=== PATIENT | female | born 1980 | race Caucasian/White ===

== ENCOUNTER 2016-04-22 17:44 | Observation (INO) | payer MEDICAID, SELFPAY ==
[2016-04-22] VITALS (7 sets, daily range): BP systolic 87–124; BP diastolic 57–95; PULSE 93–127; RESP 15–23; TEMP 37.2–38.2; O2SAT 91–100; BMI 26.2; BMI 27.1
--- NOTE | 2016-04-22 18:03 | EKG12_ITS ---
Test Reason : DYSRHYTHMIA Blood Pressure : / mmHG Vent. Rate : 115 BPM Atrial Rate : 115 BPM P-R Int : 130 ms QRS Dur : 084 ms QT Int : 342 ms P-R-T Axes : 080 089 055 degrees QTc Int : 473 ms Sinus tachycardia Otherwise normal ECG Confirmed by LISA ZACARIAS, GUNNAR ([id number]), scientific editor TONY NORRIS ([id number] on 04/25/2016 1:38:12 PM Referred By: TARA Confirmed By:GUNNAR GONZALEZ MD
--- NOTE | 2016-04-22 18:03 | RAD_ITS ---
STUDY: X-RAY CHEST REASON FOR EXAM: Female, 35 years old. Chest pain TECHNIQUE: Single AP portable view of the chest. COMPARISON: 03/05/2016, 03/26/2016.. FINDINGS: Since prior exam, patient has developed focal infiltrate in the left lung base, probably a left lower lobe pneumonia. No other changes or acute abnormalities. Normal size heart. Normal mediastinum and clarence. Normal visualized pulmonary arteries. Normal visualized aortic arch and descending thoracic aorta. Normal visualized thoracic spine. Normal visualized ribs, clavicles, and shoulders. There is no demonstrated abnormality of the visualized soft tissue structures of the upper abdomen. RAD/Chest 1 View (Portable) IMPRESSION: Since prior exam, patient has developed focal infiltrate in the left lung base, probably a left lower lobe pneumonia. Electronically Signed: Brennan Harrington MD at 18:38 EST , Service support [phone],
[2016-04-22] MEDS: Acetaminophen 500 MG Tablet PO (18:55)
[2016-04-22] MEDS: 0.9% Normal Saline 1,000 ML IV.SOLN. 2000 ML IV (18:55)
[2016-04-22 19:06] LABS: Absolute Lymphocyte Count 1.96 X10^3/ul (0.83-4.51); Absolute Neutrophil Count 9.6 X10^3/uL (2.0-7.7); Basophil# 0.04 X10^3/uL; Basophil% 0.3 % (0-1); Eosinophil# 0.15 X10^3/uL; Eosinophils% 1.1 % (0-5); Hematocrit 41.3 % (37-47); Hemoglobin 13.8 g/dl (12.0-15.0); Lymphocyte # 1.96 X10^3/ul (4.0); Lymphocyte % 14.5 % (19-41); Mean Corp Hgb Conc 33.4 g/gl (32-36); Mean Corpuscular Hgb 31.4 pg (27.0-32.0); Mean Corpuscular Volume 93.9 fL (81-99); Mean Platelet Vol. 9.5 fl (6.2-12.0); Monocyte# 1.69 X10^3/uL; Monocyte% 12.5 % (0-10); Neutrophil # 9.61 X10^3/uL (2.7-7.7); Neutrophil % 71.3 % (47-70); Platelet Count 382 K/mm3 (150-450); RBC Distribution Width CV 13.8 % (11.6-14.6); RBC Distribution Width SD 45.4 fl (35.1-43.9); White Blood Count 13.5 K/mm3 (4.4-11.0)
[2016-04-22 19:07] LABS: Differential Indicated SCAN CRITERIA MET; POSITIVE COUNT NO; POSITIVE DIFFERENTIAL YES; POSITIVE MORPHOLOGY NO
[2016-04-22 19:35] LABS: ALB/GLOB Ratio 0.6 RATIO (0.9-2.4); AST(SGOT) 29 U/L (15-37); Alanine Aminotransfer ALT/SGPT 25 U/L (12-78); Albumin, Serum 3.3 g/dL (3.4-5.0); Alkaline Phosphatase 74 U/L (45-117); Anion Gap 9 (5-15); BUN 13 mg/dL (7-18); BUN/Creat Ratio 18.6 RATIO (10-20); Chloride 100 mmol/L (98-107); EST Glomerular Filtration Rate 100 mL/min (>60); Est Glom Filt Rate - Afr Amer 121 mL/min (>60); Estimated Creatinine Clearance 91.02 ml/min; Globulin 5.5 g/dL (2.3-3.5); Glucose 91 mg/dL (70-110); Potassium 3.6 mmol/L (3.5-5.1); Protein, Total 8.8 g/dL (6.4-8.2); Sodium Level 135 mmol/L (136-145)
[2016-04-22 19:38] LABS: Bacteria 0 SEEN /hpf (None Seen)
[2016-04-22 19:40] LABS: Color, Urine Yellow (Yellow); Glucose, Dipstick Normal (Normal); Ketone-Dipstick Negative (Negative); Leukocyte Esterase-Dipstick 25 /ul (Negative); Nitrite-Dipstick Negative (Negative); Occult Blood-Urine 25 /ul (Negative); Protein-Dipstick 100 mg/dl (Negative); Specific Gravity, Urine 1.025 (1.002-1.030); Urine Bilirubin Dipstick Negative (Negative); Urine Clarity Sl. Cloudy (Clear); Urine Urobilinogen 1 mg/dl (Normal)
[2016-04-22 19:40] LABS: Differential Comment SCANNED; Platelet Estimate ADEQUATE (ADEQ)
[2016-04-22 19:48] LABS: International Normalized Ratio 1.3; Prothrombin Time (Protime)PT. 15.8 SECONDS (11.7-14.9)
[2016-04-22 19:49] LABS: Partial Thromboplast Time 36.1 Seconds (24.1-36.2)
[2016-04-22 19:50] LABS: Amorphous Sediment 1+ URATE; Mucous, Urine 1+ /hpf (<or=2+); Red Blood Cells-Urine 0-5 SEEN /hpf (0-5); Squamous Epithelial Cells - UA 5-10 SEEN /hpf (5-10); White Blood Cells 0-5 SEEN /hpf (0-5)
[2016-04-22 19:58] LABS: Lactic Acid 1.1 mmol/L (0.4-2.0)
--- NOTE | 2016-04-22 21:21 | HP.PCM_ITS ---
History of Present Illness Date of Admission: 04/22/16 Chief Complaint: Pain all over, shortness of breath The patient is a 35 year old female came into the ED complaining of pain all over, shortness of breath, nausea, something on skin. Patient was seen and examined in the ED. Anxious, somewhat agitated. Very poor historian. States that his symptoms started on Saturday-2 days ago, she was getting very sick, and was getting progressively worse in the last 2 days. She complains of worsening pain all over, shortness of breath, cough productive of yellow/brownish sputum, fever and chills, she did not check her temperature at home. She does have pain with deep inspiration and shows the diaphragm on both sides. She also complains of something on her skin, there is painful, and feeling like bugs are crawling underneath of her skin. Patient states that she was cleaning some of the house who had bedbugs, and she is afraid she gets to bed bugs too. Patient denies urinary complaints, says it does have nausea and vomiting for the last 2 days, states that have had black color vomitus. States that have had diarrhea but had black color in it, also noted some blood in the stool, nevertheless her hemoglobin is normal in the ED. Past medical history. Polysubstance abuse. Depression. Chronic pain, used to follow his pain management, but was fired from pain management clinic for noncompliance. Social history. 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 Patient has history of polysubstance abuse, admits on using methamphetamine and Saturday-2 days ago, marijuana brownie recently. Says that last week was taking Percocets from her dentist. She also was taking muscle relaxants, she states it is a left over from her previous prescriptions. Patient states that she clean is clean from heroin for 1 year. Patient says that she was sober for 6 years. Smokes 1 pack per day, smoking since age of 8. Family history. No relevant history per patient. Past Medical History Allergies ibuprofen Allergy (Verified 04/22/16 17:48) Hives naproxen Allergy (Verified 04/22/16 17:48) Anaphylaxis prednisone Allergy (Verified 04/22/16 17:48) Anaphylaxis Home Medications: Ambulatory Orders Medication Instructions Recorded Hydroxyzine Pamoate [Vistaril] 50 mg PO TID PRN 04/21/16 Paroxetine [Paxil] 10 mg PO DAILY 04/21/16 Quetiapine Fumarate [Seroquel] 50 mg PO TID 04/21/16 Quetiapine Fumarate [Seroquel] 200 mg PO QHS 04/21/16 Trazodone HCl [Desyrel] 100 mg PO QHS 04/22/16 Surgical History: - - Tubal ligation Psychiatric History: No pertinent psych hx DIRECTOR MEETINGS History: No pertinent DIRECTOR MEETINGS history Smoking Status: Current every day smoker - *Family History Maternal History Items: Cancer Paternal History Items: - - CHF Review of Systems Constitutional: Reports: Anorexia, Chills, Fever. Denies: Malaise, Weakness, Fatigue Eyes: Denies: Vision Change HEENT: Denies: Visual Changes Cardiovascular: Reports: Edema, - - Patient reports pain all over, reports chest pain but it seems to be more like pleuritic at the level of the diaphragm.. Denies: Light Headedness Respiratory: Reports: Cough, Pleuritic Pain, Shortness of Breath, Sputum production. Denies: Hemoptysis Gastrointestinal: Reports: Abdominal Pain, Constipation, Diarrhea, Dyspepsia, Hematemesis, Nausea, Melena, Vomiting. Denies: Hematochezia Genitourinary: Denies: Dysuria, Frequency, Hematuria, Hesitancy, Incontinence, Retention, Urgency Gynecological: Denies: Vaginal discharge, Vaginal itching Musculoskeletal: Reports: - - Patient reports pain all over Skin: Reports: Lesions, Pruritis, Rash, Skin Changes Neurological: Denies: Balance problems, Blurred vision, Double vision, Change in Speech, Slurred speech, Confusion, Difficulty swallowing, Focal weakness, Headaches, Incoordination, Numbness, Tremor, Seizures Psychiatric: Reports: Anxiety, Depression. Denies: Suicidal Ideations Endocrine: Denies: Change in Body Habitus Hematologic/ Lymphatic: Denies: Adenopathy, Anemia, Petechiae, Hx of blood clot Comment: On the questions of review of systems patient chest to answer yes to almost any question, and is extremely hard to get adequate and reliable answers from her VTE Information - Inpt Only VTE Present on Admission: No Objective: General: Patient is sitting in bed, anxious and agitated, thrashing in bed, cannot sit still for less than few seconds. Awake, alert, oriented ?3. HEENT: Atraumatic, Normocephalic. Clear conjunctiva. Oral mucosa is slightly dry. Neck: No no asymmetry. PERRLA. Skin: Clean, dry, multiple tattoos all over, multiple scabs all over, and the areas were patient shows to have crawling sensation on her neck no visible rashes noted. Patient has excoriations all over. His skin discoloration mostly on her head and upper extremities. Lungs: Good air entry bilaterally with mild rhonchi CVS: S1-S2 present, no murmurs appreciated, regular rate, good radial pulses. Capillary refill is less than 3 Seconds. Abdomen: Soft, extremely tender with palpation over, although when patient is get distracted she does not appear to be in pain with palpation, no guarding, no rebound tenderness, nondistended, bowel sounds present. Bilateral CVA tenderness. Extremities: No clubbing, No cyanosis. No visible deformities. No lower extremity edema. Psych/Mental Status: Patient does look to be anxious and somewhat agitated, although answers appropriately and follow commands. Neuro: No focal neurological findings. - Physical Exam Vital Signs Temp Pulse Resp BP Pulse Ox 37.7 C 102 22 114/95 99 04/22/16 18:53 04/22/16 20:01 04/22/16 20:01 04/22/16 20:01 04/22/16 20:01 Oxygen Delivery Method Room Air Weight: 67.3 kg Body Mass Index (BMI) 26.2 Finger Stick Blood Glucose 115 Laboratory Tests Past 24 Hrs 04/22/16 04/22/16 04/22/16 18:50 18:50 19:20 WBC 13.5 H RBC 4.40 Hgb 13.8 Hct 41.3 MCV 93.9 MCH 31.4 MCHC 33.4 RDW 13.8 RDW Differential 45.4 H Plt Count 382 MPV 9.5 Immature Gran % (Auto) 0.300 Neut % (Auto) 71.3 H Lymph % (Auto) 14.5 L [place] % (Auto) 12.5 H Eos % (Auto) 1.1 Baso % (Auto) 0.3 Absolute Neuts (auto) 9.6 H Absolute Lymphs (auto) 1.96 Total Counted Not Reportable Differential Comment SCANNED Platelet Estimate ADEQUATE PT 15.8 H INR 1.3 APTT 36.1 Sodium 135 L Potassium 3.6 Chloride 100 Carbon Dioxide 26.0 Anion Gap 9 BUN 13 Creatinine 0.70 Estim Creat Clear Calc 91.02 Est GFR (MDRD) Af Amer 121 Est GFR (MDRD) Non-Af 100 BUN/Creatinine Ratio 18.6 Glucose 91 Lactic Acid Calcium 9.0 Total Bilirubin 0.60 AST 29 ALT 25 Alkaline Phosphatase 74 Total Protein 8.8 H Albumin 3.3 L Globulin 5.5 H Albumin/Globulin Ratio 0.6 L Urine Color Urine Clarity Urine pH Ur Specific [place] Urine Protein Urine Glucose (UA) Urine Ketones Urine Occult Blood Urine Nitrite Urine Bilirubin Urine Urobilinogen Ur Leukocyte Esterase Urine RBC Urine WBC Ur Squamous Epith Cells Amorphous Sediment Urine Bacteria Urine Mucus 04/22/16 04/22/16 19:20 19:30 WBC RBC Hgb Hct MCV MCH MCHC RDW RDW Differential Plt Count MPV Immature Gran % (Auto) Neut % (Auto) Lymph % (Auto) [place] % (Auto) Eos % (Auto) Baso % (Auto) Absolute Neuts (auto) Absolute Lymphs (auto) Total Counted Differential Comment Platelet Estimate PT INR APTT Sodium Potassium Chloride Carbon Dioxide Anion Gap BUN Creatinine Estim Creat Clear Calc Est GFR (MDRD) Af Amer Est GFR (MDRD) Non-Af BUN/Creatinine Ratio Glucose Lactic Acid 1.1 Calcium Total Bilirubin AST ALT Alkaline Phosphatase Total Protein Albumin Globulin Albumin/Globulin Ratio Urine Color Yellow Urine Clarity Sl. Cloudy Urine pH 6.0 Ur Specific [place] 1.025 Urine Protein 100 H Urine Glucose (UA) Normal Urine Ketones Negative Urine Occult Blood 25 H Urine Nitrite Negative Urine Bilirubin Negative Urine Urobilinogen 1 H Ur Leukocyte Esterase 25 H Urine RBC 0-5 SEEN Urine WBC 0-5 SEEN Ur Squamous Epith Cells 5-10 SEEN Amorphous Sediment 1+ URATE Urine Bacteria 0 SEEN Urine Mucus 1+ Assessment/Plan * Left lower lobe community acquired pneumonia. Treatment per pneumonia protocol with antibiotics, breathing treatments, expectorants. Will follow with Legionella, strep antigens. It is possible that patient has pleuritic pain - will give Tylenol and lidocaine, will monitor for response. We are very cautious giving opioids as patient has history of polysubstance abuse. * Sepsis, SIRS Criteria 3/4, source of infection is community acquired pneumonia. Stable blood pressure, normal lactic acid. Cultures obtained, continue antibiotics, IV fluids. * History of polysubstance abuse. Patient reports pain all over, recent use of opiates, methamphetamine, marijuana. Suspect withdrawal - considering pain all over, diarrhea, crawling sensation on the skin, etc. Will follow his urine toxicology screen. Patient reports allergy to NSAIDs. Review of systems patient tries to answer yes and a lot of pain questions. 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 Suspect drug-seeking behavior. Will be very cautious with pain meds, will start her on Tylenol for now, will observe, considering history of opiate dependency/abuse will avoid opiates as much as possible. * Patient reports history of depression, taking paroxetine. Suspect also underlying psychiatric problem as she was on Seroquel as well. We will continue home medications, will monitor. * Tobacco use disorder. Smoking cessation counseling. Nicotine replacement therapy with nicotine patch. * DVT prophylaxis with Lovenox SQ. Dragon Dictation.
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
[2016-04-22] MEDS: 0.9% Normal Saline 1,000 ML 100 ML IV (23:42)
[2016-04-22] MEDS: Ipratropium/Albuterol Sulfate 3 ML AMPUL.NEB INHALATION (23:56)
--- NOTE | 2016-04-22 23:59 | NURSING ---
Patient c/o 11/27 pain, states it is the worst pain she's ever felt in her life. This nurse offered patient tylenol as per Dr Solitario orders. Patient refuses tylenol stating if they're going to treat this as a joke then I'll just leave. Charge nurse notified of patient's complaint. Dr Solitario paged to notify and that patient would like to speak to him.
[2016-04-23] VITALS (13 sets, daily range): BP systolic 90–112; BP diastolic 36–60; PULSE 88–121; RESP 18–20; TEMP 36.7–39; O2SAT 92–99
--- NOTE | 2016-04-23 00:21 | NURSING ---
Dr Solitario ordered patient lidocaine patches to be applied to left side and states that this is the only order he is willing to give at this time. Patient notified of this new order and states that lidocaine does not work for her. Patient notified that this is the only order Dr Solitario is willing to give at this time. Patient responded that she is willing to try the patches because the dr ordered it and I will follow the dr's orders but if they don't work she will leave and take care of this pain herself. Dr Solitario was notified of patient's desire to leave AMA if she does not get pain relief and he states he is ok with that.
[2016-04-23] MEDS: Lidocaine 5% Patch 2 PATCH TOPICAL (00:59)
[2016-04-23] MEDS: Pantoprazole Sodium 40 MG Tablet PO ×2 (01:05→10:22)
[2016-04-23 02:44] LABS: Amphetamine Urine VISTA POSITIVE (<1000 ng/mL); Barbiturate Urine VISTA NEGATIVE (< 200 ng/mL); Benzodiazepine Urine VISTA NEGATIVE (< 200 ng/mL); Cocaine Urine VISTA NEGATIVE (< 300 ng/mL); Ecstacy Urine VISTA NEGATIVE (< 500 ng/mL); Methadone Urine VISTA NEGATIVE (< 300 ng/mL); PCP Urine VISTA NEGATIVE (< 25 ng/mL); THC Urine VISTA NEGATIVE (< 50 ng/mL); Vista UDS pH Range 5
--- NOTE | 2016-04-23 05:32 | NURSING ---
After sleeping for several hours, pt awoke screaming in pain, denies that she's been able to sleep in 48 hrs, demanding something for pain relief. Dr Solitario paged. Patient unable to calm down, yelling cuss words.
--- NOTE | 2016-04-23 05:55 | US_ITS ---
STUDY: RENAL ULTRASOUND - COMPLETE REASON FOR EXAM: Female, 35 years old. flank pain TECHNIQUE: Ultrasound evaluation of the kidneys was performed with real-time and static inman-scale imaging. COMPARISON: None. FINDINGS: RIGHT KIDNEY: Normal location of the right kidney, which is normal in size. The right kidney measures 12.3x 6x5.9 cm. There is a normal cortex of the right kidney. The renal cortex measures 1.2 cm. There is no right renal mass or cyst. There are no right renal calculi. There is no right hydronephrosis. DISTAL RIGHT URETER: There is non-visualization of the distal right ureter. There is no demonstrated right ureterovesical junction calculus. There is no demonstrated right ureteral jet. LEFT KIDNEY: Normal location of the left kidney, which is normal in size. The left kidney measures 15x3.9x7.0 cm. There is a normal cortex of the left kidney. The renal cortex measures 1.7 cm. There is no left renal mass or cyst. There are no left renal calculi. There is no left hydronephrosis. DISTAL LEFT URETER: There is non-visualization of the distal left ureter. There is no demonstrated left ureterovesical junction calculus. There is no demonstrated left ureteral jet. AORTA: There is no demonstrated aneurysm.. I.V.C.: The IVC is patent. US/Kidney and Bladder IMPRESSION: Normal ultrasound of the kidneys and urinary bladder. Electronically Signed: Delvis Woody MD at 10:18 EST Tel , Service support [phone],
[2016-04-23] MEDS: Ipratropium/Albuterol Sulfate 3 ML AMPUL.NEB INHALATION (07:07)
--- NOTE | 2016-04-23 07:14 | CPS ---
Pt refused PEP at this time
--- NOTE | 2016-04-23 09:36 | PCM.PROGNOTE ---
Subjective: Chief complaint: Follow-up after admission for community-acquired pneumonia. Patient seen and examined. No acute events overnight. She is sleepy but arousable. She complains of pain all over. She is complaining of cough with sputum production. Denies fever chills. She has been having spikes of low-grade fever, tachycardia, blood pressure is stable. - Physical Exam General: Alert, Cooperative, No apparent distress, Lethargic HEENT: Atraumatic, PERRLA, EOMI Oral: Moist Mucosa, No Gingival or Mucosal Lesions/ Ulcerations Neck: Supple, No JVD, Negative Carotid Bruits, Thyroid Normal Size and Texture Lungs: Clear to auscultation, No rhonchi, No wheeze, No rales, Diminished, - - Decreased breath sounds bilateral, more on the left base. Cardiovascular: Regular rate, Regular Rhythm, Normal S1, Normal S2, PMI Normal, Tachycardic Abdomen: Bowel Sounds Present, Soft, Non Tender, Non-Distended, No Hepato-splenomegaly Extremities: No clubbing, No cyanosis, No edema Skin: No rashes, No breakdown Lymphatic: No Cervical, Supraclavicular, or Inguinal Adenopathy Neurological: Cranial nerves II-XII grossly intact, - - Moving all limbs. Psych/Mental Status: Flat Affect Vital Signs Temp Pulse Resp BP Pulse Ox 100.2 F 115 20 90/36 94 04/23/16 07:45 04/23/16 07:45 04/23/16 07:45 04/23/16 07:45 04/23/16 07:45 Oxygen Delivery Method Room Air Weight: 153 lb 3.54 oz Body Mass Index (BMI) 27.1 Intake and Output for Last 24 Hours 04/21/16 04/22/16 04/23/16 23:59 23:59 23:59 Intake Total 1773 Output Total 500 Balance 1273 Microbiology Past 72 Hours 04/22/16 23:55 Stool Occult Blood (JANET) - Final Stool Occult Blood Positive Clinical Impression(s) from Imaging Studies Chest X-Ray 04/22/16 18:03 IMPRESSION: Since prior exam, patient has developed focal infiltrate in the left lung base, probably a left lower lobe pneumonia. Electronically Signed: Brennan Harrington MD at 18:38 EST , Service support [phone], Assessment/Plan This is a 35 years old female patient admitted because of shortness of breath and cough as well as pain all over and she was found to have left lower lobe infiltrate consistent with community acquired pneumonia. #1 left lower lobe community-acquired pneumonia/sepsis: She is on IV Rocephin and Zithromax as well as IV fluids. She still having spikes of low-grade fever, tachycardia, blood pressure borderline. Chest x-ray reviewed. Pneumococcal and Legionella antigen were negative. Blood and urine cultures are pending. Lactic acid was normal. Plan: Continue same treatment. #2 polysubstance abuse: Urine drug screen was positive for amphetamines. Patient complains of pain all over with recent use of opioids, methamphetamine and marijuana. At this time, she is slightly tachycardic, blood pressure is borderline. He is on IV fluids, Tylenol as needed, Lidoderm patch, trying to avoid narcotics. #3 depression: Continue continue Paxil and Seroquel. #4 tobacco abuse: Continue nicotine patch. #5 DVT prophylaxis: Subcu Lovenox. This note was generated with vivit dictation software. It may contain incorrect words, spelling, and punctuation that were not noted in checking the note before signing.
--- NOTE | 2016-04-23 09:47 | PN_ITS ---
Subjective: Chief complaint: Follow-up after admission for community-acquired pneumonia. Patient seen and examined. No acute events overnight. She is sleepy but arousable. She complains of pain all over. She is complaining of cough with sputum production. Denies fever chills. She has been having spikes of low- grade fever, tachycardia, blood pressure is stable. - Physical Exam General: Alert, Cooperative, No apparent distress, Lethargic HEENT: Atraumatic, PERRLA, EOMI Oral: Moist Mucosa, No Gingival or Mucosal Lesions/ Ulcerations Neck: Supple, No JVD, Negative Carotid Bruits, Thyroid Normal Size and Texture Lungs: Clear to auscultation, No rhonchi, No wheeze, No rales, Diminished, - - Decreased breath sounds bilateral, more on the left base. Cardiovascular: Regular rate, Regular Rhythm, Normal S1, Normal S2, PMI Normal, Tachycardic Abdomen: Bowel Sounds Present, Soft, Non Tender, Non-Distended, No Hepato- splenomegaly Extremities: No clubbing, No cyanosis, No edema Skin: No rashes, No breakdown Lymphatic: No Cervical, Supraclavicular, or Inguinal Adenopathy Neurological: Cranial nerves II-XII grossly intact, - - Moving all limbs. Psych/Mental Status: Flat Affect Vital Signs Temp Pulse Resp BP Pulse Ox 100.2 F 115 20 90/36 94 04/23/16 07:45 04/23/16 07:45 04/23/16 07:45 04/23/16 07:45 04/23/16 07:45 Oxygen Delivery Method Room Air Weight: 153 lb 3.54 oz Body Mass Index (BMI) 27.1 Intake and Output for Last 24 Hours 04/21/16 04/22/16 04/23/16 23:59 23:59 23:59 Intake Total 1773 Output Total 500 Balance 1273 Microbiology Past 72 Hours 04/22/16 23:55 Stool Occult Blood (JANET) - Final Stool Occult Blood Positive Clinical Impression(s) from Imaging Studies Chest X-Ray 04/22/16 18:03 IMPRESSION: Since prior exam, patient has developed focal infiltrate in the left lung base, probably a left lower lobe pneumonia. Electronically Signed: Brennan Harrington MD at 18:38 EST , Service support [phone], Assessment/Plan This is a 35 years old female patient admitted because of shortness of breath and cough as well as pain all over and she was found to have left lower lobe infiltrate consistent with community acquired pneumonia. #1 left lower lobe community-acquired pneumonia/sepsis: She is on IV Rocephin and Zithromax as well as IV fluids. She still having spikes of low-grade fever , tachycardia, blood pressure borderline. Chest x-ray reviewed. Pneumococcal and Legionella antigen were negative. Blood and urine cultures are pending. Lactic acid was normal. Plan: Continue same treatment. #2 polysubstance abuse: Urine drug screen was positive for amphetamines. Patient complains of pain all over with recent use of opioids, methamphetamine and marijuana. At this time, she is slightly tachycardic, blood pressure is borderline. He is on IV fluids, Tylenol as needed, Lidoderm patch, trying to avoid narcotics. #3 depression: Continue continue Paxil and Seroquel. #4 tobacco abuse: Continue nicotine patch. #5 DVT prophylaxis: Subcu Lovenox. This note was generated with [employer] dictation software. It may contain incorrect words, spelling, and punctuation that were not noted in checking the note before signing.
[2016-04-23] MEDS: Enoxaparin 40 MG/0.4 ML Syringe SC (10:21)
[2016-04-23] MEDS: Azithromycin 250 MG Tablet 500 MG PO (10:24)
[2016-04-23] MEDS: Acetaminophen 325 MG Tablet 650 MG PO ×2 (10:25→21:16)
[2016-04-23] MEDS: 0.9% Normal Saline 1,000 ML 100 ML IV ×2 (10:26→21:19)
[2016-04-23 11:37] LABS: Anion Gap 8 (5-15); BUN 9 mg/dL (7-18); BUN/Creat Ratio 13.6 RATIO (10-20); Chloride 108 mmol/L (98-107); Creatinine, Serum 0.66 mg/dL (0.55-1.02); EST Glomerular Filtration Rate 107 mL/min (>60); Est Glom Filt Rate - Afr Amer 129 mL/min (>60); Estimated Creatinine Clearance 96.54 ml/min; Glucose 93 mg/dL (70-110); Potassium 3.5 mmol/L (3.5-5.1); Sodium Level 141 mmol/L (136-145)
[2016-04-23] MEDS: Cefdinir 300 MG Capsule PO ×2 (12:43→21:19)
[2016-04-24] VITALS (9 sets, daily range): BP systolic 87–112; BP diastolic 53–76; PULSE 69–105; RESP 14–20; TEMP 37.1–37.2; O2SAT 94–98
[2016-04-24] MEDS: 0.9% Normal Saline 1,000 ML 100 ML IV ×2 (07:17→18:39)
[2016-04-24] MEDS: Enoxaparin 40 MG/0.4 ML Syringe SC (09:29)
[2016-04-24] MEDS: Cefdinir 300 MG Capsule PO ×2 (09:29→21:44)
[2016-04-24] MEDS: Pantoprazole Sodium 40 MG Tablet PO (09:29)
[2016-04-24] MEDS: Azithromycin 250 MG Tablet 500 MG PO (09:29)
--- NOTE | 2016-04-24 10:04 | PN_ITS ---
Subjective: Chief complaint: Follow-up after admission for community-acquired pneumonia. Patient seen and examined. No acute events overnight. Today, she complains of left lower lateral chest pain which is likely pleuritic pain secondary to pneumonia. She has spiked fever last night, still complained of cough with sputum production. Denied anterior chest pain, dizziness or lightheadedness. This morning, blood pressure was borderline but stable, she has no symptoms. - Physical Exam General: Alert, Oriented x3, Cooperative HEENT: Atraumatic, PERRLA, EOMI Oral: Moist Mucosa, No Gingival or Mucosal Lesions/ Ulcerations Neck: Supple, No JVD, Negative Carotid Bruits, Trachea Midline, Thyroid Normal Size and Texture Lungs: Clear to auscultation, No rhonchi, No wheeze, No rales, Diminished, - - These breath sounds bilateral, more on the left base. Cardiovascular: Regular rate, Regular Rhythm, Normal S1, Normal S2 Abdomen: Bowel Sounds Present, Soft, Non Tender, Non-Distended, No Hepato- splenomegaly Extremities: No clubbing, No cyanosis, No edema Skin: No rashes, No breakdown Neurological: Neuro grossly intact Psych/Mental Status: Flat Affect, Depressed Vital Signs Temp Pulse Resp BP Pulse Ox 98.8 F 83 16 95/53 95 04/24/16 09:39 04/24/16 09:39 04/24/16 09:39 04/24/16 09:39 04/24/16 09:39 Oxygen Delivery Method Room Air Weight: 153 lb 3.54 oz Body Mass Index (BMI) 27.1 Intake and Output for Last 24 Hours 04/22/16 04/23/16 04/24/16 23:59 23:59 23:59 Intake Total 4503 2354 Output Total 500 Balance 4003 2354 Microbiology Past 72 Hours 04/23/16 10:35 Gram Stain - Final Sputum, Expectorated/Coughed 04/22/16 23:55 Stool Occult Blood (JANET) - Final Stool Occult Blood Positive Laboratory Tests Past 24 Hrs 04/23/16 10:20 Sodium 141 Potassium 3.5 Chloride 108 H Carbon Dioxide 25.0 Anion Gap 8 BUN 9 Creatinine 0.66 Estim Creat Clear Calc 96.54 Est GFR (MDRD) Af Amer 129 Est GFR (MDRD) Non-Af 107 BUN/Creatinine Ratio 13.6 Glucose 93 Calcium 8.0 L Assessment/Plan This is a 35 years old female patient admitted because of shortness of breath and cough as well as pain all over and she was found to have left lower lobe infiltrate consistent with community acquired pneumonia. #1 left lower lobe community-acquired pneumonia/sepsis: She is on oral Zithromax and Omnicef. She still having spikes of low-grade fever, no more tachycardia, blood pressure is borderline but stable. Chest x-ray reviewed. Pneumococcal and Legionella antigen were negative. Urine culture showed mixed growth. Blood and sputum cultures are pending. Lactic acid was normal. Plan: Continue same treatment, possible DC home tomorrow. #2 polysubstance abuse: Urine drug screen was positive for amphetamines. Patient complains of pain all over with recent use of opioids, methamphetamine and marijuana. Vital signs stabilized, no more tachycardic, blood pressure is borderline but stable.. He is on IV fluids, Tylenol as needed, Lidoderm patch, trying to avoid narcotics. #3 depression: Continue continue Paxil and Seroquel. #4 tobacco abuse: Continue nicotine patch. #5 DVT prophylaxis: Subcu Lovenox. This note was generated with [employer] dictation software. It may contain incorrect words, spelling, and punctuation that were not noted in checking the note before signing.
[2016-04-24] MEDS: 0.9% NaCl Peripheral Flush Adult/Peds 5 ML IV ×2 (10:40→18:37)
[2016-04-24] MEDS: Ketorolac 30 MG/ML Syringe IV ×2 (10:40→18:37)
--- NOTE | 2016-04-24 10:44 | CASEMGMT ---
Addendum entered by Yen Greenwood 04/24/16 11:03: Return call from [facility] at [facility]. Pt has been a client at [facility] since 2007. Appointment set for Saturday04/27/16 at 9:45. Written appointment date and time provided to patient. BRAD Guerrero Original Note: Met with pt in room and introduced self and role of SW. Pt states that she lives alone and does have support from her sister if needed. She states she does have two children who are 16 and 18 and she and the children's father have shared custody. Discussed [facility] drug program with patient and pt stating that she is familiar with the program but has never used it. Initially pt resistant to program but as conversation continued she states she would like to see someone there. She is agreeable to SW setting up appointment for her and when asked she confirms that she has transportation or can walk to the appointment. Pt then states that she has a court appointment tomorrow with Judge Milton and is concerned that she will not be at the hearing. Per physician, discharge is not anticipated for today. ROLAN placed phone call to [facility]. Spoke with secretary administrative assistant at [employer]'s office who confirms that pt has an arraignment with Judge Cardona tomorrow and lackey had been previously posted for pt and she is to appear tomorrow. SW informed that pt is currently in the hospital and is expected to be here overnight. Hand Binder[employer] Assembly Worker expressed understanding of this and states that this SW and hospital does not need to do anything further although she does not know how the court will handle this situation. Phone call placed to [facility] to set up appointment. Message left with Arleth Pittman to return call to set up appointment. Met with pt and informed her that court has been notified of her hospitalization and that she will need to follow up with the court to determine what the next step she will need to take is. SW will remain available should needs arise. BRAD Guerrero
[2016-04-24] MEDS: Acetaminophen 325 MG Tablet 650 MG PO (14:41)
--- NOTE | 2016-04-24 15:17 | CM.UR ---
LINE TECHNICIAN NOTE ATTEMPTED TO FIND PCP FOR PATIENT AND HAVE BEEN UNSUCCESSFUL R/T EITHER NOT TAKING NEW PATIENTS OR DO NOT TAKE FOREMAN. PATIENT WILL HAVE TO USE [facility] IN [place].
[2016-04-24 15:32] LABS: Absolute Lymphocyte Count 1.97 X10^3/ul (0.83-4.51); Absolute Neutrophil Count 4.9 X10^3/uL (2.0-7.7); Basophil# 0.02 X10^3/uL; Basophil% 0.3 % (0-1); Eosinophil# 0.31 X10^3/uL; Eosinophils% 3.9 % (0-5); Hematocrit 34.1 % (37-47); Hemoglobin 10.7 g/dl (12.0-15.0); Lymphocyte # 1.97 X10^3/ul (4.0); Mean Corp Hgb Conc 31.4 g/gl (32-36); Mean Corpuscular Hgb 30.4 pg (27.0-32.0); Mean Corpuscular Volume 96.9 fL (81-99); Mean Platelet Vol. 9.8 fl (6.2-12.0); Monocyte# 0.65 X10^3/uL; Monocyte% 8.3 % (0-10); Neutrophil # 4.91 X10^3/uL (2.7-7.7); Neutrophil % 62.4 % (47-70); Platelet Count 396 K/mm3 (150-450); RBC Distribution Width CV 13.7 % (11.6-14.6); RBC Distribution Width SD 48.8 fl (35.1-43.9); Red Blood Count 3.52 M/mm3 (4.2-5.4); White Blood Count 7.9 K/mm3 (4.4-11.0)
[2016-04-24 15:44] LABS: POSITIVE COUNT NO; POSITIVE DIFFERENTIAL NO; POSITIVE MORPHOLOGY NO
[2016-04-25] VITALS (9 sets, daily range): BP systolic 107–121; BP diastolic 65–85; PULSE 62–85; RESP 16–18; TEMP 36.3–36.5; O2SAT 95–98
[2016-04-25] MEDS: 0.9% Normal Saline 1,000 ML 100 ML IV (03:00)
[2016-04-25] MEDS: Ketorolac 30 MG/ML Syringe IV (06:54)
--- NOTE | 2016-04-25 09:45 | PCM.PROGNOTE ---
Subjective: Chief complaint: Follow-up after admission for community-acquired pneumonia. Patient seen and examined. No acute events overnight. Always, she is not interested in opening her eyes or talk to the nursing staff as well as me. She complains of left lateral pleuritic chest pain. Denied shortness of breath. Denies fever chills. Vital signs are stable, afebrile. - Physical Exam General: Alert, Cooperative, No apparent distress HEENT: Atraumatic, PERRLA, EOMI Oral: Moist Mucosa, No Gingival or Mucosal Lesions/ Ulcerations Neck: Supple, No JVD, Negative Carotid Bruits, Thyroid Normal Size and Texture Lungs: Clear to auscultation, No rhonchi, No wheeze, No rales, Diminished Cardiovascular: Regular rate, Regular Rhythm, Normal S1, Normal S2, PMI Normal Abdomen: Bowel Sounds Present, Soft, Non Tender, Non-Distended, No Hepato-splenomegaly Extremities: No clubbing, No cyanosis, No edema Skin: No rashes, No breakdown Neurological: Neuro grossly intact Psych/Mental Status: Flat Affect Vital Signs Temp Pulse Resp BP Pulse Ox 97.7 F 66 16 121/70 96 04/25/16 03:00 04/25/16 04:04 04/25/16 03:00 04/25/16 03:00 04/25/16 07:16 Oxygen Delivery Method Room Air Weight: 153 lb 3.54 oz Body Mass Index (BMI) 27.1 Intake and Output for Last 24 Hours 04/23/16 04/24/16 04/25/16 23:59 23:59 23:59 Intake Total 4503 5476 2007 Output Total 500 Balance 4003 5476 2007 Microbiology Past 72 Hours 04/23/16 10:35 Gram Stain - Final Sputum, Expectorated/Coughed Respiratory Culture - Preliminary Beta streptococcus 04/22/16 23:55 Stool Occult Blood (JANET) - Final Stool Occult Blood Positive Laboratory Tests Past 24 Hrs 04/24/16 14:53 WBC 7.9 RBC 3.52 L Hgb 10.7 L Hct 34.1 L MCV 96.9 MCH 30.4 MCHC 31.4 L RDW 13.7 RDW Differential 48.8 H Plt Count 396 MPV 9.8 Immature Gran % (Auto) 0.100 Neut % (Auto) 62.4 Lymph % (Auto) 25.0 Alexander % (Auto) 8.3 Eos % (Auto) 3.9 Baso % (Auto) 0.3 Absolute Neuts (auto) 4.9 Absolute Lymphs (auto) 1.97 Total Counted Not Reportable Assessment/Plan This is a 35 years old female patient admitted because of shortness of breath and cough as well as pain all over and she was found to have left lower lobe infiltrate consistent with community acquired pneumonia. #1 left lower lobe community-acquired pneumonia/sepsis: She is on oral Zithromax and Omnicef. She has been afebrile overnight, other vital signs were stable. stable. Chest x-ray reviewed. Pneumococcal and Legionella antigen were negative. Urine culture showed mixed growth. Sputum culture showed beta Streptococcus, pending final report. Blood cultures pending.. Lactic acid was normal. Plan: DC home today. #2 polysubstance abuse: Urine drug screen was positive for amphetamines. Patient complains of pain all over with recent use of opioids, methamphetamine and marijuana. Vital signs stabilized, no more tachycardic, blood pressure is borderline but stable.. He is on IV fluids, Tylenol as needed, Lidoderm patch, trying to avoid narcotics. #3 depression: Continue continue Paxil and Seroquel. #4 tobacco abuse: Continue nicotine patch. #5 DVT prophylaxis: Subcu Lovenox. This note was generated with [employer] dictation software. It may contain incorrect words, spelling, and punctuation that were not noted in checking the note before signing.
[2016-04-25] MEDS: Cefdinir 300 MG Capsule PO (09:48)
[2016-04-25] MEDS: Pantoprazole Sodium 40 MG Tablet PO (09:49)
--- NOTE | 2016-04-25 09:49 | PCM.DC ---
Discharge Diet: No Restrictions Discharge Activity: Return to Normal Activity Weight Bearing Status: Full weight bearing Call your doctor if you observe: Fever of 101 or Higher, Shortness of breath, Dizziness, Fainting spells, Chest pain, Increased palpitations (irregular heartbeat), Uncontrolled pain Instructions: Discharge Instructions for Pneumonia Allergies/Adverse Reactions: Allergies ibuprofen Allergy (Verified 04/22/16 17:48) Hives naproxen Allergy (Verified 04/22/16 17:48) Anaphylaxis prednisone Allergy (Verified 04/22/16 17:48) Anaphylaxis Medications to take at Discharge Hydroxyzine Pamoate [Vistaril] 50 mg PO TID PRN 04/21/16 Paroxetine [Paxil] 10 mg PO DAILY 04/21/16 Quetiapine Fumarate [Seroquel] 50 mg PO TID 04/21/16 Quetiapine Fumarate [Seroquel] 200 mg PO QHS 04/21/16 Trazodone HCl [Desyrel] 100 mg PO QHS 04/22/16 Amox/Clavulanate Tablet [Augmentin Tablet] 875 mg PO Q12H #14 tablet 04/25/16 Ketorolac [Toradol] 10 mg PO Q8H PRN #20 tablet 04/25/16 The following prescriptions were given: Amox/Clavulanate Tablet [Augmentin Tablet] 875 mg PO Q12H #14 tablet Ketorolac [Toradol] 10 mg PO Q8H PRN #20 tablet PRN Reason: pain Primary Care Physician: Care Physician,No Primary [Primary Care Provider] - Please follow up with your Primary Care Physician in: 2 weeks. Please Follow Up With: [facility]
--- NOTE | 2016-04-26 14:09 | PCM.DC.SUM ---
Discharge Date and Diagnosis Date of Admission: 04/22/16 Date of Discharge: 04/25/16 - Primary Discharge Diagnosis #1 left lower lobe streptococcal community-acquired pneumonia. #2 sepsis. Hospital Course and Treatment Imaging Results: Clinical Impression(s) from Imaging Studies Chest X-Ray 04/22/16 18:03 IMPRESSION: Since prior exam, patient has developed focal infiltrate in the left lung base, probably a left lower lobe pneumonia. Electronically Signed: Brennan Harrington MD at 18:38 EST , Service support [phone], Renal Ultrasound 04/23/16 05:55 IMPRESSION: Normal ultrasound of the kidneys and urinary bladder. Electronically Signed: Delvis Woody MD at 10:18 EST Tel , Service support [phone], Operations: None Procedures: None Summary of Care Provided: The patient is a 35 year old F admitted because of shortness of breath and cough as well as left lateral aortic chest pain and she was found to have left lower lobe community-acquired pneumonia. Her chest x-ray chest x-ray revealed left lower lobe infiltrate. She was found to have sepsis based on fever, leukocytosis and tachycardia. She was treated with IV Rocephin and Zithromax and she did respond to treatment very well. Her white blood cell count is not back to normal. Pneumococcal and Legionella antigen were negative. Blood culture showed no growth in 48 hours. Sputum culture showed group C streptococcus. Her routine blood work was unremarkable except for leukocytosis which was resolved. Patient complained of left lateral chest pain continuously and she has been asking for narcotics for pain control. She does have a history of polysubstance abuse. Drug screen was positive for amphetamines. With treatment, patient symptoms improved and she remained afebrile for more than 48 hours. Her respiratory status remained stable and she remained on room air with normal pulse oximeter. Patient discharged home in stable medical condition, discharged on Augmentin for 7 days of treatment, discharged on Toradol for pain as needed, continue with her home medications for depression, recommended to follow-up with PCP in 2 weeks. Discharge Diet: No Restrictions Discharge Activity: Return to Normal Activity Weight Bearing Status: Full weight bearing Call your doctor if you observe: Fever of 101 or Higher, Shortness of breath, Dizziness, Fainting spells, Chest pain, Increased palpitations (irregular heartbeat), Uncontrolled pain Home Medications: Medications to take at Discharge Hydroxyzine Pamoate [Vistaril] 50 mg PO TID PRN 04/21/16 Paroxetine [Paxil] 10 mg PO DAILY 04/21/16 Quetiapine Fumarate [Seroquel] 50 mg PO TID 04/21/16 Quetiapine Fumarate [Seroquel] 200 mg PO QHS 04/21/16 Trazodone HCl [Desyrel] 100 mg PO QHS 04/22/16 Amox/Clavulanate Tablet [Augmentin Tablet] 875 mg PO Q12H #14 tablet 04/25/16 Ketorolac [Toradol] 10 mg PO Q8H PRN #20 tablet 04/25/16 Following Prescrptions Were Given to Patient: Amox/Clavulanate Tablet [Augmentin Tablet] 875 mg PO Q12H #14 tablet Ketorolac [Toradol] 10 mg PO Q8H PRN #20 tablet PRN Reason: pain Primary Care Physician: Care Physician,No Primary [Primary Care Provider] - Please follow up with your Primary Care Physician in: 2 weeks. Please Follow Up With: Rodolfo Romo Patient Instructions: Discharge Instructions for Pneumonia Disposition: Home Minutes spent on discharge:: 24 Patient Condition:: Good Meaningful Use Info Meaningful Use Diagnoses (Choose all that apply): None applicable
--- NOTE | 2016-04-26 14:15 | DS.PCM_ITS ---
Discharge Date and Diagnosis Date of Admission: 04/22/16 Date of Discharge: 04/25/16 - Primary Discharge Diagnosis #1 left lower lobe streptococcal community-acquired pneumonia. #2 sepsis. Hospital Course and Treatment Imaging Results: Clinical Impression(s) from Imaging Studies Chest X-Ray 04/22/16 18:03 IMPRESSION: Since prior exam, patient has developed focal infiltrate in the left lung base, probably a left lower lobe pneumonia. Electronically Signed: Brennan Harrington MD at 18:38 EST , Service support [phone], Renal Ultrasound 04/23/16 05:55 IMPRESSION: Normal ultrasound of the kidneys and urinary bladder. Electronically Signed: Delvis Woody MD at 10:18 EST Tel , Service support [phone], Operations: None Procedures: None Summary of Care Provided: The patient is a 35 year old F admitted because of shortness of breath and cough as well as left lateral aortic chest pain and she was found to have left lower lobe community-acquired pneumonia. Her chest x-ray chest x-ray revealed left lower lobe infiltrate. She was found to have sepsis based on fever, leukocytosis and tachycardia. She was treated with IV Rocephin and Zithromax and she did respond to treatment very well. Her white blood cell count is not back to normal. Pneumococcal and Legionella antigen were negative. Blood culture showed no growth in 48 hours. Sputum culture showed group C streptococcus. Her routine blood work was unremarkable except for leukocytosis which was resolved. Patient complained of left lateral chest pain continuously and she has been asking for narcotics for pain control. She does have a history of polysubstance abuse. Drug screen was positive for amphetamines. With treatment, patient symptoms improved and she remained afebrile for more than 48 hours. Her respiratory status remained stable and she remained on room air with normal pulse oximeter. Patient discharged home in stable medical condition, discharged on Augmentin for 7 days of treatment, discharged on Toradol for pain as needed, continue with her home medications for depression, recommended to follow-up with PCP in 2 weeks. Discharge Diet: No Restrictions Discharge Activity: Return to Normal Activity Weight Bearing Status: Full weight bearing Call your doctor if you observe: Fever of 101 or Higher, Shortness of breath, Dizziness, Fainting spells, Chest pain, Increased palpitations (irregular heartbeat), Uncontrolled pain Home Medications: Medications to take at Discharge Hydroxyzine Pamoate [Vistaril] 50 mg PO TID PRN 04/21/16 Paroxetine [Paxil] 10 mg PO DAILY 04/21/16 Quetiapine Fumarate [Seroquel] 50 mg PO TID 04/21/16 Quetiapine Fumarate [Seroquel] 200 mg PO QHS 04/21/16 Trazodone HCl [Desyrel] 100 mg PO QHS 04/22/16 Amox/Clavulanate Tablet [Augmentin Tablet] 875 mg PO Q12H #14 tablet 04/25/16 Ketorolac [Toradol] 10 mg PO Q8H PRN #20 tablet 04/25/16 Following Prescrptions Were Given to Patient: Amox/Clavulanate Tablet [Augmentin Tablet] 875 mg PO Q12H #14 tablet Ketorolac [Toradol] 10 mg PO Q8H PRN #20 tablet PRN Reason: pain Primary Care Physician: Care Physician,No Primary [Primary Care Provider] - Please follow up with your Primary Care Physician in: 2 weeks. Please Follow Up With: Rodolfo Romo Patient Instructions: Discharge Instructions for Pneumonia Disposition: Home Minutes spent on discharge:: 24 Patient Condition:: Good Meaningful Use Info Meaningful Use Diagnoses (Choose all that apply): None applicable
== END 2016-04-25 13:00 | disposition home or self-care (01) | DRG 720 ==
LOC: ED 11-11 15:30 → MS2 11-11 15:30
PROVIDERS: Admitting Provider Internal Medicine; Emergency Provider Student in an Organized Health Care Education/Training Program; Visit Provider Hospitalist
DX: A41.9 Sepsis, unspecified organism (principal); J15.4 Pneumonia due to other streptococci; F15.10 Other stimulant abuse, uncomplicated; F11.10 Opioid abuse, uncomplicated; F12.10 Cannabis abuse, uncomplicated; R20.2 Paresthesia of skin; J45.909 Unspecified asthma, uncomplicated; G89.29 Other chronic pain; F32.9 Major depressive disorder, single episode, unspecified; Z76.5 Malingerer [conscious simulation]; Z98.51 Tubal ligation status; Z79.899 Other long term (current) drug therapy; F17.200 Nicotine dependence, unspecified, uncomplicated
CPT/HCPCS: 36415; 71010; 76770; 80048; 80053; 80307; 81001; 82274; 83605; 85025; 85610; 85730; 87040; 87070; 87077; 87086; 87088; 87205; 87449; 93005; 94640; 94667; 94668; 99218; 99251; 99282; 99285; 99406; J7030; G0378; G0463

== ENCOUNTER 2021-09-18 10:53 | Emergency (ER) | payer MEDICAID, SELFPAY ==
[2021-09-18 10:53] VITALS: TEMP 36.4; BMI 24.3
--- NOTE | 2021-09-18 11:16 | EX.ED.DYSGE1 ---
HPI History of Present Illness Chief Complaint: Rash Narrative Narrative: Patient presents with generalized rash that is worse on her face, started about a week ago any she keeps picking at it. She does admit to using meth. She has no chest pain. Her main complaint is severe itching. PFSH PFSH Home Medications hydroxyzine pamoate 50 mg capsule (Vistaril) 50 mg PO TID PRN 04/21/16 [History Last Taken Unknown] paroxetine HCl 10 mg tablet 10 mg PO DAILY 04/21/16 [History Last Taken Unknown] quetiapine 200 mg tablet (Seroquel) 200 mg PO QHS 04/21/16 [History Last Taken Unknown] quetiapine 50 mg tablet (Seroquel) 50 mg PO TID 04/21/16 [History Last Taken Unknown] trazodone 100 mg tablet 100 mg PO QHS 04/22/16 [History Last Taken Unknown] amoxicillin 875 mg-potassium clavulanate 125 mg tablet 875 mg PO Q12H ##14 04/25/16 [Rx Last Taken Unknown] ketorolac 10 mg tablet 10 mg PO Q8H PRN pain ##20 04/25/16 [Rx Last Taken Unknown] clindamycin HCl 150 mg capsule 150 mg PO TID #21 caps 09/18/21 [Rx Last Taken Unknown] hydroxyzine pamoate 50 mg capsule (Vistaril) 50 mg PO TID #30 caps 09/18/21 [Rx Last Taken Unknown] Allergy/AdvReac Type Severity Reaction Status Date / Time ibuprofen Allergy Hives Verified 09/18/21 10:56 naproxen Allergy Anaphylaxis Verified 09/18/21 10:56 prednisone Allergy Anaphylaxis Verified 09/18/21 10:56 Social History Smoking Status: Current every day smoker ROS ROS ED ROS Narrative Past medical history: Reviewed, includes history of drug abuse, history of cellulitis and wounds Medications: Reviewed, includes Seroquel and trazodone Social history: Noncontributory Review of systems: All systems negative except as indicated General: No fever Eyes: No visual changes ENT: No upper airway congestion, normal voice Neck: No neck pain Cardiovascular: No chest pain Respiratory: No shortness of breath or cough Gastrointestinal: No abdominal pain, nausea vomiting or diarrhea Genitourinary: No dysuria Musculoskeletal: Denies myalgias no difficulty with ambulation Skin: Rash as in HPI Neurological: No memory loss, confusion or any focal weakness Psych: Anxiety. Hematologic: No easy bleeding or easy bruising EXAM Physical Exam Narrative Exam Narrative: Physical exam General: Well nourished, Well developed, she appears anxious Head: Normocephalic, Atraumatic Eyes: Conjunctiva not pale ENT: Moist membranes. She has a wound on the right side of her face and right forehead region. The wound is open and there is seems to be slight erythema consistent with cellulitis. No induration or fluctuance. Neck: Supple, Nontender, No lymphadenopathy Cardiovascular: Regular rate, Regular rhythm Respiratory: No distress, CTA bilaterally Abdomen: Soft, Nontender, Nondistended Back: Nontender, Normal Inspection. Negative for: CVA tenderness Extremities: Nontender, No edema Skin: Facial wounds as above, otherwise multiple wounds which seems to be from scratching right arms and legs. No other signs of cellulitis. Neurological: Alert, Normal Strength, Normal Sensation Psychological: Hyperalert, fidgety, somewhat pressured speech. She has no hallucinations. She is lucid and coherent. Const Vital Signs: 09/18/21 10:53 Temperature 97.6 F L Temperature Source Temporal MDM MDM MDM Narrative Medical decision making narrative: Patient has multiple wounds, the ones on the face seems to to have the beginning of cellulitis although it is mild. I will be cautious and place the patient on clindamycin, I told her to stop using methamphetamines. I also prescribed Vistaril. Discharge Plan Triage Chief Complaint: Rash ED Provider: Yong Merrill Dx/Rx/DC Orders Clinical Impression: Wound infection, Cellulitis, Methamphetamine abuse Instructions: Wound Infection Tx Prescriptions: New clindamycin HCl 150 mg capsule 150 mg PO TID Qty: 21 0RF hydroxyzine pamoate [Vistaril] 50 mg capsule 50 mg PO TID Qty: 30 0RF No Action paroxetine HCl 10 MG tablet 10 mg PO DAILY Label Comments: mood quetiapine [Seroquel] 200 MG tablet 200 mg PO QHS Label Comments: mental health hydroxyzine pamoate [Vistaril] 50 MG capsule 50 mg PO TID PRN Label Comments: sleep quetiapine [Seroquel] 50 MG tablet 50 mg PO TID Label Comments: mental health trazodone 100 MG tablet 100 mg PO QHS Label Comments: sleep amoxicillin-pot clavulanate 875 MG tablet 875 mg PO Q12H Qty: 14 0RF ketorolac 10 MG tablet 10 mg PO Q8H PRN (Reason: pain) Qty: 20 0RF Primary Care Provider: Care Physician,No Primary Referrals: Care Physician,No Primary [Primary Care Provider] - Disposition Disposition: Home, Self Care
[2021-09-18] MEDS: Clindamycin HCl 150 MG Capsule 300 MG PO (11:35)
[2021-09-18] MEDS: hydrOXYzine PAM 25 MG Capsule 50 MG PO (11:35)
== END 2021-09-18 11:45 | disposition home or self-care (01) ==
LOC: ED 11:38
PROVIDERS: Emergency Provider Emergency Medicine; Visit Provider Emergency Medicine
DX: S00.81XA Abrasion of other part of head, initial encounter (principal); F15.10 Other stimulant abuse, uncomplicated; X58.XXXA Exposure to other specified factors, initial encounter; L03.211 Cellulitis of face; F17.200 Nicotine dependence, unspecified, uncomplicated
CPT/HCPCS: 99285

== ENCOUNTER 2021-12-18 00:18 | Inpatient (IN) | payer MEDICAID, SELFPAY ==
[2021-12-18] VITALS (46 sets, daily range): BP systolic 84–150; BP diastolic 58–112; PULSE 89–140; RESP 10–33; TEMP 35.9–38.2; O2SAT 92–936; BMI 23.3; BMI 22.0
[2021-12-18] MEDS: Etomidate 20 MG/10 ML Vial IV (00:20)
[2021-12-18] MEDS: Succinylcholine Chloride 200 MG/10 ML SYRINGE 100 MG IV (00:20)
--- NOTE | 2021-12-18 00:22 | RAD_ITS ---
STUDY: X-RAY CHEST REASON FOR EXAM: Female, 41 years old. aspiration TECHNIQUE: Single AP portable view of the chest. COMPARISON: 12/15/2016. FINDINGS: The endotracheal tube has the tip 5 cm above hailee. The nasogastric tube has the tip below the diaphragm with sidehole just beyond the EG junction. There is mild fullness of central markings and the cephalad distribution which may be due to supine projection. Otherwise lung tenorio are clear. There is no demonstrated pleural abnormality. Normal size heart. Normal mediastinum and clarence. Normal visualized pulmonary arteries. Normal visualized aortic arch and descending thoracic aorta. Normal visualized thoracic spine. Normal visualized ribs, clavicles, and shoulders. There is no demonstrated abnormality of the visualized soft tissue structures of the upper abdomen. RAD/Chest 1 View (Portable) IMPRESSION: Lines and tubes as described. Recommend advancing the nasogastric tube approximately 7-8 cm. Fullness of central markings encephali distribution, likely secondary to supine projection. Otherwise no acute cardiac pulmonary disease. Electronically Signed: Shannan Merino MD at 1:11 EDT ,
--- NOTE | 2021-12-18 00:22 | CT_ITS ---
STUDY: CT BRAIN WITHOUT CONTRAST REASON FOR EXAM: Female, 41 years old. unresponsive RADIATION DOSAGE (If Supplied By Facility): CTDIvol = ( 44.99 ) mGy, DLP = ( 796.11 ) mGycm TECHNIQUE: Transaxial CT imaging of the brain was performed without administration of intravenous contrast material. Individualized dose optimization techniques were used for this CT. COMPARISON: No relevant priors. FINDINGS: Normal soft tissue structures. Normal calvarium. Normal size ventricles and extra-axial spaces for the patient''s age. Normal white matter tracts of the cerebral hemispheres. Normal basal ganglia and thalami. Normal brainstem. Normal cerebellum. There is no intracranial hemorrhage. There are no findings of an acute ischemic infarction. There is mucosal thickening involving the bilateral ethmoids with air-fluid level within the sphenoid, bilateral maxillary and frontal sinuses consistent with pansinusitis. Bilateral mastoids are clear. CT/Brain/Head without Contrast IMPRESSION: Normal unenhanced CT scan of the brain. Pansinusitis. Electronically Signed: Shannan Merino MD at 2:27 EDT ,
--- NOTE | 2021-12-18 00:24 | EDS_ITS ---
HPI History of Present Illness Chief Complaint: Overdose Detail of Chief Complaint: Unresponsive Informant: EMS Narrative Narrative: Patient presents via EMS. Persons in the home called EMS for unresponsive individual. On arrival patient had a pulse but was not breathing. An eye gel was placed by EMS. Patient was given Narcan intranasally 2 mg initially followed by 6 mg IV. At 1 point patient lost pulse and had CPR initiated as wel l as epinephrine given IV. Patient has vomited multiple times. Patient unable to give any history but there is history that she used methamphetamines and heroin 3 days ago and has known history of drug abuse. [facility] Medical History Drug use Home Medications hydroxyzine pamoate 50 mg capsule (Vistaril) 50 mg PO TID PRN 04/21/16 [History Last Taken Unknown] paroxetine HCl 10 mg tablet 10 mg PO DAILY 04/21/16 [History Last Taken Unknown] quetiapine 200 mg tablet (Seroquel) 200 mg PO QHS 04/21/16 [History Last Taken Unknown] quetiapine 50 mg tablet (Seroquel) 50 mg PO TID 04/21/16 [History Last Taken Unknown] trazodone 100 mg tablet 100 mg PO QHS 04/22/16 [History Last Taken Unknown] amoxicillin 875 mg-potassium clavulanate 125 mg tablet 875 mg PO Q12H ##14 04/25/16 [Rx Last Taken Unknown] ketorolac 10 mg tablet 10 mg PO Q8H PRN pain ##20 04/25/16 [Rx Last Taken Unkno wn] clindamycin HCl 150 mg capsule 150 mg PO TID #21 caps 09/18/21 [Rx Last Taken Unknown] hydroxyzine pamoate 50 mg capsule (Vistaril) 50 mg PO TID #30 caps 09/18/21 [Rx Last Taken Unknown] aripiprazole 10 mg tablet (Abilify) 10 mg PO DAILY 12/18/21 [History Last Taken Unknown] escitalopram oxalate 10 mg tablet (Lexapro) 10 mg PO DAILY 12/18/21 [History Last Taken Unknown] Allergy/AdvReac Type Severity Reaction Status Date / Time ibuprofen Allergy Hives Verified 09/18/21 10:56 naproxen Allergy Anaphylaxis Verified 09/18/21 10:56 prednisone Allergy Anaphylaxis Verified 09/18/21 10:56 Social History Smoking Status: Current every day smoker tobacco type: cigarettes ROS ROS ED Review of Systems ROS Unobtainable: due to mental status EXAM Physical Exam Narrative Exam Narrative: unresponsive Const Vital Signs: 12/18/21 00:22 12/18/21 00:36 12/18/21 01:07 Temperature 96.7 F L Temperature Source Temporal Pulse Rate 95 97 109 H Respiratory Rate 15 33 H 24 H Respiratory Pattern Blood Pressure 146/112 H 142/95 H Blood Pressure Mean 123 110 Pulse Ox 100 100 100 Oxygen Delivery Method Mechanical Ventilator Mechanical Ventilator Mechanical Ventilator Fraction of Inspired Oxygen (FIO2) 50 12/18/21 01:08 12/18/21 00:22 12/18/21 00:44 Temperature Temperature Source Pulse Rate 100 100 Respiratory Rate 16 Respiratory Pattern Gasping Normal Normal Blood Pressure Blood Pressure Mean Pulse Ox 100 98 Oxygen Delivery Method Fraction of Inspired Oxygen (FIO2) 100 50 12/18/21 01:30 12/18/21 01:37 Temperature 96.7 F L Temperature Source Temporal Pulse Rate 118 H 118 H Respiratory Rate 32 H 32 H Respiratory Pattern Blood Pressure 114/83 H 114/83 H Blood Pressure Mean 93 93 Pulse Ox 100 100 Oxygen Delivery Method Mechanical Ventilator Mechanical Ventilator Fraction of Inspired Oxygen (FIO2) 50 50 Positive well nourished and well developed General Appearance ED: well developed and NAD HEENT Reports TM's clear and moist mucous membranes HEENT Narrative: No evidence of trauma to her head. Patient did have vomit on her face and in her mouth. normocephalic and atraumatic; Negative for trauma or tenderness Tympanic Membrane ED: Yes TM's clear Eyes PERRL and EOMs intact bilaterally General Eye ED: Negative for pale conjunctiva or scleral icterus Neck no lymphadenopathy, supple and no JVD General: Negative for tenderness Chest Wall inspection of chest normal and palpation of chest normal Chest: Negative for tenderness Resp normal respiratory effort and clear to auscultation bilaterally Resp Narrative: Patient being bagged on arrival. Effort and Inspection: Negative for respiratory distress or pain with movement Auscultation: rhonchi; Negative for wheezes or diminished lung sounds Cardio regular rhythm, S1 normal heart sound, S2 normal heart sound and no murmurs Rate: tachycardic Peripheral Pulses: pulses 2+ throughout GI normal to inspection, nondistended, normoactive bowel sounds, soft to palpation, non-tender, non-distended and no masses Back/Spine no CVA tenderness and no thoracic nor lumbar tenderness Extremity normal to inspection General Extremety ED: Negative for edema General Extremity: Negative for edema Neuro No oriented x3, No CN's II-XII intact bilaterally, No no sensory deficits noted and No gait normal Neuro Narrative: Patient obtunded and unresponsive. Sensorium / Orientation: stuporous; Negative for awake, alert, oriented to person, oriented to place or oriented to time Motor Exam: Negative for strength 5/5 throughout or strength abnormal Psych Negative for mental status grossly normal Psych Narrative: Obtunded and unresponsive Skin no rashes or lesions noted and no wounds Skin Narrative: Track cortez on arms MDM MDM MDM Narrative Medical decision making narrative: On arrival patient had the eye gel removed and she was intubated using a 7.5 ET tube. Patient received etomidate 20 mg IV and succinylcholine 100 mg IV. Patient was suctioned as she had vomited and suspect aspirated. Patient had an elevated white count of 15.4. Lactate was elevated at 5. Lab work-up unremarkable. Toxicology screen was positive for amphetamines and MDMA as well as THC. Chest x-ray showed good position of ET tube. No other acute disease process noted. Patient was started on a propofol drip for sedation. Blood gas initially obtained after initial settings on vent with a rate of 12 showed elevated CO2 of 88 therefore I increased her rate to 16. Case discussed with hospitalist will evaluate patient for admission. 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 Lab Data Attestation: I reviewed the patient's lab results. Labs: Laboratory Results - last 24 hr 12/18/21 12/18/21 12/18/21 00:40 00:40 00:40 WBC 15.4 H RBC 4.44 Hgb 14.0 Hct 44.5 MCV 100.2 H MCH 31.5 MCHC 31.5 L RDW Std Deviation 46.9 H RDW Coeff of Monika 12.6 Plt Count 482 H MPV 10.0 Immature Gran % (Auto) 4.700 H Neut % (Auto) 48.6 Lymph % (Auto) 34.9 Newberry % (Auto) 6.9 Eos % (Auto) 4.1 Baso % (Auto) 0.8 Absolute Neuts (auto) 7.5 Absolute Lymphs (auto) 5.38 H Nucleated RBC % 0 Differential Comment SCANNED Sodium 137 Potassium 4.6 Chloride 101 Carbon Dioxide 26.0 Anion Gap 10 BUN 22 H Creatinine 1.33 H Estim Creat Clear Calc 53.04 Est GFR (MDRD) Af Amer 56 L Est GFR (MDRD) Non-Af 46 L BUN/Creatinine Ratio 16.5 Glucose 279 H Lactic Acid Calcium 8.4 L Total Bilirubin 0.40 AST 33 ALT 22 Alkaline Phosphatase 92 Total Creatine Kinase Troponin I High Sens 6 Total Protein 7.5 Albumin 3.7 Globulin 3.8 Albumin/Globulin Ratio 1.0 Triglycerides Urine Opiates Screen Urine Methadone Screen Ur Barbiturates Screen Ur Phencyclidine Scrn Ur Amphetamines Screen MDMA (Ecstasy) Screen U Benzodiazepines Scrn Urine Cocaine Screen U Cannabinoids Screen Ur Drug Screen Comment Ethyl Alcohol < 3.0 12/18/21 12/18/21 12/18/21 00:40 00:40 00:40 WBC RBC Hgb Hct MCV MCH MCHC RDW Std Deviation RDW Coeff of Monika Plt Count MPV Immature Gran % (Auto) Neut % (Auto) Lymph % (Auto) Newberry % (Auto) Eos % (Auto) Baso % (Auto) Absolute Neuts (auto) Absolute Lymphs (auto) Nucleated RBC % Differential Comment Sodium Potassium Chloride Carbon Dioxide Anion Gap BUN Creatinine Estim Creat Clear Calc Est GFR (MDRD) Af Amer Est GFR (MDRD) Non-Af BUN/Creatinine Ratio Glucose Lactic Acid 5.3 H* Calcium Total Bilirubin AST ALT Alkaline Phosphatase Total Creatine Kinase 231 H Troponin I High Sens Total Protein Albumin Globulin Albumin/Globulin Ratio Triglycerides 71 Urine Opiates Screen NEGATIVE Urine Methadone Screen NEGATIVE Ur Barbiturates Screen NEGATIVE Ur Phencyclidine Scrn NEGATIVE Ur Amphetamines Screen POSITIVE H MDMA (Ecstasy) Screen POSITIVE H U Benzodiazepines Scrn NEGATIVE Urine Cocaine Screen NEGATIVE U Cannabinoids Screen POSITIVE H Ur Drug Screen Comment Ethyl Alcohol ABG Data ABG results: ABG 12/18/21 01:03 Specimen Type ART Sample Site L Radial pH 7.05 L* Bicarbonate Actual 24.5 Total CO2 27 Base Excess -6 L O2 Saturation 99 O2 % 50 ABG pCO2 88.7 H* ABG pO2 189 H Aureliano Test Positive Respiration Rate 12 O2 Delivery Device ET Tube Vent Mode AC Tidal Volume 400 POC PEEP 5 Crit Call To/Read Back Yes Radiography Diagnostic Testing: Clinical Impression(s) from Imaging Studies Chest X-Ray 12/18/21 00:22 IMPRESSION: Lines and tubes as described. Recommend advancing the nasogastric tube approximately 7-8 cm. Fullness of central markings encephali distribution, likely secondary to supine projection. Otherwise no acute cardiac pulmonary disease. Electronically Signed: Shannan Merino MD at 1:11 EDT , 1 view chest x-ray obtained interpreted by myself is good position of ET tube above hailee. No other acute disease process noted. EKG Initial EKG: Attestation: I personally reviewed and interpreted this EKG as follows: Comments: Sinus tachycardia with a ventricular rate of 110 bpm Critical Care Time Critical Care Time: Yes Critical care time (excluding procedures): 30-74 minutes, Including time spent:, Discussing w/Patient &/or Family/Bobbin Cleaner, Discussing w/Consultants, Arranging Admission or Transfer, Performing Direct Patient Care at Bedside and - (45 minutes) Discharge Plan Dx/Rx/DC Orders Clinical Impression: Respiratory failure, Illicit drug use, Lactic acidosis, Airway intubation performed without difficulty, Aspiration into airway Disposition Disposition: Acute Care Hospital [facility] Discharge Date/Time: 12/18/21 02:12
[2021-12-18] MEDS: Propofol 10MG/Ml 1,000 MG/100 ML Bottle 4.1 MG CONT INF (00:30)
--- NOTE | 2021-12-18 00:34 | EKG12_ITS ---
Test Reason : ADMISSION EKG Blood Pressure : / mmHG Vent. Rate : 089 BPM Atrial Rate : 089 BPM P-R Int : 142 ms QRS Dur : 094 ms QT Int : 416 ms P-R-T Axes : 083 095 067 degrees QTc Int : 506 ms Normal sinus rhythm Prolonged QT Abnormal ECG When compared with ECG of 18-DEC-2021 01:12, MANUAL COMPARISON REQUIRED, DATA IS UNCONFIRMED Confirmed by PATIENCE ZACARIAS, MARIANN ([id number]), newspaper copy editor ERNESTO GARDNER ([id number]) on 12/18/2021 12:59:39 PM Referred By: DR ARGUETA Confirmed By:MARIANN MORIN MD
[2021-12-18] MEDS: Propofol 200 MG/20 ML Vial 40 MG IV BOLUS (00:38)
[2021-12-18] MEDS: 0.9% Normal Saline 1,000 ML 1000 ML IV (00:39)
[2021-12-18 00:53] LABS: Absolute Lymphocyte Count 5.38 X10^3/uL (0.83-4.51); Absolute Neutrophil Count 7.5 X10^3/uL (2.0-7.7); Basophil# 0.12 X10^3/uL; Basophil% 0.8 % (0-1); Eosinophil# 0.63 X10^3/uL; Eosinophils% 4.1 % (0-5); Hematocrit 44.5 % (37-47); Lymphocyte # 5.38 X10^3/ul (0.83-4.51); Lymphocyte % 34.9 % (19-41); Mean Corp Hgb Conc 31.5 g/dL (32-36); Mean Corpuscular Hgb 31.5 pg (27.0-32.0); Mean Corpuscular Volume 100.2 fL (81-99); Monocyte# 1.06 X10^3/uL; Monocyte% 6.9 % (0-10); NRBC Flagged by Analyzer 0 % (0-5); Neutrophil % 48.6 % (47-70); POSITIVE DIFFERENTIAL YES; POSITIVE MORPHOLOGY YES; Platelet Count 482 K/mm3 (150-450); RBC Distribution Width CV 12.6 % (11.6-14.6); RBC Distribution Width SD 46.9 fl (35.1-43.9); Red Blood Count 4.44 M/mm3 (4.2-5.4); White Blood Count 15.4 K/mm3 (4.4-11.0)
[2021-12-18 00:58] LABS: Differential Indicated SCAN CRITERIA MET
[2021-12-18 01:05] LABS: Alcohol, Blood (Medical)-Serum < 3.0 mg/dL
--- NOTE | 2021-12-18 01:05 | CPS ---
Critical ABG values noted, Dr. Ramos aware.
[2021-12-18 01:11] LABS: Allen Test Positive; Base Excess -6 mmol/L (-2 to +2); Bicarbonate 24.5 mmol/L (22-26); Blood Gas Specimen Type ART; FI02 50; Mode AC; O2 Delivery Device ET Tube; PEEP 5; PO2 189 mmHG (75-100); RR 12; SITE L Radial; SO2 99 % (95-99); Total Carbon Dioxide 27 mmol/L; Vt 400; pCO2 88.7 mmHg (35-45); pH 7.05 (7.35-7.45)
--- NOTE | 2021-12-18 01:12 | EKG12_ITS ---
Test Reason : UNRESPONSIVE Blood Pressure : / mmHG Vent. Rate : 110 BPM Atrial Rate : 110 BPM P-R Int : 138 ms QRS Dur : 082 ms QT Int : 372 ms P-R-T Axes : 081 086 088 degrees QTc Int : 503 ms Sinus tachycardia Otherwise normal ECG Confirmed by LISA ZACARIAS, GUNNAR ([id number]), marketing editor ERNESTO GARDNER ([id number]) on 12/19/2021 1:11:41 PM Referred By: MISHA Confirmed By:GUNNAR GONZALEZ MD
[2021-12-18 01:13] LABS: AST(SGOT) 33 U/L (15-37); Alanine Aminotransfer ALT/SGPT 22 U/L (13-56); Albumin, Serum 3.7 g/dL (3.2-5.0); Alkaline Phosphatase 92 U/L (45-117); Anion Gap 10 (5-15); BUN 22 mg/dL (7-18); BUN/Creat Ratio 16.5 RATIO (10-20); Calcium,Total 8.4 mg/dL (8.5-10.1); Chloride 101 mmol/L (98-107); Creatinine, Serum 1.33 mg/dL (0.55-1.02); EST Glomerular Filtration Rate 46 mL/min (>60); Est Glom Filt Rate - Afr Amer 56 mL/min (>60); Estimated Creatinine Clearance 53.04 ml/min; Globulin 3.8 g/dL (2.2-4.2); Glucose 279 mg/dL (74-106); Potassium 4.6 mmol/L (3.5-5.1); Protein, Total 7.5 g/dL (6.4-8.2); Sodium Level 137 mmol/L (136-145); Troponin-I HS (w/2H Reflex) 6 pg/mL (3.0-54.0)
[2021-12-18] MEDS: 0.9% Normal Saline 1,000 ML 150 ML IV ×4 (01:15→18:25)
--- NOTE | 2021-12-18 01:16 | ED.RN ---
Pt extremely agitated with Diprivan at 20 mcg/mini. Okay to titrate to 30 mcg/min.
[2021-12-18 01:23] LABS: Differential Comment SCANNED
[2021-12-18 01:25] LABS: Amphetamine Urine VISTA POSITIVE (<1000 ng/mL); Barbiturate Urine VISTA NEGATIVE (< 200 ng/mL); Benzodiazepine Urine VISTA NEGATIVE (< 200 ng/mL); Cocaine Urine VISTA NEGATIVE (< 300 ng/mL); Ecstacy Urine VISTA POSITIVE (< 500 ng/mL); Lactic Acid 5.3 mmol/L (0.4-1.9); Methadone Urine VISTA NEGATIVE (< 300 ng/mL); PCP Urine VISTA NEGATIVE (< 25 ng/mL); THC Urine VISTA POSITIVE (< 50 ng/mL); Vista UDS pH Range 5
[2021-12-18 01:40] LABS: CPK Total, Creatine Kinase 231 U/L (26-192); Triglycerides 71 mg/dL
--- NOTE | 2021-12-18 01:48 | ED.RN ---
Report given to ICU.
--- NOTE | 2021-12-18 02:40 | HP.PCM.HOS_ITS ---
HPI - General General Date of Admission: 12/18/21 Date of Service: 12/18/21 Chief Complaint: unresponsive. HPI Narrative ELDON BONDS, is a 41 F who presents being found unresponsive. Patient was found unresponsive by bystanders. EMS was called. It was noted the patient was apneic and cyanotic and had emesis coming from her mouth. She was suctioned by EMS and started bag mask ventilations and received one-time dose of intranasal Narcan. Patient was not found to be pulseless at that time. Subsequently, however, patient became pulseless and CPR was initiated. Patient was found to be in PEA. An oral airway was placed with copious amounts of vomit. Patient was given epinephrine and Narcan via IV. She received 2 additional doses of Narcan and 1 more dose of epinephrine. Patient developed ROSC and was sent to [facility]. In the emergency room, patient had endotracheal tube and OG tube placed. She was started on Pipracil/tazobactam for the aspiration and propofol for sedation. Head CT showed no acute process. Drug screen showed amphetamines, MDMA and cannabinoids. Alcohol level was less than 3. ABGShowed pH of 7.05, PCO2 of 80.7 and PO2 of 189. PFSH Medical History Drug use unable to obtain Home Medications hydroxyzine pamoate 50 mg capsule (Vistaril) 50 mg PO TID PRN 04/21/16 [History Last Taken Unknown] paroxetine HCl 10 mg tablet 10 mg PO DAILY 04/21/16 [History Last Taken Unknown] quetiapine 200 mg tablet (Seroquel) 200 mg PO QHS 04/21/16 [History Last Taken Unknown] quetiapine 50 mg tablet (Seroquel) 50 mg PO TID 04/21/16 [History Last Taken Unknown] trazodone 100 mg tablet 100 mg PO QHS 04/22/16 [History Last Taken Unknown] amoxicillin 875 mg-potassium clavulanate 125 mg tablet 875 mg PO Q12H ##14 04/25/16 [Rx Last Taken Unknown] ketorolac 10 mg tablet 10 mg PO Q8H PRN pain ##20 04/25/16 [Rx Last Taken Unknown] clindamycin HCl 150 mg capsule 150 mg PO TID #21 caps 09/18/21 [Rx Last Taken Unknown] hydroxyzine pamoate 50 mg capsule (Vistaril) 50 mg PO TID #30 caps 09/18/21 [Rx Last Taken Unknown] aripiprazole 10 mg tablet (Abilify) 10 mg PO DAILY 12/18/21 [History Last Taken Unknown] escitalopram oxalate 10 mg tablet (Lexapro) 10 mg PO DAILY 12/18/21 [History Last Taken Unknown] Allergy/AdvReac Type Severity Reaction Status Date / Time ibuprofen Allergy Hives Verified 09/18/21 10:56 naproxen Allergy Anaphylaxis Verified 09/18/21 10:56 prednisone Allergy Anaphylaxis Verified 09/18/21 10:56 unable to obtain unable to obtain Social History Smoking Status: Current every day smoker tobacco type: cigarettes ROS Review of Systems ROS Unobtainable: due to endotracheal tube Vital Signs Vital Signs Vital Signs: 12/18/21 00:22 12/18/21 00:36 12/18/21 01:07 Temperature 35.9 C L Temperature Source Temporal Pulse Rate 95 97 109 H Respiratory Rate 15 33 H 24 H Respiratory Pattern Blood Pressure 146/112 H 142/95 H Blood Pressure Mean 123 110 Pulse Ox 100 100 100 Oxygen Delivery Method Mechanical Ventilator Mechanical Ventilator Mechanical Ventilator Fraction of Inspired Oxygen (FIO2) 50 12/18/21 01:08 12/18/21 00:22 12/18/21 00:44 Temperature Temperature Source Pulse Rate 100 100 Respiratory Rate 16 Respiratory Pattern Gasping Normal Normal Blood Pressure Blood Pressure Mean Pulse Ox 100 98 Oxygen Delivery Method Fraction of Inspired Oxygen (FIO2) 100 50 12/18/21 01:30 12/18/21 01:37 12/18/21 02:20 Temperature 35.9 C L Temperature Source Temporal Pulse Rate 118 H 118 H 104 H Respiratory Rate 32 H 32 H 26 H Respiratory Pattern Normal Blood Pressure 114/83 H 114/83 H Blood Pressure Mean 93 93 Pulse Ox 100 100 95 Oxygen Delivery Method Mechanical Ventilator Mechanical Ventilator Fraction of Inspired Oxygen (FIO2) 50 50 50 Weight Weight: 63.6 kg Body Mass Index (BMI) 22.0 Physical Exam Const Constitutional Narrative: Intubated and sedated. Thin appearance. HEENT normocephalic HEENT Narrative: ET tube and OG tube in place Neck no lymphadenopathy Resp Resp Narrative: Coarse breath sounds bilaterally Cardio regular rate and regular rhythm GI normal to inspection, nondistended, normoactive bowel sounds, soft to palpation and non-tender Auscultation: hypoactive bowel sounds Extremity normal to inspection Skin Skin Narrative: No rashes or sores Neuro moves all extremities Results Lab / Micro Data Attestation: I reviewed the patient's lab results. Result Diagrams: 12/18/21 00:40 12/18/21 00:40 Labs: Laboratory Results - last 24 hr 12/18/21 00:40: WBC 15.4 H, RBC 4.44, Hgb 14.0, Hct 44.5, MCV 100.2 H, MCH 31.5, MCHC 31.5 L, RDW Std Deviation 46.9 H, RDW Coeff of Monika 12.6, Plt Count 482 H, MPV 10.0, Immature Gran % (Auto) 4.700 H, Neut % (Auto) 48.6, Lymph % (Auto) 34.9, Kleberg % (Auto) 6.9, Eos % (Auto) 4.1, Baso % (Auto) 0.8, Absolute Neuts (au to) 7.5, Absolute Lymphs (auto) 5.38 H, Nucleated RBC % 0, Differential Comment SCANNED 12/18/21 00:40: Sodium 137, Potassium 4.6, Chloride 101, Carbon Dioxide 26.0, Anion Gap 10, BUN 22 H, Creatinine 1.33 H, Estim Creat Clear Calc 53.04, Est GFR (MDRD) Af Amer 56 L, Est GFR (MDRD) Non-Af 46 L, BUN/Creatinine Ratio 16.5, Glucose 279 H, Calcium 8.4 L, Total Bilirubin 0.40, AST 33, ALT 22, Alkaline Phosphatase 92, Troponin I High Sens 6, Total Protein 7.5, Albumin 3.7, Globulin 3.8, Albumin/Globulin Ratio 1.0 12/18/21 00:40: Ethyl Alcohol < 3.0 12/18/21 00:40: Lactic Acid 5.3 H* 12/18/21 00:40: Urine Opiates Screen NEGATIVE, Urine Methadone Screen NEGATIVE, Ur Barbiturates Screen NEGATIVE, Ur Phencyclidine Scrn NEGATIVE, Ur Amphetamines Screen POSITIVE H, MDMA (Ecstasy) Screen POSITIVE H, U Benzodiazepines Scrn NEGATIVE, Urine Cocaine Screen NEGATIVE, U Cannabinoids Screen POSITIVE H, Ur Drug Screen Comment 12/18/21 00:40: Total Creatine Kinase 231 H, Triglycerides 71 Micro: Microbiology 12/18/21 00:45 Nasal Secretion SARS-CoV-2 Antigen (Rapid) - Final ABG Data ABG results: ABG 12/18/21 01:03 Specimen Type ART Sample Site L Radial pH 7.05 L* Bicarbonate Actual 24.5 Total CO2 27 Base Excess -6 L O2 Saturation 99 O2 % 50 ABG pCO2 88.7 H* ABG pO2 189 H Aureliano Test Positive Respiration Rate 12 O2 Delivery Device ET Tube Vent Mode AC Tidal Volume 400 POC PEEP 5 Crit Call To/Read Back Yes Radiology Impression Brain CT 12/18/21 00:22 IMPRESSION: Normal unenhanced CT scan of the brain. Pansinusitis. Electronically Signed: Shannan Merino MD at 2:27 EDT , Chest X-Ray 12/18/21 00:22 IMPRESSION: Lines and tubes as described. Recommend advancing the nasogastric tube approximately 7-8 cm. Fullness of central markings encephali distribution, likely secondary to supine projection. Otherwise no acute cardiac pulmonary disease. Electronically Signed: Shannan Merino MD at 1:11 EDT , Assessment & Plan Assessment/Plan (1) Respiratory failure: PLAN: Likely secondary to overdose but also complicated by aspiration Continue with mechanical ventilator Consult CCM for vent management (2) Drug overdose: PLAN: Patient did not really respond to the Narcan but concerning that patient may have used opiates, possibly synthetic. It is unclear how long the patient was unresponsive before EMS arrived. No evidence of cerebral edema on CAT scan. If patient fails to demonstrate any significant recovery that may be worthwhile repeating CT imaging. (3) Cardiopulmonary arrest: PLAN: Patient had a pulse when EMS initially arrived and lost it and then was in PEA. Patient received 2 rounds of epinephrine most likely secondary to hypoxia from overdose and aspiration Rule out other causes with magnesium. Check D-dimer and if elevated check CTA of the chest to evaluate for pulmonary embolism (4) Aspiration into lower respiratory tract: PLAN: Patient received piperacillin/tazobactam in the ED. Will continue with Unasyn Pulmonary toilet (5) Respiratory acidosis: PLAN: Secondary to overdose and aspiration Recheck ABG PLAN: Plan VTE prophylaxis with [facility] Charges/Coding Visit Charges Inpatient E&M: 11978 Init Hosp L3
[2021-12-18 02:47] LABS: Reflex Troponin-HS? (from REC) Y
[2021-12-18] MEDS: 0.9% Normal Saline 1,000 ML 999 ML IV (03:00)
[2021-12-18] MEDS: Propofol 10MG/Ml 1,000 MG/100 ML Bottle 18.3 MG CONT INF (03:07)
[2021-12-18 03:14] LABS: Absolute Lymphocyte Count 0.95 X10^3/uL (0.83-4.51); Absolute Neutrophil Count 7.5 X10^3/uL (2.0-7.7); Basophil# 0.04 X10^3/uL; Basophil% 0.5 % (0-1); Eosinophil# 0.06 X10^3/uL; Eosinophils% 0.7 % (0-5); Hematocrit 40.8 % (37-47); Lymphocyte # 0.95 X10^3/ul (0.83-4.51); Lymphocyte % 10.7 % (19-41); Mean Corp Hgb Conc 31.9 g/dL (32-36); Mean Corpuscular Volume 97.4 fL (81-99); Mean Platelet Vol. 9.7 fl (6.2-12.0); Monocyte# 0.24 X10^3/uL; Monocyte% 2.7 % (0-10); NRBC Flagged by Analyzer 0 % (0-5); Neutrophil # 7.49 X10^3/uL (2.7-7.7); Neutrophil % 84.5 % (47-70); Platelet Count 407 K/mm3 (150-450); RBC Distribution Width CV 12.7 % (11.6-14.6); RBC Distribution Width SD 45.4 fl (35.1-43.9); Red Blood Count 4.19 M/mm3 (4.2-5.4); White Blood Count 8.9 K/mm3 (4.4-11.0)
[2021-12-18 03:29] LABS: D-Dimer Quantitative (DVT/PE) 1.06 FEU/ug/m (0.27-0.49)
[2021-12-18 03:31] LABS: ALB/GLOB Ratio 0.9 RATIO (0.9-2.4); AST(SGOT) 39 U/L (15-37); Alanine Aminotransfer ALT/SGPT 22 U/L (13-56); Albumin, Serum 3.1 g/dL (3.2-5.0); Alkaline Phosphatase 74 U/L (45-117); Anion Gap 6 (5-15); BUN 22 mg/dL (7-18); BUN/Creat Ratio 21.4 RATIO (10-20); Calcium,Total 7.9 mg/dL (8.5-10.1); Chloride 106 mmol/L (98-107); Creatinine, Serum 1.03 mg/dL (0.55-1.02); EST Glomerular Filtration Rate 62 mL/min (>60); Est Glom Filt Rate - Afr Amer 75 mL/min (>60); Estimated Creatinine Clearance 65.93 ml/min; Globulin 3.5 g/dL (2.2-4.2); Glucose 99 mg/dL (74-106); Potassium 3.9 mmol/L (3.5-5.1); Protein, Total 6.6 g/dL (6.4-8.2); Sodium Level 140 mmol/L (136-145)
[2021-12-18 03:40] LABS: Troponin-I HS 44 pg/mL (3.0-54.0)
[2021-12-18 03:55] LABS: Internal QC Validated? YES +Cl - CLEAR BKGD; Pregnancy, Serum, hCG Quali. NEGATIVE Negative
[2021-12-18 04:47] LABS: Reflex Lactate? Y
[2021-12-18 05:01] LABS: Allen Test Positive; Base Excess -4 mmol/L (-2 to +2); Bicarbonate 22.3 mmol/L (22-26); Blood Gas Specimen Type ART; FI02 40; Mode AC; O2 Delivery Device Adult Vent; PEEP 5; PO2 59 mmHG (75-100); RR 16; SITE L Radial; SO2 88 % (95-99); Total Carbon Dioxide 24 mmol/L; Vt 400; pCO2 42.4 mmHg (35-45); pH 7.33 (7.35-7.45)
--- NOTE | 2021-12-18 06:12 | CON.PCM.CC_ITS ---
Assessment & Plan Assessment/Plan (1) Aspiration into lower respiratory tract: PLAN: Plan RECOMMENDATIONS: 1. Continue assist-control mode of mechanical ventilation. 2. Continue empiric antimicrobials. 3. Minimize sedation to better assess underlying neurological status. 4. Discontinue supplemental IV fluids and initiate tube feed nutritional support. 5. Continue appropriate DVT and GI prophylaxis. 6. Obtain echocardiogram. IMPRESSIONS: 1. Acute combined respiratory failure secondary to illicit drug overdose The patient was found unresponsive in the setting of a history of polysubstance abuse with concern for acute overdose. She did experience a PEA cardiac arrest event with successful ROSC. At the present time, plan to continue invasive mechanical ventilatory support. Continue to wean FiO2 and PEEP to maintain oxygen saturations at or above 90%. Continue empiric antimicrobials to cover for aspiration. Tube feeds can be initiated today from my perspective. I would recommend that we hold all sedation today in an attempt to better characterize the patient's baseline mental status. 2. Encephalopathy Initially felt to be the consequence of overdose. In order to better assess the patient's baseline neurological status, recommend holding all sedating medications temporarily for now. 3. Status post PEA cardiac arrest The patient's cardiac arrest was likely precipitated by hypoxia in the setting of #1. We will plan to check an echocardiogram. 4. Acute kidney injury Likely prerenal in etiology in the setting of #1 and 3. Continue supportive measures as noted above. Continue to monitor urine output. No current in dication for renal replacement therapy. 5. History of polysubstance abuse Complicates care, management, recovery and prognosis. Continue supportive measures as noted above. Okay to initiate tube feeds today. TIME: 37 minutes of critical care time, independent of procedures, was spent addressing the patient's acute combined respiratory failure, illicit drug overdose, encephalopathy, status post PEA cardiac arrest, acute kidney injury, review of all data and collaboration with the care team. HPI Consult Data Date of Consult: 12/18/21 HPI Narrative Reason for Consultation: Acute respiratory failure HPI Narrative: The patient is a 41-year-old female, with a history as outlined below, who presented to the emergency department on December 18 via EMS after being found unresponsive in the setting of a possible drug overdose. According to EMS documentation, the patient was found covered in vomit. During their initial evaluation of the patient, she was found to be pulseless. Therefore, ACLS was initiated. She was administered epinephrine and Narcan due to PEA cardiac arrest. ROSC was eventually achieved in the field. According to documentation, the patient has a history of polysubstance abuse. On presentation to the emergency department, the patient was noted to be afebrile hemodynamically stable. Initial laboratory evaluation revealed a white blood cell count of 15,000. Platelet count was elevated at 482,000. D-dimer was elevated at 1.06. Chemistry profile was notable for a creatinine of 1.3. Lactate was elevated at 5.3. Toxicology screen was positive for amphetamines, MDMA and cannabinoids. An endotracheal tube was ultimately placed in the emergency department. Initial arterial blood gas demonstrated a pH of 7.05 with a PCO2 of 88 and PO2 of 189. Blood and sputum cultures were collected. The patient was initiated on antimicrobials. She was subsequently admitted to the medical intensive care unit for further management. FORMERLY [facility], [facility] Medical History Drug use Medical History unable to obtain Home Medications hydroxyzine pamoate 50 mg capsule (Vistaril) 50 mg PO TID PRN 04/21/16 [History Last Taken Unknown] paroxetine HCl 10 mg tablet 10 mg PO DAILY 04/21/16 [History Last Taken Unknown] quetiapine 200 mg tablet (Seroquel) 200 mg PO QHS 04/21/16 [History Last Taken Unknown] quetiapine 50 mg tablet (Seroquel) 50 mg PO TID 04/21/16 [History Last Taken Unknown] trazodone 100 mg tablet 100 mg PO QHS 04/22/16 [History Last Taken Unknown] amoxicillin 875 mg-potassium clavulanate 125 mg tablet 875 mg PO Q12H ##14 04/25/16 [Rx Last Taken Unknown] ketorolac 10 mg tablet 10 mg PO Q8H PRN pain ##20 04/25/16 [Rx Last Taken Unknown] clindamycin HCl 150 mg capsule 150 mg PO TID #21 caps 09/18/21 [Rx Last Taken Unknown] hydroxyzine pamoate 50 mg capsule (Vistaril) 50 mg PO TID #30 caps 09/18/21 [Rx Last Taken Unknown] aripiprazole 10 mg tablet (Abilify) 10 mg PO DAILY 12/18/21 [History Last Taken Unknown] escitalopram oxalate 10 mg tablet (Lexapro) 10 mg PO DAILY 12/18/21 [History Last Taken Unknown] Allergy/AdvReac Type Severity Reaction Status Date / Time ibuprofen Allergy Hives Verified 09/18/21 10:56 naproxen Allergy Anaphylaxis Verified 09/18/21 10:56 prednisone Allergy Anaphylaxis Verified 09/18/21 10:56 Family History unable to obtain Surgical History unable to obtain Social History Smoking Status: Current every day smoker tobacco type: cigarettes ROS Review of Systems ROS Unobtainable: due to endotracheal tube Physical Exam Const General Appearance: intubated and patient mechanically ventilated HEENT normocephalic and head/scalp atraumatic Mouth: endotracheal tube in place and OG tube in place Eyes PERRL and conjunctivae normal Neck supple General: trachea midline Chest inspection of chest normal Resp Auscultation: wheezes and diminished lung sounds Cardio regular rate and regular rhythm GI normal to inspection, nondistended, normoactive bowel sounds Extremity no clubbing, cyanosis or edema Skin no rashes or lesions noted Neuro Sensorium / Orientation: sedated on vent Lab / Micro Data Result Diagrams: 12/18/21 03:00 12/18/21 03:00 Labs: Laboratory Results - last 24 hr 12/18/21 00:40: WBC 15.4 H, RBC 4.44, Hgb 14.0, Hct 44.5, MCV 100.2 H, MCH 31.5, MCHC 31.5 L, RDW Std Deviation 46.9 H, RDW Coeff of Monika 12.6, Plt Count 482 H, MPV 10.0, Immature Gran % (Auto) 4.700 H, Neut % (Auto) 48.6, Lymph % (Auto) 34.9, Leslie % (Auto) 6.9, Eos % (Auto) 4.1, Baso % (Auto) 0.8, Absolute Neuts (auto) 7.5, Absolute Lymphs (auto) 5.38 H, Nucleated RBC % 0, Differential Comment SCANNED 12/18/21 00:40: Sodium 137, Potassium 4.6, Chloride 101, Carbon Dioxide 26.0, Anion Gap 10, BUN 22 H, Creatinine 1.33 H, Estim Creat Clear Calc 53.04, Est GFR (MDRD) Af Amer 56 L, Est GFR (MDRD) Non-Af 46 L, BUN/Creatinine Ratio 16.5, Glucose 279 H, Calcium 8.4 L, Total Bilirubin 0.40, AST 33, ALT 22, Alkaline Phosphatase 92, Troponin I High Sens 6, Total Protein 7.5, Albumin 3.7, Globulin 3.8, Albumin/Globulin Ratio 1.0 12/18/21 00:40: Ethyl Alcohol < 3.0 12/18/21 00:40: Lactic Acid 5.3 H* 12/18/21 00:40: Urine Opiates Screen NEGATIVE, Urine Methadone Screen NEGATIVE, Ur Barbiturates Screen NEGATIVE, Ur Phencyclidine Scrn NEGATIVE, Ur Amphetamines Screen POSITIVE H, MDMA (Ecstasy) Screen POSITIVE H, U Benzodiazepines Scrn NEGATIVE, Urine Cocaine Screen NEGATIVE, U Cannabinoids Screen POSITIVE H, Ur Drug Screen Comment 12/18/21 00:40: Total Creatine Kinase 231 H, Triglycerides 71 12/18/21 03:00: Magnesium 2.0, Troponin I High Sens 44 12/18/21 03:00: D-Dimer Quant (PE/DVT) 1.06 H* 12/18/21 03:00: Serum , Qual NEGATIVE 12/18/21 03:00: WBC 8.9, RBC 4.19 L, Hgb 13.0, Hct 40.8, MCV 97.4, MCH 31.0, MCHC 31.9 L, RDW Std Deviation 45.4 H, RDW Coeff of Monika 12.7, Plt Count 407, MPV 9.7, Immature Gran % (Auto) 0.900, Neut % (Auto) 84.5 H, Lymph % (Auto) 10.7 L, Leslie % (Auto) 2.7, Eos % (Auto) 0.7, Baso % (Auto) 0.5, Absolute Neuts (auto) 7.5, Absolute Lymphs (auto) 0.95, Nucleated RBC % 0 12/18/21 03:00: Sodium 140, Potassium 3.9, Chloride 106, Carbon Dioxide 28.0, Anion Gap 6, BUN 22 H, Creatinine 1.03 H, Estim Creat Clear Calc 65.93, Est GFR (MDRD) Af Amer 75, Est GFR (MDRD) Non-Af 62, BUN/Creatinine Ratio 21.4 H, Glucose 99, Calcium 7.9 L, Total Bilirubin 0.40, AST 39 H, ALT 22, Alkaline Phosphatase 74, Total Protein 6.6, Albumin 3.1 L, Globulin 3.5, Albumin/Globulin Ratio 0.9 Micro: Microbiology 12/18/21 00:45 Nasal Secretion SARS-CoV-2 Antigen (Rapid) - Final ABG Data ABG results: ABG 12/18/21 12/18/21 01:03 04:56 Specimen Type ART ART Sample Site L Radial L Radial pH 7.05 L* 7.33 L Bicarbonate Actual 24.5 22.3 Total CO2 27 24 Base Excess -6 L -4 L O2 Saturation 99 88 L O2 % 50 40 ABG pCO2 88.7 H* 42.4 ABG pO2 189 H 59 L Aureliano Test Positive Positive Respiration Rate 12 16 O2 Delivery Device ET Tube Adult Vent Vent Mode AC AC Tidal Volume 400 400 POC PEEP 5 5 Crit Call To/Read Back Yes Radiology Impression Brain CT 12/18/21 00:22 IMPRESSION: Normal unenhanced CT scan of the brain. Pansinusitis. Electronically Signed: Shannan Merino MD at 2:27 EDT Reading Location ID and State: [id number] / [place] , Service support , Chest X-Ray 12/18/21 00:22 IMPRESSION: Lines and tubes as described. Recommend advancing the nasogastric tube approximately 7-8 cm. Fullness of central markings encephali distribution, likely secondary to supine projection. Otherwise no acute cardiac pulmonary disease. Electronically Signed: Shannan Merino MD at 1:11 EDT , Charges/Coding Procedures Hospitalists Procedures: [id number] Critial Care 1st Hr
[2021-12-18 06:15] LABS: Lactic Acid 1.8 mmol/L (0.4-1.9)
[2021-12-18] MEDS: Ipratropium/Albuterol Sulfate 3 ML AMPUL.NEB INHALATION ×5 (07:05→23:16)
--- NOTE | 2021-12-18 07:22 | PCM.PN.HOSP ---
Subjective Subjective Patient is a 41-year-old lady with history of polysubstance dependence who was found unresponsive by the boyfriend. CPR was apparently started on the field prior to EMS arriving. Patient apparently aspirated was being resuscitated. Patient was intubated and subsequently admitted to the intensive care unit for further management Objective Data Objective Data Vital Signs: Vital Signs Temp Pulse Resp BP Pulse Ox O2 Del Method FiO2 98.9 F 94 16 99/73 99 Mechanical Ventilator 30 12/18/21 07:00 12/18/21 07:20 12/18/21 07:06 12/18/21 07:00 12/18/21 07:06 12/18/21 07:00 12/18/21 07:06 Oxygen Delivery Method Mechanical Ventilator Weight: 63.6 kg Body Mass Index (BMI) 22.0 Intake & Output: Intake and Output for Last 24 Hours 12/16/21 12/17/21 12/18/21 23:59 23:59 23:59 Intake Total 2680.34 / 2680.34 Output Total 310 / 310 Balance 2370.34 / 2370.34 Lab / Micro Data Result Diagrams: 12/18/21 03:00 12/18/21 03:00 Labs: Laboratory Results - last 24 hr 12/18/21 00:40: WBC 15.4 H, RBC 4.44, Hgb 14.0, Hct 44.5, MCV 100.2 H, MCH 31.5, MCHC 31.5 L, RDW Std Deviation 46.9 H, RDW Coeff of Monika 12.6, Plt Count 482 H, MPV 10.0, Immature Gran % (Auto) 4.700 H, Neut % (Auto) 48.6, Lymph % (Auto) 34.9, [place] % (Auto) 6.9, Eos % (Auto) 4.1, Baso % (Auto) 0.8, Absolute Neuts (auto) 7.5, Absolute Lymphs (auto) 5.38 H, Nucleated RBC % 0, Differential Comment SCANNED 12/18/21 00:40: Sodium 137, Potassium 4.6, Chloride 101, Carbon Dioxide 26.0, Anion Gap 10, BUN 22 H, Creatinine 1.33 H, Estim Creat Clear Calc 53.04, Est GFR (MDRD) Af Amer 56 L, Est GFR (MDRD) Non-Af 46 L, BUN/Creatinine Ratio 16.5, Glucose 279 H, Calcium 8.4 L, Total Bilirubin 0.40, AST 33, ALT 22, Alkaline Phosphatase 92, Troponin I High Sens 6, Total Protein 7.5, Albumin 3.7, Globulin 3.8, Albumin/Globulin Ratio 1.0 12/18/21 00:40: Ethyl Alcohol < 3.0 12/18/21 00:40: Lactic Acid 5.3 H* 12/18/21 00:40: Urine Opiates Screen NEGATIVE, Urine Methadone Screen NEGATIVE, Ur Barbiturates Screen NEGATIVE, Ur Phencyclidine Scrn NEGATIVE, Ur Amphetamines Screen POSITIVE H, MDMA (Ecstasy) Screen POSITIVE H, U Benzodiazepines Scrn NEGATIVE, Urine Cocaine Screen NEGATIVE, U Cannabinoids Screen POSITIVE H, Ur Drug Screen Comment 12/18/21 00:40: Total Creatine Kinase 231 H, Triglycerides 71 12/18/21 03:00: Magnesium 2.0, Troponin I High Sens 44 12/18/21 03:00: D-Dimer Quant (PE/DVT) 1.06 H* 12/18/21 03:00: Serum , Qual NEGATIVE 12/18/21 03:00: WBC 8.9, RBC 4.19 L, Hgb 13.0, Hct 40.8, MCV 97.4, MCH 31.0, MCHC 31.9 L, RDW Std Deviation 45.4 H, RDW Coeff of Monika 12.7, Plt Count 407, MPV 9.7, Immature Gran % (Auto) 0.900, Neut % (Auto) 84.5 H, Lymph % (Auto) 10.7 L, [place] % (Auto) 2.7, Eos % (Auto) 0.7, Baso % (Auto) 0.5, Absolute Neuts (auto) 7.5, Absolute Lymphs (auto) 0.95, Nucleated RBC % 0 12/18/21 03:00: Sodium 140, Potassium 3.9, Chloride 106, Carbon Dioxide 28.0, Anion Gap 6, BUN 22 H, Creatinine 1.03 H, Estim Creat Clear Calc 65.93, Est GFR (MDRD) Af Amer 75, Est GFR (MDRD) Non-Af 62, BUN/Creatinine Ratio 21.4 H, Glucose 99, Calcium 7.9 L, Total Bilirubin 0.40, AST 39 H, ALT 22, Alkaline Phosphatase 74, Total Protein 6.6, Albumin 3.1 L, Globulin 3.5, Albumin/Globulin Ratio 0.9 12/18/21 05:20: Lactic Acid 1.8 Micro: Microbiology 12/18/21 00:45 Nasal Secretion SARS-CoV-2 Antigen (Rapid) - Final ABG Data ABG results: ABG 12/18/21 12/18/21 01:03 04:56 Specimen Type ART ART Sample Site L Radial L Radial pH 7.05 L* 7.33 L Bicarbonate Actual 24.5 22.3 Total CO2 27 24 Base Excess -6 L -4 L O2 Saturation 99 88 L O2 % 50 40 ABG pCO2 88.7 H* 42.4 ABG pO2 189 H 59 L Aureliano Test Positive Positive Respiration Rate 12 16 O2 Delivery Device ET Tube Adult Vent Vent Mode AC AC Tidal Volume 400 400 POC PEEP 5 5 Crit Call To/Read Back Yes Radiography Diagnostic Testing: Radiology Impression Brain CT 12/18/21 00:22 IMPRESSION: Normal unenhanced CT scan of the brain. Pansinusitis. Electronically Signed: Shannan Merino MD at 2:27 EDT Reading Location ID and State: [id number] / [employer] , Service support , Chest X-Ray 12/18/21 00:22 IMPRESSION: Lines and tubes as described. Recommend advancing the nasogastric tube approximately 7-8 cm. Fullness of central markings encephali distribution, likely secondary to supine projection. Otherwise no acute cardiac pulmonary disease. Electronically Signed: Shannan Merino MD at 1:11 EDT , Physical Exam Narrative GENERAL: Dated on the vent HEENT: Atraumatic; normocephalic EYES; Anicteric, Normal Conjunctiva NECK; supple, normal thyroid, RESPIRATORY: Diminished to auscultation CARDIOVASCULAR: Regular S1 S2, GI: soft, normoactive bowel sounds, : No Renal angle tenderness; EXTREMITIES: No edema, no clubbing, MUSCULOSKELETAL: no muscle wasting NEURO: Sedated on the vent SKIN: Tattoos lower extremities Assessment & Plan Assessment/Plan (1) Respiratory acidosis: (2) Aspiration into lower respiratory tract: (3) Cardiopulmonary arrest: (4) Respiratory failure: (5) Illicit drug use: (6) Lactic acidosis: (7) Airway intubation performed without difficulty: (8) Aspiration into airway: (9) Cellulitis of leg, left: (10) Drug overdose: PLAN: Plan Patient is a 41-year-old lady with history of polysubstance dependence who was found unresponsive by the boyfriend. CPR was apparently started on the field prior to EMS arriving. Patient apparently aspirated was being resuscitated. Patient was intubated and subsequently admitted to the intensive care unit for further management 1. Acute hypoxic respiratory failure ? Secondary to drug overdose complicated by aspiration pneumonia. Patient was placed on the vent admitted to the intensive care unit consult placed to pulmonary/critical care for vent management 2. Cardiopulmonary arrest ? Patient was successfully resuscitated using ACLS 3. Drug overdose ? Drug screen in the ED showed amphetamines, MDMA and cannabinoids. 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 Aspiration pneumonia ? Patient started on Zosyn 5. Elevated D-dimer ? Possibly related to above however ordered bilateral venous duplex as well as CTA to rule out VTE 6. DVT prophylaxis ? Patient is on enoxaparin Due to time spent evaluating patient review of labs subsequent adjustment of therapy and discussion with other providers and nursing staff involved in patient's care; 45-minute Charges/Coding Procedures Hospitalists Procedures: [id number] Prolonged InPt Service; first hour
[2021-12-18] MEDS: Chlorhexidine 15 ML PO ×2 (07:50→21:20)
[2021-12-18] MEDS: Enoxaparin 40 MG/0.4 ML Syringe SC (07:54)
[2021-12-18] MEDS: Famotidine 20 MG Tablet GT (07:56)
--- NOTE | 2021-12-18 08:04 | VDLE_ITS ---
Reason For Study: Elevated D-dimer RIGHT LEFT GSV is normal. GSV is normal. CFV is compressible, spontaneous, phasic, CFV is compressible, spontaneous, phasic, competent and demonstrates normal competent, and demonstrates normal augmentation. augmentation. FV is compressible, spontaneous, phasic, FV is compressible, spontaneous, phasic, competent and demonstrates normal competent and demonstrates normal augmentation. augmentation. POP V is compressible, spontaneous, phasic, POP V is compressible, spontaneous, phasic, competent and demonstrates normal competent and demonstrates normal augmentation. augmentation. T/P Trunk is compressible. T/P Trunk is compressible. PTV is compressible. PTV is compressible. RT PerV is compressible. LT PerV is compressible. Procedure This is a venous duplex using B-mode, color flow and spectral Doppler. Exam performed portable in ICU/CCU. A preliminary report was called and/or faxed to ICU. VL/Venous Duplex US - Dk Extrem Interpretation Summary No evidence for acute deep venous thrombosis bilateral lower extremities with p atent and compressible bilateral great saphenous veins. Ordering Physician: Michele Pettit Performed By: Dannielle Houser RVT
--- NOTE | 2021-12-18 08:04 | CT_ITS ---
STUDY: CTA CHEST REASON FOR EXAM: Female, 41 years old. Elevated d dimer. Drug overdose. RADIATION DOSAGE (If Supplied By Facility): CTDIvol = ( 14.25 ) mGy, DLP = ( 410.93 ) mGycm TECHNIQUE: The examination was performed with the intravenous administration of IV 100mL Isovue-370. Post-processing of the angiographic images was performed, with multiplanar reformation and 3D reconstruction. Individualized dose optimization techniques were used for this CT. COMPARISON: None. FINDINGS: Endotracheal tube is seen. Nasogastric tube is seen with the tip in the stomach. Normal enhancement of the main pulmonary artery and right and left pulmonary arteries. Normal enhancement of the bilateral peripheral pulmonary arteries. There is no demonstrated pulmonary embolism. Normal thoracic aorta and visualized great vessels. There is no demonstrated aortic dissection. Normal heart and pericardium. Normal mediastinum. Normal hilar regions. Normal visualized trachea and bronchi. The lungs are well expanded. Pneumonic infiltration in the left upper lobe. Patchy infiltrates at both lung bases slightly worse on the left side. Patchy infiltrate also seen in the right middle lobe as well as in the lingular segment of the left upper lobe. Normal pleura. Normal chest wall structures. Normal osseous structures. Normal visualized upper abdomen. CT/CTA Chest W/WO Contrast IMPRESSION: Left upper lobe consolidation. Patchy infiltrates in both lower lobes as well as in the right upper lobe and lingular segment of the left upper lobe. Electronically Signed: Lee Muir MD at 9:42 EDT ,
--- NOTE | 2021-12-18 09:54 | ECHOD_ITS ---
Reason For Study: OBERDOSE Procedure This was a 2D Doppler, Color Flow transthoracic echocardiogram. Technically difficult study due to patient being intubated and unresponsive. Exam performed portable in ICU/CCU. Left Ventricle Normal LV size. Left ventricular systolic function is normal. The estimated ejection fraction is 55 %. No regional wall motion abnormalities noted. Right Ventricle Normal RV size. Normal systolic function. Atria Normal left atrium. Normal right atrium. Mitral Valve Normal mitral valve. Tricuspid Valve Normal tricuspid valve. Aortic Valve Normal aortic valve. Pulmonic Valve The pulmonic valve is not well visualized. Great Vessels Normal aortic root. The pulmonary artery is normal size. Normal inferior vena cava. Pericardium/Pleural No pericardial effusion. MMode/2D Measurements & Calculations LVIDd: 3.3 cm IVSd: 0.94 cm Ao root diam: 2.9 cm LVIDs: 2.4 cm LVPWd: 0.94 cm FS: 28.4 % RA A4 area: 9.2 cm2 Doppler Measurements & Calculations MV E max shona: 67.3 cm/sec Ao V2 max: 115.6 cm/sec LV V1 max: 100.2 cm/sec MV A max shona: 81.4 cm/sec Ao max P.4 mmHg LV V1 max P.0 mmHg MV E/A: 0.83 Ao V2 mean: 89.8 cm/sec LV V1 mean P.4 mmHg Ao mean P.5 mmHg LV V1 mean: 72.6 cm/sec Ao V2 VTI: 18.3 cm LV V1 VTI: 17.3 cm PA V2 max: 106.5 cm/sec PA V2 mean: 78.8 cm/sec ECHO/Echo Complete Interpretation Summary Normal LV size. Left ventricular systolic function is normal. The estimated ejection fraction is 55 %. Ordering Physician: Matthew Wagner Referring Physician: KATHIA PCP Performed By: Brandi Fuller RCS
--- NOTE | 2021-12-18 11:35 | CASEMGMT ---
[facility] CM into patient's room to speak with visitor. Patient is currently on ventilator and unable to participate in assessment. Visitor is Sarah Wilkins, girlfriend of patient's son. Sarah is at bedside and able to provide some information regarding patient. Per Sarah, patient has 2 sons, her boyfriend Edgardo Sofia, , and Elliot Sofia. Sarah did not know Elliot's number and was working on getting it from Edgardo but he is currently at work. Sarah states that patient does not follow with PCP. Patient lives in a first floor apartment with 4 steps to enter. Patient is normally independent at home. Patient does smoke about 1PPD of cigarettes and smoke marijuana. 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 Sarah states that patient was recently discharge from [facility] psych unit on 12/06/21. CM will continue to follow this patient and plan for a safe discharge.
[2021-12-18] MEDS: Propofol 10MG/Ml 1,000 MG/100 ML Bottle 14.2 MG CONT INF ×2 (12:20→17:23)
[2021-12-18] MEDS: Vital AF 1.2 Cal Liquid 1,000 ML 15 ML GT (14:13)
[2021-12-18] MEDS: Acetaminophen 650 MG/20 ML UDC NG (15:58)
[2021-12-18] MEDS: Propofol 10MG/Ml 1,000 MG/100 ML Bottle 8.1 MG CONT INF (23:42)
[2021-12-19] VITALS (40 sets, daily range): BP systolic 82–128; BP diastolic 50–82; PULSE 79–140; RESP 14–32; TEMP 37.7–38.6; O2SAT 93–99
[2021-12-19] MEDS: 0.9% Normal Saline 1,000 ML 150 ML IV ×2 (00:42→06:27)
[2021-12-19] MEDS: Acetaminophen 650 MG/20 ML UDC NG ×3 (01:06→17:53)
[2021-12-19 03:07] LABS: Absolute Lymphocyte Count 0.95 X10^3/uL (0.83-4.51); Absolute Neutrophil Count 12.4 X10^3/uL (2.0-7.7); Basophil# 0.07 X10^3/uL; Basophil% 0.5 % (0-1); Eosinophil# 0.06 X10^3/uL; Eosinophils% 0.4 % (0-5); Hematocrit 37.9 % (37-47); Hemoglobin 12.6 g/dL (12.0-15.0); Lymphocyte # 0.95 X10^3/ul (0.83-4.51); Lymphocyte % 6.7 % (19-41); Mean Corp Hgb Conc 33.2 g/dL (32-36); Mean Corpuscular Hgb 31.3 pg (27.0-32.0); Mean Corpuscular Volume 94.3 fL (81-99); Mean Platelet Vol. 9.6 fl (6.2-12.0); Monocyte# 0.64 X10^3/uL; Monocyte% 4.5 % (0-10); NRBC Flagged by Analyzer 0 % (0-5); Neutrophil # 12.37 X10^3/uL (2.7-7.7); Neutrophil % 87.5 % (47-70); POSITIVE MORPHOLOGY YES; Platelet Count 314 K/mm3 (150-450); RBC Distribution Width CV 13.4 % (11.6-14.6); RBC Distribution Width SD 45.7 fl (35.1-43.9); Red Blood Count 4.02 M/mm3 (4.2-5.4); White Blood Count 14.1 K/mm3 (4.4-11.0)
[2021-12-19 03:10] LABS: Differential Indicated SCAN CRITERIA MET
[2021-12-19 03:36] LABS: ALB/GLOB Ratio 0.8 RATIO (0.9-2.4); AST(SGOT) 32 U/L (15-37); Alanine Aminotransfer ALT/SGPT 17 U/L (13-56); Albumin, Serum 2.5 g/dL (3.2-5.0); Alkaline Phosphatase 55 U/L (45-117); Anion Gap 7 (5-15); BUN 17 mg/dL (7-18); BUN/Creat Ratio 26.4 RATIO (10-20); Calcium,Total 7.8 mg/dL (8.5-10.1); Chloride 112 mmol/L (98-107); Creatinine, Serum 0.64 mg/dL (0.55-1.02); EST Glomerular Filtration Rate 107 mL/min (>60); Est Glom Filt Rate - Afr Amer 129 mL/min (>60); Globulin 3.3 g/dL (2.2-4.2); Glucose 134 mg/dL (74-106); Magnesium 1.9 mg/dL (1.6-2.6); Protein, Total 5.8 g/dL (6.4-8.2); Sodium Level 143 mmol/L (136-145)
[2021-12-19] MEDS: Ipratropium/Albuterol Sulfate 3 ML AMPUL.NEB INHALATION ×6 (03:45→22:41)
[2021-12-19] MEDS: Propofol 10MG/Ml 1,000 MG/100 ML Bottle 14.1 MG CONT INF (05:23)
[2021-12-19] MEDS: TITRATION PARAMETER CHANGE 1 EACH IV ×2 (05:55→21:55)
--- NOTE | 2021-12-19 07:26 | PCM.PN.HOSP ---
Subjective Subjective Patient seen remains sedated on the vent. Apparently failed her weaning trial. Patient had low-grade fever was given Tylenol without much effect Objective Data Objective Data Vital Signs: Vital Signs Temp Pulse Resp BP Pulse Ox O2 Del Method FiO2 100.7 F H 115 H 17 109/71 94 Mechanical Ventilator 30 12/19/21 07:00 12/19/21 07:15 12/19/21 07:15 12/19/21 07:00 12/19/21 07:15 12/19/21 07:00 12/19/21 07:15 Oxygen Delivery Method Mechanical Ventilator Weight: 67.2 kg Body Mass Index (BMI) 22.0 Intake & Output: Intake and Output for Last 24 Hours 12/17/21 12/18/21 12/19/21 23:59 23:59 23:59 Intake Total 5571.97 / 5574.47 2469.30 / 2469.30 Output Total 2170 / 2320 500 / 500 Balance 3401.97 / 3254.47 1969.30 / 1969.30 Lab / Micro Data Result Diagrams: 12/19/21 03:00 12/19/21 03:00 Labs: Laboratory Results - last 24 hr 12/19/21 03:00: WBC 14.1 H, RBC 4.02 L, Hgb 12.6, Hct 37.9, MCV 94.3, MCH 31.3, MCHC 33.2, RDW Std Deviation 45.7 H, RDW Coeff of Monika 13.4, Plt Count 314, MPV 9.6, Immature Gran % (Auto) 0.400, Neut % (Auto) 87.5 H, Lymph % (Auto) 6.7 L, [place] % (Auto) 4.5, Eos % (Auto) 0.4, Baso % (Auto) 0.5, Absolute Neuts (auto) 12.4 H, Absolute Lymphs (auto) 0.95, Nucleated RBC % 0 12/19/21 03:00: Sodium 143, Potassium 3.0 L, Chloride 112 H, Carbon Dioxide 24.0, Anion Gap 7, BUN 17, Creatinine 0.64, Estim Creat Clear Calc 106.10, Est GFR (MDRD) Af Amer 129, Est GFR (MDRD) Non-Af 107, BUN/Creatinine Ratio 26.4 H, Glucose 134 H, Calcium 7.8 L, Magnesium 1.9, Total Bilirubin 0.30, AST 32, ALT 17, Alkaline Phosphatase 55, Total Protein 5.8 L, Albumin 2.5 L, Globulin 3.3, Albumin/Globulin Ratio 0.8 L Micro: Microbiology 12/18/21 00:35 Sputum, Induced/Lukens Gram Stain - Final 12/18/21 00:45 Nasal Secretion SARS-CoV-2 Antigen (Rapid) - Final Radiography Diagnostic Testing: Radiology Impression Chest CTA 12/18/21 08:04 IMPRESSION: Left upper lobe consolidation. Patchy infiltrates in both lower lobes as well as in the right upper lobe and lingular segment of the left upper lobe. Electronically Signed: Lee Muir MD at 9:42 EDT , Venous Doppler Study 12/18/21 08:04 Interpretation Summary No evidence for acute deep venous thrombosis bilateral lower extremities with patent and compressible bilateral great saphenous veins. Ordering Physician: Michele Pettit Performed By: Dannielle Houser RVT Echocardiogram 12/18/21 09:54 Interpretation Summary Normal LV size. Left ventricular systolic function is normal. The estimated ejection fraction is 55 %. Ordering Physician: Matthew Wagner Referring Physician: KATHIA PCP Performed By: Brandi Fuller RCS Physical Exam Narrative GENERAL: Dated on the vent HEENT: Atraumatic; normocephalic EYES; Anicteric, Normal Conjunctiva NECK; supple, normal thyroid, RESPIRATORY: Diminished to auscultation CARDIOVASCULAR: Regular S1 S2, GI: soft, normoactive bowel sounds, : No Renal angle tenderness; EXTREMITIES: No edema, no clubbing, MUSCULOSKELETAL: no muscle wasting NEURO: Sedated on the vent SKIN: Tattoos lower extremities Assessment & Plan Assessment/Plan (1) Respiratory acidosis: (2) Aspiration into lower respiratory tract: (3) Cardiopulmonary arrest: (4) Respiratory failure: (5) Illicit drug use: (6) Lactic acidosis: (7) Airway intubation performed without difficulty: (8) Aspiration into airway: (9) Cellulitis of leg, left: (10) Drug overdose: PLAN: Plan Patient is a 41-year-old lady with history of polysubstance dependence who was found unresponsive by the boyfriend. CPR was apparently started on the field prior to EMS arriving. Patient apparently aspirated was being resuscitated. Patient was intubated and subsequently admitted to the intensive care unit for further management 1. Acute hypoxic respiratory failure ? Secondary to drug overdose complicated by aspiration pneumonia. Patient was placed on the vent admitted to the intensive care unit consult placed to pulmonary/critical care for vent management - 12/19/2021 Patient seen remains sedated on the vent. Apparently failed her weaning trial. Patient had low-grade fever was given Tylenol without much effect. Subsequent vent management deferred to pulmonary medicine 2. Cardiopulmonary arrest ? Patient was successfully resuscitated using ACLS 3. Drug overdose ? Drug screen in the ED showed amphetamines, MDMA and cannabinoids. Plan is to primary substance abuse counselor patient on cessation once she is medically stable and has been weaned on the vent 4. Aspiration pneumonia ? Patient started on Unasyn. ? 12/19/2021 patient continues to spike fever, Culture still pending 5. Elevated D-dimer ? Possibly related to above however ordered bilateral venous duplex as well as CTA to rule out VTE 6. DVT prophylaxis ? Patient is on enoxaparin 7. Leukocytosis ? Secondary to suspected aspiration pneumonia patient is on antibiotics management as discussed above 8. Hypokalemia ? Corrected per protocol, repeat labs ordered for a.m. Charges/Coding Visit Charges Inpatient E&M: 44774 Subs Hosp L3
[2021-12-19] MEDS: Chlorhexidine 15 ML PO ×2 (07:39→21:25)
[2021-12-19] MEDS: Enoxaparin 40 MG/0.4 ML Syringe SC (07:39)
[2021-12-19] MEDS: Famotidine 20 MG Tablet GT (07:39)
--- NOTE | 2021-12-19 07:47 | PN.CC_ITS ---
Assessment & Plan Assessment/Plan (1) Aspiration into lower respiratory tract: PLAN: Plan RECOMMENDATIONS: 1. Continue assist-control mode of mechanical ventilation. Wean FiO2 for sa turations greater than 90%. 2. Continue empiric antimicrobials. 3. Minimize sedation as tolerated to maintain a RASS of -1 to 1. Transition from propofol to Precedex. 4. Continue tube feeds as tolerated. 5. Continue appropriate DVT and GI prophylaxis. 6. Start bowel regimen today. 7. Potassium repletion as ordered. IMPRESSIONS: 1. Acute combined respiratory failure secondary to illicit drug overdose The patient was found unresponsive in the setting of a history of polysubstance abuse with concern for acute overdose. She did experience a PEA cardiac arrest event with successful ROSC. At the present time, plan to continue invasive m echanical ventilatory support. Continue to wean FiO2 and PEEP to maintain oxygen saturations at or above 90%. Continue empiric antimicrobials to cover for aspiration. Continue tube feeds as tolerated. Transition from propofol to Precedex and attempt to minimize sedation as tolerated. Plan for daily paired spontaneous awakening and breathing trials. 2. Encephalopathy Initially felt to be the consequence of overdose. In order to better assess the patient's baseline neurological status, recommend minimizing sedating medications as tolerated. 3. Status post PEA cardiac arrest The patient's cardiac arrest was likely precipitated by hypoxia in the setting of #1. Echocardiogram was unrevealing. 4. Acute kidney injury Improved. Likely prerenal in etiology in the setting of #1 and 3. Continue supportive measures as noted above. Continue to monitor urine output. No current indication for renal replacement therapy. 5. History of polysubstance abuse Complicates care, management, recovery and prognosis. Continue supportive measures as noted above. Continue tube feeds as tolerated. TIME: 34 minutes of critical care time, independent of procedures, was spent addressing the patient's acute combined respiratory failure, illicit drug overdose, encephalopathy, status post PEA cardiac arrest, acute kidney injury, review of all data and collaboration with the care team. Subjective Subjective The patient was seen and examined at the bedside this morning. Events from the last 24 hours have been reviewed. The patient currently has a low-grade fever but remains otherwise hemodynamically stable. She remains on assist control mode of mechanical ventilation with an FiO2 requirement of 30%. The patient failed her spontaneous breathing trial this morning due to significant agitation. She is documented to be overall net +5.3 L for the hospitalization. White count is elevated at 14,000. Potassium was low this morning at 3.0 with a normal creatinine. Objective Data Objective Data The patient's most recent lab work, culture data and imaging studies have all been personally reviewed. Surface echocardiogram demonstrated normal LV size and function with an ejection fraction of 55%. Lower extremity Doppler showed no evidence for DVT. Sputum and blood cultures are pending. Vital Signs: Vital Signs Temp Pulse Resp BP Pulse Ox O2 Del Method FiO2 100.7 F H 115 H 17 109/71 94 Mechanical Ventilator 30 12/19/21 07:00 12/19/21 07:15 12/19/21 07:15 12/19/21 07:00 12/19/21 07:15 12/19/21 07:00 12/19/21 07:15 Oxygen Delivery Method Mechanical Ventilator Weight: 148 lb 2.41 oz Body Mass Index (BMI) 22.0 Intake & Output: Intake and Output for Last 24 Hours 12/17/21 12/18/21 12/19/21 23:59 23:59 23:59 Intake Total 5571.97 / 5574.47 2482.34 / 2482.34 Output Total 2170 / 2320 500 / 500 Balance 3401.97 / 3254.47 1982.34 / 1982.34 Lab / Micro Data Attestation: I reviewed the patient's lab results. Result Diagrams: 12/19/21 03:00 12/19/21 03:00 Labs: Laboratory Results - last 24 hr 12/19/21 03:00: WBC 14.1 H, RBC 4.02 L, Hgb 12.6, Hct 37.9, MCV 94.3, MCH 31.3, MCHC 33.2, RDW Std Deviation 45.7 H, RDW Coeff of Monika 13.4, Plt Count 314, MPV 9.6, Immature Gran % (Auto) 0.400, Neut % (Auto) 87.5 H, Lymph % (Auto) 6.7 L, [place] % (Auto) 4.5, Eos % (Auto) 0.4, Baso % (Auto) 0.5, Absolute Neuts (auto) 12.4 H, Absolute Lymphs (auto) 0.95, Nucleated RBC % 0 12/19/21 03:00: Sodium 143, Potassium 3.0 L, Chloride 112 H, Carbon Dioxide 24.0, Anion Gap 7, BUN 17, Creatinine 0.64, Estim Creat Clear Calc 106.10, Est GFR (MDRD) Af Amer 129, Est GFR (MDRD) Non-Af 107, BUN/Creatinine Ratio 26.4 H, Glucose 134 H, Calcium 7.8 L, Magnesium 1.9, Total Bilirubin 0.30, AST 32, ALT 17, Alkaline Phosphatase 55, Total Protein 5.8 L, Albumin 2.5 L, Globulin 3.3, Albumin/Globulin Ratio 0.8 L Micro: Microbiology 12/18/21 00:35 Sputum, Induced/Lukens Gram Stain - Final 12/18/21 00:45 Nasal Secretion SARS-CoV-2 Antigen (Rapid) - Final Radiography Diagnostic Testing: Radiology Impression Chest CTA 12/18/21 08:04 IMPRESSION: Left upper lobe consolidation. Patchy infiltrates in both lower lobes as well as in the right upper lobe and lingular segment of the left upper lobe. Electronically Signed: Lee Muir MD at 9:42 EDT , Venous Doppler Study 12/18/21 08:04 Interpretation Summary No evidence for acute deep venous thrombosis bilateral lower extremities with patent and compressible bilateral great saphenous veins. Ordering Physician: Michele Pettit Performed By: Dannielle Houser RVT Echocardiogram 12/18/21 09:54 Interpretation Summary Normal LV size. Left ventricular systolic function is normal. The estimated ejection fraction is 55 %. Ordering Physician: Matthew Wagner Referring Physician: KATHIA PCP Performed By: Brandi Fuller RCS Physical Exam Const General Appearance: intubated and patient mechanically ventilated HEENT normocephalic and head/scalp atraumatic Mouth: endotracheal tube in place and OG tube in place Eyes PERRL and conjunctivae normal Neck supple General: trachea midline Chest inspection of chest normal Resp Auscultation: rhonchi and diminished lung sounds Cardio regular rate and regular rhythm GI normal to inspection, nondistended, normoactive bowel sounds Extremity no clubbing, cyanosis or edema Skin no rashes or lesions noted Neuro Sensorium / Orientation: sedated on vent Charges/Coding Procedures Hospitalists Procedures: [id number] Critial Care 1st Hr
[2021-12-19] MEDS: Potassium Chloride 10mEq/100mL 10 MEQ/100 ML IV.SOLN. 100 MEQ IV BOLUS ×4 (08:20→11:32)
[2021-12-19] MEDS: Dexmedetomidine 400 mcg in 0.9% NS 96 mL 8.4 MCG CONT INF ×2 (09:40→19:07)
[2021-12-19] MEDS: Senna/Docusate Sodium 1 Tablet 2 TABLET GT ×2 (09:44→21:15)
--- NOTE | 2021-12-19 09:50 | CASEMGMT ---
LISSETTE CM in to speak with family. Per sister and son Edgardo, patient is still currently but . Patient's is Ravin Sofia [phone]. LISSETTE ROCHA updated nursing and SW.
[2021-12-19] MEDS: Vancomycin IV 1,000 MG/200 ML BAG 200 MG IV (12:36)
--- NOTE | 2021-12-19 13:52 | PCM.RX.CS ---
Consult Pharmacy has been consulted to manage selected antiobiotic: Vancomycin Type of Consult: New start Suspected Infection: Other Prior Doses of Antibiotics Received/Current Regimen: 12/19/21 @ 1236 Labs: Sodium 143 mmol/L (136-145) 12/19/21 03:00 Potassium 3.0 mmol/L (3.5-5.1) L 12/19/21 03:00 Chloride 112 mmol/L (98-107) H 12/19/21 03:00 Carbon Dioxide 24.0 mmol/L (21.0-32.0) 12/19/21 03:00 Anion Gap 7 (5-15) 12/19/21 03:00 BUN 17 mg/dL (7-18) 12/19/21 03:00 Creatinine 0.64 mg/dL (0.55-1.02) 12/19/21 03:00 Est GFR (MDRD) Af Amer 129 mL/min (>60) 12/19/21 03:00 Est GFR (MDRD) Non-Af 107 mL/min (>60) 12/19/21 03:00 BUN/Creatinine Ratio 26.4 RATIO (10-20) H 12/19/21 03:00 Glucose 134 mg/dL (74-106) H 12/19/21 03:00 Microbiology: Microbiology 12/18/21 00:35 Sputum, Induced/Lukens Gram Stain - Final 12/18/21 00:35 Sputum, Induced/Lukens Respiratory Culture - Preliminary Staphylococcus aureus 12/18/21 00:45 Nasal Secretion SARS-CoV-2 Antigen (Rapid) - Final Weight used for dosin kg Estimated Creatinine Clearance: 106 Goal Trough: 10-15 mcg/mL Pharmacy Plan for Drug Dosing: Start vancomycin 1000mg every 12 hours. start 12/20/21 @0030 Pharmacy Service will continue to monitor and adjust dosing as required. Follow-Up Labs: Trough Vancomycin Labs to be done on [date and time ordered]: 12/21/21 @ 0000
[2021-12-19] MEDS: Vital AF 1.2 Cal Liquid 1,000 ML 45 ML GT (17:39)
--- NOTE | 2021-12-19 19:51 | PCM.HOSP.N ---
Hospitalist Note Called by ICU nursing. Patient was having some considerable agitation and was maxed out on Precedex. Heart rate 150s, respiratory rate was in the 40s and the patient was diaphoretic. Patient is already on mechanical ventilation. Fentanyl is also on board and was increased. We will go ahead and add Versed that is titratable in hopes to wean fentanyl and help with agitation related alcohol detox.
[2021-12-20] VITALS (41 sets, daily range): BP systolic 81–132; BP diastolic 50–80; PULSE 18–129; RESP 10–37; TEMP 37.6–38.9; O2SAT 91–100
[2021-12-20] MEDS: Vancomycin IV 1,000 MG/200 ML BAG 200 MG IV ×2 (00:03→12:13)
[2021-12-20] MEDS: Ipratropium/Albuterol Sulfate 3 ML AMPUL.NEB INHALATION ×6 (02:10→23:03)
[2021-12-20 04:04] LABS: Absolute Lymphocyte Count 0.46 X10^3/uL (0.83-4.51); Absolute Neutrophil Count 8.6 X10^3/uL (2.0-7.7); Basophil# 0.05 X10^3/uL; Basophil% 0.5 % (0-1); Eosinophil# 0.19 X10^3/uL; Eosinophils% 1.9 % (0-5); Hematocrit 34.6 % (37-47); Hemoglobin 11.1 g/dL (12.0-15.0); Lymphocyte # 0.46 X10^3/ul (0.83-4.51); Lymphocyte % 4.5 % (19-41); Mean Corp Hgb Conc 32.1 g/dL (32-36); Mean Corpuscular Volume 96.6 fL (81-99); Mean Platelet Vol. 10.6 fl (6.2-12.0); Monocyte# 0.59 X10^3/uL; Monocyte% 5.8 % (0-10); NRBC Flagged by Analyzer 0 % (0-5); Neutrophil # 8.63 X10^3/uL (2.7-7.7); Neutrophil % 85.4 % (47-70); POSITIVE DIFFERENTIAL YES; POSITIVE MORPHOLOGY YES; Platelet Count 252 K/mm3 (150-450); RBC Distribution Width CV 13.6 % (11.6-14.6); RBC Distribution Width SD 48.5 fl (35.1-43.9); Red Blood Count 3.58 M/mm3 (4.2-5.4); White Blood Count 10.1 K/mm3 (4.4-11.0)
[2021-12-20 04:07] LABS: Differential Indicated SCAN CRITERIA MET
[2021-12-20 04:27] LABS: ALB/GLOB Ratio 0.6 RATIO (0.9-2.4); AST(SGOT) 37 U/L (15-37); Alanine Aminotransfer ALT/SGPT 14 U/L (13-56); Albumin, Serum 2.2 g/dL (3.2-5.0); Alkaline Phosphatase 61 U/L (45-117); Anion Gap 5 (5-15); BUN 20 mg/dL (7-18); BUN/Creat Ratio 29.4 RATIO (10-20); Calcium,Total 8.2 mg/dL (8.5-10.1); Chloride 110 mmol/L (98-107); Creatinine, Serum 0.68 mg/dL (0.55-1.02); EST Glomerular Filtration Rate 100 mL/min (>60); Est Glom Filt Rate - Afr Amer 121 mL/min (>60); Estimated Creatinine Clearance 99.86 ml/min; Globulin 3.8 g/dL (2.2-4.2); Glucose 145 mg/dL (74-106); Potassium 3.5 mmol/L (3.5-5.1); Sodium Level 140 mmol/L (136-145)
[2021-12-20] MEDS: Dexmedetomidine 400 mcg in 0.9% NS 96 mL 8.4 MCG CONT INF (05:01)
[2021-12-20] MEDS: Carboxymethylcellulose sodium gel dropperette 1 EACH EACH EYE ×3 (05:12→22:08)
[2021-12-20] MEDS: TITRATION PARAMETER CHANGE 1 EACH IV (06:18)
[2021-12-20] MEDS: Acetaminophen 650 MG/20 ML UDC NG ×3 (06:19→22:12)
--- NOTE | 2021-12-20 07:11 | PN.CC_ITS ---
Assessment & Plan Assessment/Plan (1) Aspiration into lower respiratory tract: PLAN: Plan RECOMMENDATIONS: 1. Continue assist-control mode of mechanical ventilation. Wean FiO2 for sa turations greater than 90%. 2. Continue empiric antimicrobials. 3. Minimize sedation as tolerated to maintain a RASS of -1 to 1. 4. Continue tube feeds as tolerated. 5. Continue appropriate DVT and GI prophylaxis. 6. Continue bowel regimen as ordered. 7. Obtain MRI brain. IMPRESSIONS: 1. Acute combined respiratory failure secondary to illicit drug overdose The patient was found unresponsive in the setting of a history of polysubstance abuse with concern for acute overdose. She did experience a PEA cardiac arrest event with successful ROSC. At the present time, plan to continue invasive mechanical ventilatory support. Continue to wean FiO2 and PEEP to maintain oxygen saturations at or above 90%. Continue empiric antimicrobials to cover for aspiration. Continue tube feeds as tolerated. Plan for daily paired spontaneous awakening and breathing trials. 2. Encephalopathy Initially felt to be the consequence of overdose. In order to better assess the patient's baseline neurological status, recommend minimizing sedating medications as tolerated. Given that the patient has not began to follow any commands, will obtain MRI brain. 3. Status post PEA cardiac arrest The patient's cardiac arrest was likely precipitated by hypoxia in the setting of #1. Echocardiogram was unrevealing. 4. Acute kidney injury Improved. Likely prerenal in etiology in the setting of #1 and 3. Continue supportive measures as noted above. Continue to monitor urine output. No current indication for renal replacement therapy. 5. History of polysubstance abuse Complicates care, management, recovery and prognosis. Continue supportive measures as noted above. Continue tube feeds as tolerated. TIME: 32 minutes of critical care time, independent of procedures, was spent addressing the patient's acute combined respiratory failure, illicit drug overdose, encephalopathy, status post PEA cardiac arrest, acute kidney injury, review of all data and collaboration with the care team. Subjective Subjective The patient was seen and examined at the bedside this morning. Events from the last 24 hours have been reviewed. The patient is currently afebrile, hemodynamically stable and maintaining appropriate oxygen saturations on assist control mode mechanical ventilation with an FiO2 requirement of 30%. Overnight, the patient became diaphoretic, tachycardic and tachypneic. She was apparently placed on a continuous Versed infusion. This medication was subsequently discontinued this morning. Although the patient becomes agitated with nursing care, she is still not directable or able to follow any commands. She is curre ntly documented to be overall net +8.3 L for the hospitalization. Objective Data Objective Data The patient's most recent lab work, culture data and imaging studies have all been personally reviewed. Surface echocardiogram demonstrated normal LV size and function with an ejection fraction of 55%. Lower extremity Doppler showed no evidence for DVT. Preliminary sputum culture is demonstrating growth of 3+ Staph aureus. Vital Signs: Vital Signs Temp Pulse Resp BP Pulse Ox O2 Del Method O2 Flow Rate 100.9 F H 106 H 20 H 132/80 H 96 Mechanical Ventilator 30 12/20/21 07:00 12/20/21 07:00 12/20/21 07:00 12/20/21 07:00 12/20/21 07:00 12/20/21 07:00 12/19/21 19:00 FiO2 30 12/20/21 07:00 Oxygen Flow Rate (L/min) 30 Oxygen Delivery Method Mechanical Ventilator Weight: 152 lb 12.485 oz Body Mass Index (BMI) 22.0 Intake & Output: Intake and Output for Last 24 Hours 12/18/21 12/19/21 12/20/21 23:59 23:59 23:59 Intake Total 5571.97 / 5574.47 5420.89 / 5432.79 819.15 / 819.15 Output Total 2170 / 2320 1050 / 1050 250 / 250 Balance 3401.97 / 3254.47 4370.89 / 4382.79 569.15 / 569.15 Lab / Micro Data Attestation: I reviewed the patient's lab results. Result Diagrams: 12/20/21 03:55 12/20/21 03:55 Labs: Laboratory Results - last 24 hr 12/20/21 03:55: WBC 10.1, RBC 3.58 L, Hgb 11.1 L, Hct 34.6 L, MCV 96.6, MCH 31.0, MCHC 32.1, RDW Std Deviation 48.5 H, RDW Coeff of Monika 13.6, Plt Count 252, MPV 10.6, Immature Gran % (Auto) 1.900 H, Neut % (Auto) 85.4 H, Lymph % (Auto) 4.5 L, [place] % (Auto) 5.8, Eos % (Auto) 1.9, Baso % (Auto) 0.5, Absolute Neuts (auto) 8.6 H, Absolute Lymphs (auto) 0.46 L, Nucleated RBC % 0 12/20/21 03:55: Sodium 140, Potassium 3.5, Chloride 110 H, Carbon Dioxide 25.0, Anion Gap 5, BUN 20 H, Creatinine 0.68, Estim Creat Clear Calc 99.86, Est GFR (MDRD) Af Amer 121, Est GFR (MDRD) Non-Af 100, BUN/Creatinine Ratio 29.4 H, Glucose 145 H, Calcium 8.2 L, Total Bilirubin 0.50, AST 37, ALT 14, Alkaline Phosphatase 61, Total Protein 6.0 L, Albumin 2.2 L, Globulin 3.8, Albumin/Globulin Ratio 0.6 L Micro: Microbiology 12/18/21 00:35 Sputum, Induced/Lukens Gram Stain - Final 12/18/21 00:35 Sputum, Induced/Lukens Respiratory Culture - Preliminary Staphylococcus aureus 12/18/21 00:45 Nasal Secretion SARS-CoV-2 Antigen (Rapid) - Final Radiography Diagnostic Testing: Radiology Impression Chest CTA 12/18/21 08:04 IMPRESSION: Left upper lobe consolidation. Patchy infiltrates in both lower lobes as well as in the right upper lobe and lingular segment of the left upper lobe. Electronically Signed: Lee Muir MD at 9:42 EDT Reading Location ID and State: [address] [place] [address] , Service support , Venous Doppler Study 12/18/21 08:04 Interpretation Summary No evidence for acute deep venous thrombosis bilateral lower extremities with pa tent and compressible bilateral great saphenous veins. Ordering Physician: Michele Pettit Performed By: Dannielle Houser RVT Echocardiogram 12/18/21 09:54 Interpretation Summary Normal LV size. Left ventricular systolic function is normal. The estimated ejection fraction is 55 %. Ordering Physician: Matthew Wagner Referring Physician: KATHIA PCP Performed By: Brandi Fuller RCS Physical Exam Const General Appearance: intubated and patient mechanically ventilated HEENT normocephalic and head/scalp atraumatic Mouth: endotracheal tube in place and OG tube in place Eyes PERRL and conjunctivae normal Neck supple General: trachea midline Chest inspection of chest normal Resp Auscultation: rhonchi, wheezes and diminished lung sounds Cardio regular rate and regular rhythm GI normal to inspection, nondistended, normoactive bowel sounds Extremity no clubbing, cyanosis or edema Skin no rashes or lesions noted Neuro Sensorium / Orientation: sedated on vent Charges/Coding Procedures Hospitalists Procedures: [id number] Critial Care 1st Hr
--- NOTE | 2021-12-20 07:19 | PCM.PN.HOSP ---
Subjective Subjective Patient seen remains on the vent. Nursing report overnight reviewed. Patient sputum cultures obtained on admission so far positive for staphylococcal aureus final identification and sensitivities pending. Vancomycin added to patient's therapy Objective Data Objective Data Vital Signs: Vital Signs Temp Pulse Resp BP Pulse Ox O2 Del Method O2 Flow Rate 100.9 F H 106 H 20 H 132/80 H 96 Mechanical Ventilator 30 12/20/21 07:00 12/20/21 07:00 12/20/21 07:00 12/20/21 07:00 12/20/21 07:00 12/20/21 07:00 12/19/21 19:00 FiO2 30 12/20/21 07:00 Oxygen Flow Rate (L/min) 30 Oxygen Delivery Method Mechanical Ventilator Weight: 69.3 kg Body Mass Index (BMI) 22.0 Intake & Output: Intake and Output for Last 24 Hours 12/18/21 12/19/21 12/20/21 23:59 23:59 23:59 Intake Total 5571.97 / 5574.47 5420.89 / 5432.79 819.15 / 819.15 Output Total 2170 / 2320 1050 / 1050 250 / 250 Balance 3401.97 / 3254.47 4370.89 / 4382.79 569.15 / 569.15 Lab / Micro Data Result Diagrams: 12/20/21 03:55 12/20/21 03:55 Labs: Laboratory Results - last 24 hr 12/20/21 03:55: WBC 10.1, RBC 3.58 L, Hgb 11.1 L, Hct 34.6 L, MCV 96.6, MCH 31.0, MCHC 32.1, RDW Std Deviation 48.5 H, RDW Coeff of Monika 13.6, Plt Count 252, MPV 10.6, Immature Gran % (Auto) 1.900 H, Neut % (Auto) 85.4 H, Lymph % (Auto) 4.5 L, [place] % (Auto) 5.8, Eos % (Auto) 1.9, Baso % (Auto) 0.5, Absolute Neuts (auto) 8.6 H, Absolute Lymphs (auto) 0.46 L, Nucleated RBC % 0 12/20/21 03:55: Sodium 140, Potassium 3.5, Chloride 110 H, Carbon Dioxide 25.0, Anion Gap 5, BUN 20 H, Creatinine 0.68, Estim Creat Clear Calc 99.86, Est GFR (MDRD) Af Amer 121, Est GFR (MDRD) Non-Af 100, BUN/Creatinine Ratio 29.4 H, Glucose 145 H, Calcium 8.2 L, Total Bilirubin 0.50, AST 37, ALT 14, Alkaline Phosphatase 61, Total Protein 6.0 L, Albumin 2.2 L, Globulin 3.8, Albumin/Globulin Ratio 0.6 L Micro: Microbiology 12/18/21 00:35 Sputum, Induced/Lukens Gram Stain - Final 12/18/21 00:35 Sputum, Induced/Lukens Respiratory Culture - Preliminary Staphylococcus aureus 12/18/21 00:45 Nasal Secretion SARS-CoV-2 Antigen (Rapid) - Final Physical Exam Narrative GENERAL: sedated on the vent HEENT: Atraumatic; normocephalic EYES; Anicteric, Normal Conjunctiva NECK; supple, normal thyroid, RESPIRATORY: Diminished to auscultation CARDIOVASCULAR: Regular S1 S2, GI: soft, normoactive bowel sounds, : No Renal angle tenderness; EXTREMITIES: No edema, no clubbing, MUSCULOSKELETAL: no muscle wasting NEURO: Sedated on the vent SKIN: Tattoos lower extremities Assessment & Plan Assessment/Plan (1) Respiratory acidosis: (2) Aspiration into lower respiratory tract: (3) Cardiopulmonary arrest: (4) Respiratory failure: (5) Illicit drug use: (6) Lactic acidosis: (7) Airway intubation performed without difficulty: (8) Aspiration into airway: (9) Cellulitis of leg, left: (10) Drug overdose: PLAN: Plan Patient is a 41-year-old lady with history of polysubstance dependence who was found unresponsive by the boyfriend. CPR was apparently started on the field prior to EMS arriving. Patient apparently aspirated was being resuscitated. Patient was intubated and subsequently admitted to the intensive care unit for further management 1. Acute hypoxic respiratory failure ? Secondary to drug overdose complicated by aspiration pneumonia. Patient was placed on the vent admitted to the intensive care unit consult placed to pulmonary/critical care for vent management - 12/19/2021 Patient seen remains sedated on the vent. Apparently failed her weaning trial. Patient had low-grade fever was given Tylenol without much effect. Subsequent vent management deferred to pulmonary medicine - 12/20/2021 patient seen remains on the vent. Nursing report overnight reviewed. Patient sputum cultures obtained on admission so far positive for staphylococcal aureus final identification and sensitivities pending. Vancomycin added to patient's therapy 2. Cardiopulmonary arrest ? Patient was successfully resuscitated using ACLS 3. Drug overdose ? Drug screen in the ED showed amphetamines, MDMA and cannabinoids. 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 Aspiration pneumonia ? Patient started on Unasyn. ? 12/19/2021 patient continues to spike fever, Culture still pending -12/20/2021 patient seen remains on the vent. Nursing report overnight reviewed. Patient sputum cultures obtained on admission so far positive for staphylococcal aureus final identification and sensitivities pending. Vancomycin added to patient's therapy 5. Elevated D-dimer ? Possibly related to above however ordered bilateral venous duplex as well as CTA to rule out VTE 6. DVT prophylaxis ? Patient is on enoxaparin 7. Leukocytosis ? Secondary to suspected aspiration pneumonia patient is on antibiotics management as discussed above 8. Hypokalemia ? Corrected per protocol, repeat labs ordered for a.m. Charges/Coding Visit Charges Inpatient E&M: 60484 [facility] L3
--- NOTE | 2021-12-20 07:30 | RAD_ITS ---
EXAM: XR CHEST, 1 VIEW CLINICAL INDICATION: Respiratory Failure TECHNIQUE: Frontal view of the chest. This report was created using [employer] report generation technology. COMPARISON: 12/18/2021. FINDINGS: LUNGS AND PLEURAL SPACES: No obvious infiltrates in the left lung or the right lung. No pneumothorax. No effusion. HEART: Unremarkable. Cardiac silhouette not enlarged. MEDIASTINUM: Central airways and mediastinal contour are unremarkable. BONES/JOINTS: Unremarkable. SOFT TISSUES: Unremarkable. TUBES, LINES AND DEVICES: ET tube tip is 5 cm above the hailee. OG tube tip and sidehole right-sided gastric cavity. RAD/Chest 1 View (Portable) IMPRESSION: 1. Pneumonia in the left lung greater than right lung. This is now obvious S progression when compared to 12/18/2021. 2. Distal rib position of OG tube, side hole is farther down inside the stomach. 3. No other additional findings or changes. Electronically Signed: Frank Wolff MD at 8:03 EDT ,
[2021-12-20] MEDS: Chlorhexidine 15 ML PO ×2 (10:20→22:12)
[2021-12-20] MEDS: Senna/Docusate Sodium 1 Tablet 2 TABLET GT ×2 (10:20→22:08)
[2021-12-20] MEDS: Enoxaparin 40 MG/0.4 ML Syringe SC (10:20)
[2021-12-20] MEDS: Famotidine 20 MG Tablet GT (10:20)
--- NOTE | 2021-12-20 11:45 | RAD_ITS ---
EXAM: XR ABDOMEN, 1 VIEW CLINICAL INDICATION: SCREENING FOR Mri, intubated -- PORTABLE TECHNIQUE: Frontal supine view of the abdomen/pelvis. This report was created using [employer] report Ton[employer] technology. COMPARISON: None. FINDINGS: LOWER THORAX: No acute pathology. GASTROINTESTINAL TRACT: Unremarkable. Non-obstructive. No bowel or stomach distention. ORGANS: Unremarkable as visualized. No organomegaly. No abnormal calcifications. BONES/JOINTS: Radiopaque wire overlying the symphysis pubis. Please correlate with direct visual inspection. No other radiopaque foreign bodies in the abdomen and pelvis. SOFT TISSUES: See above. TUBES, LINES AND DEVICES: Gastric gaseous dilatation contains the sidehole and tip of the NG tube. RAD/Abdomen Single View IMPRESSION: Radiopaque wire overlying the symphysis pubis. This is the only radiopaque foreign body in the abdomen and pelvis. Okay to proceed with MRI if this radiopaque wire is removed. Electronically Signed: Frank Wolff MD at 12:40 EDT ,
[2021-12-20] MEDS: Dexmedetomidine 400 mcg in 0.9% NS 96 mL 10.4 MCG CONT INF ×2 (13:43→23:20)
--- NOTE | 2021-12-20 14:20 | MRI_ITS ---
STUDY: MRI BRAIN WITH AND WITHOUT CONTRAST REASON FOR EXAM: Female, 41 years old. s/p cardiac arrest, eval for anoxic brain injury TECHNIQUE: Standardized multiplanar fat and water weighted pulse sequences were obtained. IV 14mL CLARISCAN was administered for the contrast portion of the examination. COMPARISON: CT 12/18/2021 FINDINGS: Normal size of the ventricles and extra-axial spaces for the patient''s age. Normal white matter tracts of the supratentorial brain. There is no evidence for recent intracranial ischemia or other cause of cytotoxic edema on diffusion weighted imaging (DWI). Normal T2* images of the brain without demonstrated susceptibility artifact. There is no demonstrated hemosiderin stain. Normal bilateral basal ganglia. Normal thalami. There is no extra-axial fluid accumulation. Normal flow voids within the major intracranial circulation suggesting patency by spin echo criteria. Normal venous enhancement. There is no enhancing intra-axial or extra-axial abnormality. Normal sella turcica, pituitary gland, infundibular stalk, optic chiasm and hypothalamus. Normal tectal plate and pineal gland. Normal midbrain, luis manuel and medulla. Normal cerebellum. Normal basal cisterns. Normal bilateral temporal bones. Normal bilateral internal auditory canals. No demonstrated orbital abnormality, within the constraints of a routine brain study. There is mucoperiosteal inflammatory disease of the paranasal sinuses consistent with moderate chronic sinusitis. Normal calvarium and skull base. Normal visualized soft tissue structures. Normal visualized upper cervical spine. MRI/Brain W/WO Contrast IMPRESSION: Normal unenhanced and enhanced MRI of the brain. Electronically Signed: Kavon Pena MD at 16:08 EDT ,
[2021-12-20] MEDS: Vital AF 1.2 Cal Liquid 1,000 ML 60 ML GT (17:40)
[2021-12-20] MEDS: 0.9% Saline Lock 10 ML Syringe IV (22:09)
[2021-12-21] VITALS (39 sets, daily range): BP systolic 88–174; BP diastolic 55–103; PULSE 84–147; RESP 8–36; TEMP 36.1–38.7; O2SAT 93–99
[2021-12-21 00:50] LABS: Vancomycin, Trough Level 4.7 ug/mL (5.0-15.0)
[2021-12-21] MEDS: Vancomycin IV 1,000 MG/200 ML BAG 200 MG IV (01:12)
[2021-12-21] MEDS: Ipratropium/Albuterol Sulfate 3 ML AMPUL.NEB INHALATION ×6 (02:05→23:50)
[2021-12-21] MEDS: TITRATION PARAMETER CHANGE 1 EACH IV (03:13)
[2021-12-21 04:54] LABS: Absolute Lymphocyte Count 0.62 X10^3/uL (0.83-4.51); Absolute Neutrophil Count 5.6 X10^3/uL (2.0-7.7); Basophil# 0.03 X10^3/uL; Basophil% 0.4 % (0-1); Eosinophil# 0.31 X10^3/uL; Eosinophils% 4.3 % (0-5); Hematocrit 30.6 % (37-47); Hemoglobin 9.9 g/dL (12.0-15.0); Lymphocyte # 0.62 X10^3/ul (0.83-4.51); Lymphocyte % 8.5 % (19-41); Mean Corp Hgb Conc 32.4 g/dL (32-36); Mean Corpuscular Hgb 31.3 pg (27.0-32.0); Mean Corpuscular Volume 96.8 fL (81-99); Mean Platelet Vol. 10.4 fl (6.2-12.0); Monocyte# 0.63 X10^3/uL; Monocyte% 8.7 % (0-10); NRBC Flagged by Analyzer 0 % (0-5); Neutrophil # 5.63 X10^3/uL (2.7-7.7); Neutrophil % 77.5 % (47-70); POSITIVE MORPHOLOGY YES; Platelet Count 239 K/mm3 (150-450); RBC Distribution Width CV 14.1 % (11.6-14.6); RBC Distribution Width SD 49.6 fl (35.1-43.9); Red Blood Count 3.16 M/mm3 (4.2-5.4); White Blood Count 7.3 K/mm3 (4.4-11.0)
[2021-12-21 04:55] LABS: Differential Indicated SCAN CRITERIA MET
[2021-12-21 05:11] LABS: ALB/GLOB Ratio 0.5 RATIO (0.9-2.4); AST(SGOT) 25 U/L (15-37); Alanine Aminotransfer ALT/SGPT 14 U/L (13-56); Albumin, Serum 1.9 g/dL (3.2-5.0); Alkaline Phosphatase 61 U/L (45-117); Anion Gap 3 (5-15); BUN 21 mg/dL (7-18); BUN/Creat Ratio 42.5 RATIO (10-20); Calcium,Total 7.9 mg/dL (8.5-10.1); Chloride 112 mmol/L (98-107); Creatinine, Serum 0.49 mg/dL (0.55-1.02); EST Glomerular Filtration Rate 145 mL/min (>60); Est Glom Filt Rate - Afr Amer 176 mL/min (>60); Estimated Creatinine Clearance 138.59 ml/min; Globulin 3.8 g/dL (2.2-4.2); Glucose 140 mg/dL (74-106); Potassium 3.3 mmol/L (3.5-5.1); Protein, Total 5.7 g/dL (6.4-8.2); Sodium Level 142 mmol/L (136-145)
[2021-12-21] MEDS: Acetaminophen 650 MG/20 ML UDC NG ×3 (05:43→22:22)
[2021-12-21] MEDS: Carboxymethylcellulose sodium gel dropperette 1 EACH EACH EYE ×3 (05:43→21:30)
--- NOTE | 2021-12-21 05:57 | PCM.RX.CS ---
Consult Pharmacy has been consulted to manage selected antiobiotic: Vancomycin Type of Consult: Follow-up Labs: Sodium 142 mmol/L (136-145) 12/21/21 04:45 Potassium 3.3 mmol/L (3.5-5.1) L 12/21/21 04:45 Chloride 112 mmol/L (98-107) H 12/21/21 04:45 Carbon Dioxide 27.0 mmol/L (21.0-32.0) 12/21/21 04:45 Anion Gap 3 (5-15) L 12/21/21 04:45 BUN 21 mg/dL (7-18) H 12/21/21 04:45 Creatinine 0.49 mg/dL (0.55-1.02) L 12/21/21 04:45 Est GFR (MDRD) Af Amer 176 mL/min (>60) 12/21/21 04:45 Est GFR (MDRD) Non-Af 145 mL/min (>60) 12/21/21 04:45 BUN/Creatinine Ratio 42.5 RATIO (10-20) H 12/21/21 04:45 Glucose 140 mg/dL (74-106) H 12/21/21 04:45 Vancomycin Trough 4.7 ug/mL (5.0-15.0) L 12/21/21 00:25 Microbiology: Microbiology 12/18/21 01:10 Blood Culture (Wb) - Anticubital Right Blood Culture - Preliminary No growth in 48 hours. 12/18/21 00:40 Blood Culture (Wb) - Anticubital Left Blood Culture - Preliminary No growth in 48 hours. 12/18/21 00:35 Sputum, Induced/Lukens Gram Stain - Final 12/18/21 00:35 Sputum, Induced/Lukens Respiratory Culture - Final Meth. resistant Staph. aureus 12/18/21 00:45 Nasal Secretion SARS-CoV-2 Antigen (Rapid) - Final Goal Trough: 10-15 mcg/mL Pharmacy Plan for Drug Dosing: Pharmacy Service will continue to monitor and adjust dosing as required. TROUGH 4.7 @ 12 HRS. INCREASE TO 1500 BID AND FOLLOW UP TROUGH PRIOR TO 4TH DOSE Follow-Up Labs: Trough Vancomycin Labs to be done on [date and time ordered]: 12/23 @ 0000
--- NOTE | 2021-12-21 06:09 | PCM.PN.INT ---
Assessment & Plan Assessment/Plan (1) Aspiration into lower respiratory tract: PLAN: Plan RECOMMENDATIONS: 1. Continue spontaneous mode of mechanical ventilation as tolerated. 2. Transition back to assist-control mode mechanical ventilation for overnight support. 3. Obtain arterial blood gas, TSH and ammonia. 4. Obtain EEG. 5. Continue to hold sedating medications. 6. Continue antimicrobials as ordered. 7. Okay to resume tube feeds. 8. Continue appropriate DVT and GI prophylaxis. 9. Continue bowel regimen as ordered. IMPRESSIONS: 1. Acute combined respiratory failure secondary to illicit drug overdose The patient was found unresponsive in the setting of a history of polysubstance abuse with concern for acute overdose. She did experience a PEA cardiac arrest event with successful ROSC. At the present time, plan to continue invasive mechanical ventilatory support. Continue to wean FiO2 and PEEP to maintain oxygen saturations at or above 90%. Continue antimicrobials to cover for aspiration. Okay to continue patient on spontaneous mode mechanical ventilation throughout the day, with plans to transition her back to assist control for overnight support. Continue to hold sedating medications, pending improvement in mentation. Okay to resume tube feeds today. In light of the patient's volume status and wheezing on exam, will attempt gentle diuresis with IV Lasix today. 2. Encephalopathy Initially felt to be the consequence of overdose. In order to better assess the patient's baseline neurological status, recommend minimizing sedating medications as tolerated. MRI brain was unremarkable. Given her lack of neurological improvement since sedating medications have been placed on hold, will obtain EEG. In addition, we will check a follow-up arterial blood gas, ammonia and TSH level. 3. Status post PEA cardiac arrest The patient's cardiac arrest was likely precipitated by hypoxia in the setting of #1. Echocardiogram was unrevealing. 4. Acute kidney injury Improved. Likely prerenal in etiology in the setting of #1 and 3. Continue supportive measures as noted above. Continue to monitor urine output. No current indication for renal replacement therapy. 5. History of polysubstance abuse Complicates care, management, recovery and prognosis. Continue supportive measures as noted above. Continue tube feeds as tolerated. TIME: 35 minutes of critical care time, independent of procedures, was spent addressing the patient's acute combined respiratory failure, illicit drug overdose, encephalopathy, status post PEA cardiac arrest, acute kidney injury, review of all data and collaboration with the care team. Subjective Subjective The patient was seen and examined at the bedside this morning. Events from the last 24 hours have been reviewed. The patient currently has a low-grade fever and remains on assist control mode of mechanical ventilation with an FiO2 requirement of 30% and PEEP of 5. The patient's sedation was placed on hold this morning and she has done well from a respiratory standpoint on a spontaneous breathing trial. However, the patient is not currently alert or interactive. She is currently documented to be overall net +13.4 L for the hospitalization. Potassium is low at 3.3. Brain MRI yesterday was unremarkable. Objective Data Objective Data The patient's most recent lab work, culture data and imaging studies have all been personally reviewed. Surface echocardiogram demonstrated normal LV size and function with an ejection fraction of 55%. Lower extremity Doppler showed no evidence for DVT. Sputum culture dated December 18 was positive for MRSA. Vital Signs: Vital Signs Temp Pulse Resp BP Pulse Ox O2 Del Method O2 Flow Rate 100.6 F H 98 26 H 94/60 95 Mechanical Ventilator 30 12/21/21 05:00 12/21/21 05:09 12/21/21 05:09 12/21/21 05:00 12/21/21 05:09 12/21/21 05:00 12/19/21 19:00 FiO2 30 12/21/21 05:00 Oxygen Flow Rate (L/min) 30 Oxygen Delivery Method Mechanical Ventilator Weight: 153 lb 3.54 oz Body Mass Index (BMI) 22.0 Intake & Output: Intake and Output for Last 24 Hours 12/19/21 12/20/21 12/21/21 23:59 23:59 23:59 Intake Total 5420.89 / 5432.79 4817.53 / 5322.46 1364.43 / 1364.43 Output Total 1050 / 1050 600 / 925 325 / 325 Balance 4370.89 / 4382.79 4217.53 / 4397.46 1039.43 / 1039.43 Lab / Micro Data Attestation: I reviewed the patient's lab results. Result Diagrams: 12/21/21 04:45 12/21/21 12:08 Labs: Laboratory Results - last 24 hr 12/21/21 00:25: Vancomycin Trough 4.7 L 12/21/21 04:45: WBC 7.3, RBC 3.16 L, Hgb 9.9 L, Hct 30.6 L, MCV 96.8, MCH 31.3, MCHC 32.4, RDW Std Deviation 49.6 H, RDW Coeff of Monika 14.1, Plt Count 239, MPV 10.4, Immature Gran % (Auto) 0.600, Neut % (Auto) 77.5 H, Lymph % (Auto) 8.5 L, [place] % (Auto) 8.7, Eos % (Auto) 4.3, Baso % (Auto) 0.4, Absolute Neuts (auto) 5.6, Absolute Lymphs (auto) 0.62 L, Nucleated RBC % 0 12/21/21 04:45: Sodium 142, Potassium 3.3 L, Chloride 112 H, Carbon Dioxide 27.0, Anion Gap 3 L, BUN 21 H, Creatinine 0.49 L, Estim Creat Clear Calc 138.59, Est GFR (MDRD) Af Amer 176, Est GFR (MDRD) Non-Af 145, BUN/Creatinine Ratio 42.5 H, Glucose 140 H, Calcium 7.9 L, Total Bilirubin 0.30, AST 25, ALT 14, Alkaline Phosphatase 61, Total Protein 5.7 L, Albumin 1.9 L, Globulin 3.8, Albumin/Globulin Ratio 0.5 L Micro: Microbiology 12/18/21 01:10 Blood Culture (Wb) - Anticubital Right Blood Culture - Preliminary No growth in 48 hours. 12/18/21 00:40 Blood Culture (Wb) - Anticubital Left Blood Culture - Preliminary No growth in 48 hours. 12/18/21 00:35 Sputum, Induced/Lukens Gram Stain - Final 12/18/21 00:35 Sputum, Induced/Lukens Respiratory Culture - Final Meth. resistant Staph. aureus 12/18/21 00:45 Nasal Secretion SARS-CoV-2 Antigen (Rapid) - Final Radiography Diagnostic Testing: Radiology Impression Chest X-Ray 12/20/21 07:30 IMPRESSION: 1. Pneumonia in the left lung greater than right lung. This is now obvious S progression when compared to 12/18/2021. 2. Distal rib position of OG tube, side hole is farther down inside the stomach. 3. No other additional findings or changes. Electronically Signed: Frank Wolff MD at 8:03 EDT , KUB X-Ray 12/20/21 11:45 IMPRESSION: Radiopaque wire overlying the symphysis pubis. This is the only radiopaque foreign body in the abdomen and pelvis. Okay to proceed with MRI if this radiopaque wire is removed. Electronically Signed: Frank Wolff MD at 12:40 EDT , Brain MRI 12/20/21 14:20 IMPRESSION: Normal unenhanced and enhanced MRI of the brain. Electronically Signed: Kavon Pena MD at 16:08 EDT , Physical Exam Const Constitutional Narrative: Currently unresponsive on spontaneous mode mechanical ventilation. General Appearance: intubated and patient mechanically ventilated HEENT normocephalic and head/scalp atraumatic Mouth: endotracheal tube in place and OG tube in place Eyes PERRL and conjunctivae normal Neck supple General: trachea midline Chest inspection of chest normal Resp Auscultation: wheezes and diminished lung sounds Cardio regular rate and regular rhythm GI normal to inspection, nondistended, normoactive bowel sounds Extremity General Extremity: edema; Negative for clubbing Skin no rashes or lesions noted Neuro Neuro Narrative: Currently nonresponsive. Charges/Coding Procedures Hospitalists Procedures: [id number] [facility]
--- NOTE | 2021-12-21 08:04 | PCM.PN.HOSP ---
Subjective Subjective Patient sputum cultures came back positive for MRSA. Patient was started on vancomycin the day prior. Patient sedation has been weaned off however patient remains unresponsive on the vent. Consult has been placed to teleneurology Objective Data Objective Data Vital Signs: Vital Signs Temp Pulse Resp BP Pulse Ox O2 Del Method O2 Flow Rate 101.4 F H 92 13 110/56 L 95 Mechanical Ventilator 30 12/21/21 07:00 12/21/21 07:32 12/21/21 07:00 12/21/21 07:00 12/21/21 07:00 12/21/21 07:00 12/19/21 19:00 FiO2 30 12/21/21 07:00 Oxygen Flow Rate (L/min) 30 Oxygen Delivery Method Mechanical Ventilator Weight: 69.5 kg Body Mass Index (BMI) 22.0 Intake & Output: Intake and Output for Last 24 Hours 12/19/21 12/20/21 12/21/21 23:59 23:59 23:59 Intake Total 5420.89 / 5432.79 4817.53 / 5322.46 1947.13 / 1947.13 Output Total 1050 / 1050 600 / 925 525 / 525 Balance 4370.89 / 4382.79 4217.53 / 4397.46 1422.13 / 1422.13 Lab / Micro Data Result Diagrams: 12/21/21 04:45 12/21/21 04:45 Labs: Laboratory Results - last 24 hr 12/21/21 00:25: Vancomycin Trough 4.7 L 12/21/21 04:45: WBC 7.3, RBC 3.16 L, Hgb 9.9 L, Hct 30.6 L, MCV 96.8, MCH 31.3, MCHC 32.4, RDW Std Deviation 49.6 H, RDW Coeff of Monika 14.1, Plt Count 239, MPV 10.4, Immature Gran % (Auto) 0.600, Neut % (Auto) 77.5 H, Lymph % (Auto) 8.5 L, [place] % (Auto) 8.7, Eos % (Auto) 4.3, Baso % (Auto) 0.4, Absolute Neuts (auto) 5.6, Absolute Lymphs (auto) 0.62 L, Nucleated RBC % 0 12/21/21 04:45: Sodium 142, Potassium 3.3 L, Chloride 112 H, Carbon Dioxide 27.0, Anion Gap 3 L, BUN 21 H, Creatinine 0.49 L, Estim Creat Clear Calc 138.59, Est GFR (MDRD) Af Amer 176, Est GFR (MDRD) Non-Af 145, BUN/Creatinine Ratio 42.5 H, Glucose 140 H, Calcium 7.9 L, Total Bilirubin 0.30, AST 25, ALT 14, Alkaline Phosphatase 61, Total Protein 5.7 L, Albumin 1.9 L, Globulin 3.8, Albumin/Globulin Ratio 0.5 L Micro: Microbiology 12/18/21 01:10 Blood Culture (Wb) - Anticubital Right Blood Culture - Preliminary No growth in 48 hours. 12/18/21 00:40 Blood Culture (Wb) - Anticubital Left Blood Culture - Preliminary No growth in 48 hours. 12/18/21 00:35 Sputum, Induced/Lukens Gram Stain - Final 12/18/21 00:35 Sputum, Induced/Lukens Respiratory Culture - Final Meth. resistant Staph. aureus 12/18/21 00:45 Nasal Secretion SARS-CoV-2 Antigen (Rapid) - Final Radiography Diagnostic Testing: Radiology Impression Chest X-Ray 12/20/21 07:30 IMPRESSION: 1. Pneumonia in the left lung greater than right lung. This is now obvious S progression when compared to 12/18/2021. 2. Distal rib position of OG tube, side hole is farther down inside the stomach. 3. No other additional findings or changes. Electronically Signed: Frank Wolff MD at 8:03 EDT Reading Location ID and State: [facility] / [place] , Service support , KUB X-Ray 12/20/21 11:45 IMPRESSION: Radiopaque wire overlying the symphysis pubis. This is the only radiopaque foreign body in the abdomen and pelvis. Okay to proceed with MRI if this radiopaque wire is removed. Electronically Signed: Frank Wolff MD at 12:40 EDT , Brain MRI 12/20/21 14:20 IMPRESSION: Normal unenhanced and enhanced MRI of the brain. Electronically Signed: Kavon Pena MD at 16:08 EDT , Physical Exam Narrative GENERAL: Unresponsive on the vent HEENT: Atraumatic; normocephalic EYES; Anicteric, Normal Conjunctiva NECK; supple, normal thyroid, RESPIRATORY: Diminished to auscultation CARDIOVASCULAR: Regular S1 S2, GI: soft, normoactive bowel sounds, : No Renal angle tenderness; EXTREMITIES: No edema, no clubbing, MUSCULOSKELETAL: no muscle wasting NEURO: Unresponsive on the vent SKIN: Tattoos on all extremities Assessment & Plan Assessment/Plan (1) Respiratory acidosis: (2) Aspiration into lower respiratory tract: (3) Cardiopulmonary arrest: (4) Respiratory failure: (5) Illicit drug use: (6) Lactic acidosis: (7) Airway intubation performed without difficulty: (8) Aspiration into airway: (9) Cellulitis of leg, left: (10) Drug overdose: PLAN: Plan Patient is a 41-year-old lady with history of polysubstance dependence who was found unresponsive by the boyfriend. CPR was apparently started on the field prior to EMS arriving. Patient apparently aspirated was being resuscitated. Patient was intubated and subsequently admitted to the intensive care unit for further management 1. Acute hypoxic respiratory failure ? Secondary to drug overdose complicated by aspiration pneumonia. Patient was placed on the vent admitted to the intensive care unit consult placed to pulmonary/critical care for vent management - 12/19/2021 Patient seen remains sedated on the vent. Apparently failed her weaning trial. Patient had low-grade fever was given Tylenol without much effect. Subsequent vent management deferred to pulmonary medicine - 12/20/2021 patient seen remains on the vent. Nursing report overnight reviewed. Patient sputum cultures obtained on admission so far positive for staphylococcal aureus final identification and sensitivities pending. Vancomycin added to patient's therapy ? Patient remains on the vent. Her sedation has been weaned off patient however is still unresponsive consult has been placed to teleneurology 2. Cardiopulmonary arrest ? Patient was successfully resuscitated using ACLS 3. Drug overdose ? Drug screen in the ED showed amphetamines, MDMA and cannabinoids. 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 MRSA pneumonia ? Patient started on Unasyn. ? 12/19/2021 patient continues to spike fever, Culture still pending -12/20/2021 patient seen remains on the vent. Nursing report overnight reviewed. Patient sputum cultures obtained on admission so far positive for staphylococcal aureus final identification and sensitivities pending. Vancomycin added to patient's therapy ?12/21/2021 patient sputum cultures came back positive for MRSA patient has been started on vancomycin the day prior 5. Elevated D-dimer ? Possibly related to above however ordered bilateral venous duplex as well as CTA to rule out VTE 6. DVT prophylaxis ? Patient is on enoxaparin 7. Leukocytosis ? Secondary to suspected aspiration pneumonia patient is on antibiotics management as discussed above 8. Hypokalemia ? Corrected per protocol, repeat labs ordered for a.m. Charges/Coding Visit Charges Inpatient E&M: 62004 [facility] Hosp L3
--- NOTE | 2021-12-21 09:32 | TELEMED_ITS ---
SOC Telemed has confirmed receipt of a request for visit. This document confirms receipt of the order initiating the consult. To find the results of the consultation, please view the patient's reports for the scanned Telemed Consult.
--- NOTE | 2021-12-21 09:54 | CASEMGMT ---
Social Work ROLAN reviewed EMR and there is no Health Care POA on file. Phone call placed to pt Ravin Sofia [phone] and left VM requesting return call. Phone call to pt son Edgardo Sofia [phone] and spoke with son regarding medical decision maker. Edgardo states that he does not believe pt has a health care POA and confirms that pt is but still legally to Ravin Sofia. Edgardo also confirms Pt has two sons who are over 18, himself and Elliot Sofia. Edgardo does not have a phone number for Elliot. ROLAN inquired who Chester Sexton is as he is listed on the demo sheet and Edgardo states, I have no idea. ROLAN explained to Edgardo that Legal medical decision maker will be Ravin and secondary will be Edgardo. Edgardo agreeable to this. ROLAN will update Ravin when he returns call. Legal Decision Makers: 1. Ravin Sofia, 2. Edgardo Sofia, son. Demographics updated. RBAD Guerrero
[2021-12-21] MEDS: Famotidine 20 MG Tablet GT (10:02)
[2021-12-21] MEDS: Senna/Docusate Sodium 1 Tablet 2 TABLET GT ×2 (10:03→21:30)
[2021-12-21] MEDS: Chlorhexidine 15 ML PO ×2 (10:03→21:31)
[2021-12-21] MEDS: Enoxaparin 40 MG/0.4 ML Syringe SC (10:03)
[2021-12-21] MEDS: Vital AF 1.2 Cal Liquid 1,000 ML 60 ML GT (10:09)
[2021-12-21] MEDS: Potassium Chloride 10mEq/100mL 10 MEQ/100 ML IV.SOLN. 100 MEQ IV BOLUS ×4 (11:05→14:01)
[2021-12-21] MEDS: Furosemide 40 MG/4 ML Vial IV ×2 (11:05→17:36)
[2021-12-21 11:06] LABS: BNP,B-Type NATRIURETIC PEPTIDE 38.2 pg/mL (0-100)
[2021-12-21 11:14] LABS: Thyroid Stim Hormone (TSH) 0.64 uIU/mL (0.358-3.74)
--- NOTE | 2021-12-21 12:00 | EKG12_ITS ---
Test Reason : EKG CHANGE Blood Pressure : / mmHG Vent. Rate : 113 BPM Atrial Rate : 113 BPM P-R Int : 132 ms QRS Dur : 086 ms QT Int : 304 ms P-R-T Axes : 076 089 062 degrees QTc Int : 416 ms Sinus tachycardia Otherwise normal ECG When compared with ECG of 18-DEC-2021 03:30, ST now depressed in Lateral leads Confirmed by PATIENCE ZACARIAS, MARIANN ([id number]), film and video editor ERNESTO GARDNER ([id number]) on 12/23/2021 7:21:17 AM Referred By: ARI Confirmed By:MARIANN MORIN MD
[2021-12-21 12:27] LABS: Anion Gap 6 (5-15); BUN 19 mg/dL (7-18); BUN/Creat Ratio 34.5 RATIO (10-20); Calcium,Total 8.6 mg/dL (8.5-10.1); Chloride 108 mmol/L (98-107); Creatinine, Serum 0.55 mg/dL (0.55-1.02); EST Glomerular Filtration Rate 128 mL/min (>60); Est Glom Filt Rate - Afr Amer 155 mL/min (>60); Estimated Creatinine Clearance 123.47 ml/min; Glucose 119 mg/dL (74-106); Magnesium 1.7 mg/dL (1.6-2.6); Phosphorus 1.3 mg/dL (2.5-4.9); Potassium 3.5 mmol/L (3.5-5.1); Sodium Level 142 mmol/L (136-145)
[2021-12-21] MEDS: 0.9% Saline Lock 10 ML Syringe IV (17:36)
[2021-12-22] VITALS (41 sets, daily range): BP systolic 111–152; BP diastolic 72–106; PULSE 86–114; RESP 13–26; TEMP 37.8–38.4; O2SAT 87–100
[2021-12-22] MEDS: LORazepam 2 MG/ML Syringe IV (02:16)
--- NOTE | 2021-12-22 02:20 | PCM.HOSP.N ---
Hospitalist Note Called by the ICU nursing staff as patient developed seizure activity. Reported to have approximately 4 minutes of seizure activity. Ativan 2 mg given and this caused cessation of seizure activity. Patient was loaded with Keppra 1000 mg x 1 dose then Keppra was ordered 1000 mg twice daily. Stat EEG was ordered as well.
--- NOTE | 2021-12-22 02:26 | NURSING ---
0213 this RN noticed pt was tachycardic and saw she was having seizure activity. Paged Dr. Ag, see orders. 0216 2mg IV ativan given. 0217 pt stopped seizing.
[2021-12-22] MEDS: Ipratropium/Albuterol Sulfate 3 ML AMPUL.NEB INHALATION ×6 (02:30→23:10)
[2021-12-22] MEDS: levETIRAcetam IV 1,000 MG/100 ML BAG 400 MG IV ×3 (02:47→21:00)
[2021-12-22] MEDS: 0.9% Saline Lock 10 ML Syringe IV ×2 (02:49→09:18)
[2021-12-22] MEDS: Vital AF 1.2 Cal Liquid 1,000 ML 60 ML GT ×2 (03:00→19:41)
[2021-12-22] MEDS: Carboxymethylcellulose sodium gel dropperette 1 EACH EACH EYE ×3 (05:46→21:01)
--- NOTE | 2021-12-22 06:38 | PN.CC_ITS ---
Assessment & Plan Assessment/Plan (1) Aspiration into lower respiratory tract: PLAN: Plan RECOMMENDATIONS: 1. Continue assist-control mode mechanical ventilation. Wean PEEP and FiO2 as tolerated. 2. Minimize sedation as tolerated. 3. Obtain follow-up EEG and neurology consultation. 4. Continue seizure precautions along with Keppra and as needed Ativan. 5. Continue antimicrobials as ordered. 6. Continue tube feeds as tolerated. 7. Continue appropriate DVT and GI prophylaxis. 8. Continue bowel regimen as ordered. IMPRESSIONS: 1. Acute combined respiratory failure secondary to illicit drug overdose The patient was found unresponsive in the setting of a history of polysubstance abuse with concern for acute overdose. She did experience a PEA cardiac arrest event with successful ROSC. At the present time, plan to continue invasive mechanical ventilatory support. Continue to wean FiO2 and PEEP to maintain oxygen saturations at or above 90%. Continue antimicrobials to cover for aspiration. Continue attempts at volume optimization with IV diuretic therapy, as tolerated by hemodynamics and renal function. 2. Encephalopathy with new onset seizure activity. Continue supportive measures including invasive mechanical ventilatory support. Initial MRI brain was unremarkable. Recommend obtaining follow-up EEG this morning. Follow-up neurology consultation will be obtained. The patient may ultimately require transfer to a tertiary care facility for continuous EEG monitoring. Continue seizure precautions along with Keppra and as needed Ativan. 3. Status post PEA cardiac arrest The patient's cardiac arrest was likely precipitated by hypoxia in the setting of #1. Echocardiogram was unrevealing. 4. Acute kidney injury Improved. Likely prerenal in etiology in the setting of #1 and 3. Continue supportive measures as noted above. Continue to monitor urine output. No current indication for renal replacement therapy. 5. History of polysubstance abuse Complicates care, management, recovery and prognosis. Continue supportive measures as noted above. Continue tube feeds as tolerated. TIME: 40 minutes of critical care time, independent of procedures, was spent addressing the patient's acute combined respiratory failure, illicit drug overdose, encephalopathy, new onset seizures, status post PEA cardiac arrest, acute kidney injury, review of all data and collaboration with the care team. Subjective Subjective The patient was seen and examined at the bedside this morning. Events from the last 24 hours have been reviewed. The patient currently has a low-grade fever but remains otherwise hemodynamically stable. She remains on assist control mode mechanical ventilation with an FiO2 requirement of 35% and PEEP of 5. Last night, the patient was restarted on fentanyl due to progressive tachypnea and tachycardia. Unfortunately, at 1 point overnight, the patient experienced a full-blown generalized tonic-clonic seizure, which was medically managed with Ativan. The patient was also started on Keppra. The patient is currently documented to be overall net +11 L for the hospitalization. Objective Data Objective Data The patient's most recent lab work, culture data and imaging studies have all be en personally reviewed. Surface echocardiogram demonstrated normal LV size and function with an ejection fraction of 55%. Lower extremity Doppler showed no evidence for DVT. Sputum culture dated December 18 was positive for MRSA. Vital Signs: Vital Signs Temp Pulse Resp BP Pulse Ox O2 Del Method O2 Flow Rate 100.8 F H 94 18 113/72 95 Mechanical Ventilator 30 12/22/21 04:00 12/22/21 06:00 12/22/21 06:00 12/22/21 06:00 12/22/21 06:00 12/22/21 06:00 12/19/21 19:00 FiO2 35 12/22/21 06:00 Oxygen Flow Rate (L/min) 30 Oxygen Delivery Method Mechanical Ventilator Weight: 152 lb 12.485 oz Body Mass Index (BMI) 22.0 Intake & Output: Intake and Output for Last 24 Hours 12/20/21 12/21/21 12/22/21 23:59 23:59 23:59 Intake Total 4817.53 / 5322.46 3917.80 / 3920.30 1317.08 / 1317.08 Output Total 600 / 925 5500 / 5775 730 / 730 Balance 4217.53 / 4397.46 -1582.20 / -1854.70 587.08 / 587.08 Lab / Micro Data Attestation: I reviewed the patient's lab results. Result Diagrams: 12/22/21 03:46 12/22/21 03:46 Labs: Laboratory Results - last 24 hr 12/21/21 10:25: TSH 0.64 12/21/21 10:25: Ammonia 32.0, B-Natriuretic Peptide Cancelled 12/21/21 10:25: B-Natriuretic Peptide 38.2 12/21/21 12:08: Sodium 142, Potassium 3.5, Chloride 108 H, Carbon Dioxide 28.0, Anion Gap 6, BUN 19 H, Creatinine 0.55, Estim Creat Clear Calc 123.47, Est GFR (MDRD) Af Amer 155, Est GFR (MDRD) Non-Af 128, BUN/Creatinine Ratio 34.5 H, Glucose 119 H, Calcium 8.6, Phosphorus 1.3 L, Magnesium 1.7 Micro: Microbiology 12/18/21 01:10 Blood Culture (Wb) - Anticubital Right Blood Culture - Preliminary No growth in 48 hours. 12/18/21 00:40 Blood Culture (Wb) - Anticubital Left Blood Culture - Preliminary No growth in 48 hours. 12/18/21 00:35 Sputum, Induced/Lukens Gram Stain - Final 12/18/21 00:35 Sputum, Induced/Lukens Respiratory Culture - Final Meth. resistant Staph. aureus 12/18/21 00:45 Nasal Secretion SARS-CoV-2 Antigen (Rapid) - Final Radiography Diagnostic Testing: Radiology Impression Chest X-Ray 12/20/21 07:30 IMPRESSION: 1. Pneumonia in the left lung greater than right lung. This is now obvious S progression when compared to 12/18/2021. 2. Distal rib position of OG tube, side hole is farther down inside the stomach. 3. No other additional findings or changes. Electronically Signed: Frank Wolff MD at 8:03 EDT , KUB X-Ray 12/20/21 11:45 IMPRESSION: Radiopaque wire overlying the symphysis pubis. This is the only radiopaque foreign body in the abdomen and pelvis. Okay to proceed with MRI if this radiopaque wire is removed. Electronically Signed: Frank Wolff MD at 12:40 EDT , Brain MRI 12/20/21 14:20 IMPRESSION: Normal unenhanced and enhanced MRI of the brain. Electronically Signed: Kavon Pena MD at 16:08 EDT , Physical Exam Const Constitutional Narrative: Currently unresponsive. No generalized seizure activity present. General Appearance: intubated and patient mechanically ventilated HEENT normocephalic and head/scalp atraumatic Mouth: endotracheal tube in place and OG tube in place Eyes conjunctivae normal Eyes Narrative: Right lateral eye deviation Neck supple General: trachea midline Chest inspection of chest normal Resp Auscultation: rhonchi, wheezes and diminished lung sounds Cardio S1 normal heart sound and S2 normal heart sound Rate: tachycardic GI normal to inspection, nondistended, normoactive bowel sounds Extremity General Extremity: edema; Negative for clubbing Skin no rashes or lesions noted Neuro Neuro Narrative: Currently nonresponsive. Charges/Coding Procedures Hospitalists Procedures: 12840 Critial Care 1st Hr
[2021-12-22 06:48] LABS: Absolute Lymphocyte Count 1.14 X10^3/uL (0.83-4.51); Absolute Neutrophil Count 7.1 X10^3/uL (2.0-7.7); Basophil# 0.07 X10^3/uL; Basophil% 0.7 % (0-1); Eosinophil# 0.13 X10^3/uL; Eosinophils% 1.4 % (0-5); Hematocrit 36.7 % (37-47); Hemoglobin 11.6 g/dL (12.0-15.0); Lymphocyte # 1.14 X10^3/ul (0.83-4.51); Mean Corp Hgb Conc 31.6 g/dL (32-36); Mean Corpuscular Hgb 30.8 pg (27.0-32.0); Mean Corpuscular Volume 97.3 fL (81-99); Mean Platelet Vol. 10.7 fl (6.2-12.0); Monocyte# 1.03 X10^3/uL; Monocyte% 10.9 % (0-10); NRBC Flagged by Analyzer 0 % (0-5); Neutrophil # 7.06 X10^3/uL (2.7-7.7); Neutrophil % 74.4 % (47-70); Platelet Count 358 K/mm3 (150-450); RBC Distribution Width CV 14.6 % (11.6-14.6); RBC Distribution Width SD 51.9 fl (35.1-43.9); Red Blood Count 3.77 M/mm3 (4.2-5.4); White Blood Count 9.5 K/mm3 (4.4-11.0)
[2021-12-22 07:06] LABS: ALB/GLOB Ratio 0.4 RATIO (0.9-2.4); AST(SGOT) 31 U/L (15-37); Alanine Aminotransfer ALT/SGPT 15 U/L (13-56); Alkaline Phosphatase 80 U/L (45-117); Anion Gap 5 (5-15); BUN 23 mg/dL (7-18); Calcium,Total 8.5 mg/dL (8.5-10.1); Chloride 107 mmol/L (98-107); Creatinine, Serum 0.55 mg/dL (0.55-1.02); EST Glomerular Filtration Rate 129 mL/min (>60); Est Glom Filt Rate - Afr Amer 156 mL/min (>60); Estimated Creatinine Clearance 123.47 ml/min; Globulin 4.6 g/dL (2.2-4.2); Glucose 104 mg/dL (74-106); Phosphorus 2.5 mg/dL (2.5-4.9); Protein, Total 6.6 g/dL (6.4-8.2); Sodium Level 142 mmol/L (136-145)
--- NOTE | 2021-12-22 07:15 | PN.HOSP_ITS ---
Subjective Subjective Patient was reported to have developed seizures during the evening. Was loaded with Keppra. Consult has been placed to telemetry neuro the day prior. Repeat EEG ordered by telemetry neuro Objective Data Objective Data Vital Signs: Vital Signs Temp Pulse Resp BP Pulse Ox O2 Del Method O2 Flow Rate 100.1 F H 96 16 127/87 H 99 Mechanical Ventilator 30 12/22/21 07:00 12/22/21 07:00 12/22/21 07:00 12/22/21 07:00 12/22/21 07:00 12/22/21 07:00 12/19/21 19:00 FiO2 30 12/22/21 07:00 Oxygen Flow Rate (L/min) 30 Oxygen Delivery Method Mechanical Ventilator Weight: 69.3 kg Body Mass Index (BMI) 22.0 Intake & Output: Intake and Output for Last 24 Hours 12/20/21 12/21/21 12/22/21 23:59 23:59 23:59 Intake Total 4817.53 / 5322.46 3917.80 / 3920.30 1467.75 / 1467.75 Output Total 600 / 925 5500 / 5775 730 / 730 Balance 4217.53 / 4397.46 -1582.20 / -1854.70 737.75 / 737.75 Lab / Micro Data Result Diagrams: 12/22/21 03:46 12/22/21 03:46 Labs: Laboratory Results - last 24 hr 12/21/21 10:25: TSH 0.64 12/21/21 10:25: Ammonia 32.0, B-Natriuretic Peptide Cancelled 12/21/21 10:25: B-Natriuretic Peptide 38.2 12/21/21 12:08: Sodium 142, Potassium 3.5, Chloride 108 H, Carbon Dioxide 28.0, Anion Gap 6, BUN 19 H, Creatinine 0.55, Estim Creat Clear Calc 123.47, Est GFR (MDRD) Af Amer 155, Est GFR (MDRD) Non-Af 128, BUN/Creatinine Ratio 34.5 H, Glucose 119 H, Calcium 8.6, Phosphorus 1.3 L, Magnesium 1.7 12/22/21 03:46: WBC 9.5, RBC 3.77 L, Hgb 11.6 L, Hct 36.7 L, MCV 97.3, MCH 30.8, MCHC 31.6 L, RDW Std Deviation 51.9 H, RDW Coeff of Monika 14.6, Plt Count 358, MPV 10.7, Immature Gran % (Auto) 0.600, Neut % (Auto) 74.4 H, Lymph % (Auto) 12.0 L, [place] % (Auto) 10.9 H, Eos % (Auto) 1.4, Baso % (Auto) 0.7, Absolute Neuts (auto) 7.1, Absolute Lymphs (auto) 1.14, Nucleated RBC % 0 12/22/21 03:46: Sodium 142, Potassium 3.0 L, Chloride 107, Carbon Dioxide 30.0, Anion Gap 5, BUN 23 H, Creatinine 0.55, Estim Creat Clear Calc 123.47, Est GFR (MDRD) Af Amer 156, Est GFR (MDRD) Non-Af 129, BUN/Creatinine Ratio 42.0 H, Glucose 104, Calcium 8.5, Phosphorus 2.5, Magnesium 2.0, Total Bilirubin 0.30, AST 31, ALT 15, Alkaline Phosphatase 80, Total Protein 6.6, Albumin 2.0 L, Globulin 4.6 H, Albumin/Globulin Ratio 0.4 L Micro: Microbiology 12/18/21 01:10 Blood Culture (Wb) - Anticubital Right Blood Culture - Preliminary No growth in 48 hours. 12/18/21 00:40 Blood Culture (Wb) - Anticubital Left Blood Culture - Preliminary No growth in 48 hours. 12/18/21 00:35 Sputum, Induced/Lukens Gram Stain - Final 12/18/21 00:35 Sputum, Induced/Lukens Respiratory Culture - Final Meth. resistant Staph. aureus 12/18/21 00:45 Nasal Secretion SARS-CoV-2 Antigen (Rapid) - Final Physical Exam Narrative GENERAL: Unresponsive on the vent HEENT: Atraumatic; normocephalic EYES; Anicteric, Normal Conjunctiva NECK; supple, normal thyroid, RESPIRATORY: Diminished to auscultation CARDIOVASCULAR:? Regular S1 S2, GI:? soft, normoactive bowel sounds, : No Renal angle tenderness; EXTREMITIES:? No edema, no clubbing, MUSCULOSKELETAL:? no muscle wasting NEURO: Unresponsive on the vent SKIN: Tattoos on all extremities Assessment & Plan Assessment/Plan (1) Respiratory acidosis: (2) Aspiration into lower respiratory tract: (3) Cardiopulmonary arrest: (4) Respiratory failure: (5) Illicit drug use: (6) Lactic acidosis: (7) Airway intubation performed without difficulty: (8) Aspiration into airway: (9) Cellulitis of leg, left: (10) Drug overdose: PLAN: Plan Patient is a 41-year-old lady with history of polysubstance dependence who was found unresponsive by the boyfriend.? CPR was apparently started on the field prior to EMS arriving.? Patient apparently aspirated was being resuscitated.? Patient was intubated and subsequently admitted to the intensive care unit for further management 1.? Acute hypoxic respiratory failure ? Secondary to drug overdose complicated by aspiration pneumonia.? Patient was placed on the vent admitted to the intensive care unit consult placed to puljuliet sigala/critical care for vent management - 12/19/2021 Patient seen remains sedated on the vent.? Apparently failed her weaning trial.? Patient had low-grade fever was given Tylenol without much effect.? Subsequent vent management deferred to pulmonary medicine - 12/20/2021 patient seen remains on the vent.? Nursing report overnight reviewed.? Patient sputum cultures obtained on admission so far positive for staphylococcal aureus final identification and sensitivities pending.? Vancomycin added to patient's therapy ? Patient remains on the vent.? Her sedation has been weaned off patient however is still unresponsive consult has been placed to teleneurology 2. New onset seizure ? Patient was loaded with [facility] consultation placed to telemetry neuro. Patient had an EEG performed the day prior repeat EEG ordered following development of patient new onset seizure 3.? MRSA pneumonia ? Patient started on Unasyn. ? 12/19/2021 patient continues to spike fever, Culture still pending -12/20/2021 patient seen remains on the vent.? Nursing report overnight reviewed.? Patient sputum cultures obtained on admission so far positive for staphylococcal aureus final identification and sensitivities pending.? Vancomycin added to patient's therapy ?12/21/2021 patient sputum cultures came back positive for MRSA patient has been started on vancomycin the day prior ? 01/01/2022 CT of the chest obtained demonstrated left upper lobe consolidation with patchy infiltrate in both lower lobes. 4.? Cardiopulmonary arrest ? Patient was successfully resuscitated using ACLS 5.? Elevated D-dimer ? Possibly related to above however ordered bilateral venous duplex as well as CTA to rule out VTE ? CTA and venous duplex negative for VTE 6.? Hypokalemia ? Corrected per protocol ? Repeat labs ordered for a.m. 7.? Drug overdose ? Drug screen in the ED showed amphetamines, MDMA and cannabinoids.? Plan is to executive assistant to general counsel patient on cessation once she is medically stable and has been weaned on the vent 8. DVT prophylaxis ? MALCOM Huertas Charges/Coding Visit Charges Inpatient E&M: 57208 Subs Hosp L3
[2021-12-22] MEDS: Chlorhexidine 15 ML PO ×2 (08:40→21:01)
[2021-12-22] MEDS: Potassium Chloride Oral Soln 20 MEQ/15 ML UDC 40 MEQ PO (08:40)
[2021-12-22] MEDS: Potassium Chloride 10mEq/100mL 10 MEQ/100 ML IV.SOLN. 100 MEQ IV BOLUS ×4 (08:40→12:44)
[2021-12-22] MEDS: Senna/Docusate Sodium 1 Tablet 2 TABLET GT ×2 (08:41→21:01)
[2021-12-22] MEDS: Famotidine 20 MG Tablet GT (08:41)
[2021-12-22] MEDS: Enoxaparin 40 MG/0.4 ML Syringe SC (08:41)
--- NOTE | 2021-12-22 09:07 | CT_ITS ---
STUDY: CTA HEAD AND NECK WITH CONTRAST REASON FOR EXAM: Female, 41 years old. Encephalopathy, new seizures RADIATION DOSAGE (If Supplied By Facility): CTDIvol = ( 29.05 ) mGy, DLP = ( 1474.10 ) mGycm TECHNIQUE: CT angiography was performed with a multi-detector CT scanner. Data acquisition was obtained from the skull base through the vertex following intravenous administration of IV 100mL Isovue-370. MIP images were reconstructed from the axial data set. Post-processing of the angiographic images was performed, with multiplanar reformation and 3D reconstruction. Individualized dose optimization techniques were used for this CT. COMPARISON: No relevant priors. FINDINGS: An endotracheal tube is seen within the trachea. An orogastric tube is seen within the esophagus. Normal bilateral petrous carotid arteries. Normal right cavernous carotid artery with a normal supraclinoid bifurcation. Normal left cavernous carotid artery with a normal supraclinoid bifurcation. Normal right A1 segments of the anterior cerebral artery. Normal left A1 segments of the anterior cerebral artery. Normal intact anterior communicating artery (ACOM). Normal bilateral A2 segments of the anterior cerebral arteries. Normal right M1 and M2 segments of the middle cerebral arteries, with a normal M1 bifurcation. Normal left M1 and M2 segments of the middle cerebral arteries, with a normal M1 bifurcation. Normal right posterior communicating artery (PCOM). Normal left posterior communicating artery (PCOM). Normal bilateral vertebral arteries. Normal basilar artery with a normal basilar bifurcation. The visualized bilateral superior cerebellar (SCA) arteries are normal. Normal bilateral P1, P2 and visualized P3 segments of the posterior cerebral arteries. There is no demonstrated aneurysm of the [place] of [place]. There is no demonstrated abnormality of the visualized brain. AORTIC ARCH: Normal visualized aortic arch. Normal origins of the brachiocephalic, left common carotid, and left subclavian arteries. RIGHT CAROTID ARTERIES: Normal right common carotid artery (CCA). Normal right common carotid bulb. Normal origin of the right internal carotid (ICA) artery without a hemodynamically significant stenosis. Normal visualized cervical portion of the right internal carotid artery. Normal origin of the right external carotid artery (ECA). LEFT CAROTID ARTERIES: Normal left common carotid artery (CCA). Normal left common carotid bulb. Normal origin of the left internal carotid (ICA) artery without a hemodynamically significant stenosis. Normal visualized cervical portion of the left internal carotid artery. Normal origin of the left external carotid artery (ECA). VERTEBRAL ARTERIES: Normal bilateral vertebral arteries. CT/STROKE CTA Head AND Neck W/Con IMPRESSION: Normal CTA Head and neck with contrast. N.B. : The above Results were Read Back by Lee Muir MD to VARSHA CHAPMAN and understanding confirmed on 12/22/2021 10:45:52 (ET). Electronically Signed: Lee Muir MD at 10:46 EDT ,
--- NOTE | 2021-12-22 09:15 | CASEMGMT ---
RN CM NOTE: Pt has straight FLAQUITA and can transfer to any hospital of choice if transfer is recommended. Rona HERNÁNDEZN RN CM
[2021-12-22] MEDS: Furosemide 40 MG/4 ML Vial IV ×2 (09:18→17:28)
[2021-12-22] MEDS: Acetaminophen 650 MG/20 ML UDC NG (23:58)
[2021-12-23] VITALS (22 sets, daily range): BP systolic 100–171; BP diastolic 68–103; PULSE 80–132; RESP 12–37; TEMP 37.3–38.4; O2SAT 89–97
[2021-12-23 00:56] LABS: Vancomycin, Trough Level 8.7 ug/mL (5.0-15.0)
[2021-12-23] MEDS: 0.9% Saline Lock 10 ML Syringe IV (01:24)
[2021-12-23] MEDS: Ipratropium/Albuterol Sulfate 3 ML AMPUL.NEB INHALATION ×3 (02:25→11:20)
[2021-12-23 03:14] LABS: Absolute Lymphocyte Count 1.35 X10^3/uL (0.83-4.51); Absolute Neutrophil Count 6.3 X10^3/uL (2.0-7.7); Basophil# 0.04 X10^3/uL; Basophil% 0.4 % (0-1); Eosinophil# 0.35 X10^3/uL; Eosinophils% 3.7 % (0-5); Hematocrit 35.6 % (37-47); Hemoglobin 11.3 g/dL (12.0-15.0); Lymphocyte # 1.35 X10^3/ul (0.83-4.51); Lymphocyte % 14.5 % (19-41); Mean Corp Hgb Conc 31.7 g/dL (32-36); Mean Corpuscular Hgb 30.9 pg (27.0-32.0); Mean Corpuscular Volume 97.3 fL (81-99); Mean Platelet Vol. 9.9 fl (6.2-12.0); Monocyte# 1.18 X10^3/uL; Monocyte% 12.6 % (0-10); NRBC Flagged by Analyzer 0 % (0-5); Neutrophil # 6.34 X10^3/uL (2.7-7.7); Neutrophil % 67.9 % (47-70); Platelet Count 325 K/mm3 (150-450); RBC Distribution Width CV 14.5 % (11.6-14.6); RBC Distribution Width SD 52.3 fl (35.1-43.9); Red Blood Count 3.66 M/mm3 (4.2-5.4); White Blood Count 9.3 K/mm3 (4.4-11.0)
[2021-12-23 03:34] LABS: BUN 24 mg/dL (7-18); Creatinine, Serum 0.48 mg/dL (0.55-1.02); EST Glomerular Filtration Rate 151 mL/min (>60); Estimated Creatinine Clearance 141.47 ml/min; Glucose 129 mg/dL (74-106)
[2021-12-23 03:35] LABS: Anion Gap 5 (5-15); BUN/Creat Ratio 50.3 RATIO (10-20); Calcium,Total 8.5 mg/dL (8.5-10.1); Chloride 105 mmol/L (98-107); Est Glom Filt Rate - Afr Amer 183 mL/min (>60); Magnesium 1.9 mg/dL (1.6-2.6); Phosphorus 3.2 mg/dL (2.5-4.9); Potassium 3.5 mmol/L (3.5-5.1); Sodium Level 141 mmol/L (136-145)
--- NOTE | 2021-12-23 04:22 | PCM.RX.CS ---
Consult Pharmacy has been consulted to manage selected antiobiotic: Vancomycin Type of Consult: Follow-up Labs: Sodium 141 mmol/L (136-145) 12/23/21 03:08 Potassium 3.5 mmol/L (3.5-5.1) 12/23/21 03:08 Chloride 105 mmol/L (98-107) 12/23/21 03:08 Carbon Dioxide 31.0 mmol/L (21.0-32.0) 12/23/21 03:08 Anion Gap 5 (5-15) 12/23/21 03:08 BUN 24 mg/dL (7-18) H 12/23/21 03:08 Creatinine 0.48 mg/dL (0.55-1.02) L 12/23/21 03:08 Est GFR (MDRD) Af Amer 183 mL/min (>60) 12/23/21 03:08 Est GFR (MDRD) Non-Af 151 mL/min (>60) 12/23/21 03:08 BUN/Creatinine Ratio 50.3 RATIO (10-20) H 12/23/21 03:08 Glucose 129 mg/dL (74-106) H 12/23/21 03:08 Vancomycin Trough 8.7 ug/mL (5.0-15.0) 12/23/21 00:12 Microbiology: Microbiology 12/18/21 01:10 Blood Culture (Wb) - Anticubital Right Blood Culture - Preliminary No growth in 48 hours. 12/18/21 00:40 Blood Culture (Wb) - Anticubital Left Blood Culture - Preliminary No growth in 48 hours. 12/18/21 00:35 Sputum, Induced/Lukens Gram Stain - Final 12/18/21 00:35 Sputum, Induced/Lukens Respiratory Culture - Final Meth. resistant Staph. aureus 12/18/21 00:45 Nasal Secretion SARS-CoV-2 Antigen (Rapid) - Final Goal Trough: 10-15 mcg/mL Pharmacy Plan for Drug Dosing: Pharmacy Service will continue to monitor and adjust dosing as required. TROUGH 8.7 AT 12 HOURS. INCREASE TO 1750 Q12 AND FOLLOW UP TROUGH PRIOR TO 4TH DOSE Follow-Up Labs: Trough Vancomycin Labs to be done on [date and time ordered]: 12/25 @ 0000
[2021-12-23] MEDS: Carboxymethylcellulose sodium gel dropperette 1 EACH EACH EYE (05:11)
[2021-12-23] MEDS: CHLORHEXIDINE GLUC 2% CLOTH 1 EACH TOWELETTE TOPICAL (05:52)
--- NOTE | 2021-12-23 06:03 | PCM.PN.INT ---
Assessment & Plan Assessment/Plan (1) Aspiration into lower respiratory tract: PLAN: Plan RECOMMENDATIONS: 1. Continue assist-control mode mechanical ventilation. Wean PEEP and FiO2 as tolerated. 2. Minimize sedation as tolerated. 3. Obtain neurology follow-up today and await results of EEG. 4. Continue seizure precautions along with Keppra and as needed Ativan. 5. Continue antimicrobials as ordered. 6. Continue tube feeds as tolerated. 7. Continue appropriate DVT and GI prophylaxis. 8. Continue bowel regimen as ordered. IMPRESSIONS: 1. Acute combined respiratory failure secondary to illicit drug overdose The patient was found unresponsive in the setting of a history of polysubstance abuse with concern for acute overdose. She did experience a PEA cardiac arrest event with successful ROSC. At the present time, plan to continue invasive mechanical ventilatory support. Continue to wean FiO2 and PEEP to maintain oxygen saturations at or above 90%. Continue antimicrobials to cover for aspiration. Continue attempts at volume optimization with IV diuretic therapy, as tolerated by hemodynamics and renal function. 2. Encephalopathy with new onset seizure activity. Continue supportive measures including invasive mechanical ventilatory support. Initial MRI brain was unremarkable. Plan to continue Keppra and as needed Ativan, along with seizure precautions. Repeat EEG results are still pending. Recommend obtaining neurology follow-up today to determine if transfer to a tertiary care facility for continuous EEG monitoring is warranted. 3. Status post PEA cardiac arrest The patient's cardiac arrest was likely precipitated by hypoxia in the setting of #1. Echocardiogram was unrevealing. 4. Acute kidney injury Improved. Likely prerenal in etiology in the setting of #1 and 3. Continue supportive measures as noted above. Continue to monitor urine output. No current indication for renal replacement therapy. 5. History of polysubstance abuse Complicates care, management, recovery and prognosis. Continue supportive measures as noted above. Continue tube feeds as tolerated. TIME: 32 minutes of critical care time, independent of procedures, was spent addressing the patient's acute combined respiratory failure, illicit drug overdose, encephalopathy, new onset seizures, status post PEA cardiac arrest, acute kidney injury, review of all data and collaboration with the care team. Subjective Subjective The patient was seen and examined at the bedside this morning. Events from the last 24 hours have been reviewed. The patient is currently afebrile, hemodynamically stable and maintaining appropriate oxygen saturations on assist control mode of mechanical ventilation with an FiO2 requirement of 30% and PEEP of 5. The patient is documented to be overall net +8.8 L for the hospitalization. No overnight seizures were noted by the nursing staff. Objective Data Objective Data The patient's most recent lab work, culture data and imaging studies have all been personally reviewed. Surface echocardiogram demonstrated normal LV size and function with an ejection fraction of 55%. Lower extremity Doppler showed no evidence for DVT. Sputum culture dated December 18 was positive for MRSA. Vital Signs: Vital Signs Temp Pulse Resp BP Pulse Ox O2 Del Method O2 Flow Rate 99.8 F H 93 18 162/95 H 93 Mechanical Ventilator 30 12/23/21 06:00 12/23/21 06:00 12/23/21 06:00 12/23/21 06:00 12/23/21 06:00 12/23/21 06:00 12/19/21 19:00 FiO2 30 12/23/21 06:00 Oxygen Flow Rate (L/min) 30 Oxygen Delivery Method Mechanical Ventilator Weight: 143 lb 4.807 oz Body Mass Index (BMI) 22.0 Intake & Output: Intake and Output for Last 24 Hours 12/21/21 12/22/21 12/23/21 23:59 23:59 23:59 Intake Total 3917.80 / 3920.30 4425.51 / 4794.51 1391.00 / 1391.00 Output Total 5500 / 5775 6805 / 6805 550 / 550 Balance -1582.20 / -1854.70 -2379.49 / -2010.49 841.00 / 841.00 Lab / Micro Data Attestation: I reviewed the patient's lab results. Result Diagrams: 12/23/21 03:08 12/23/21 03:08 Labs: Laboratory Results - last 24 hr 12/22/21 03:46: WBC 9.5, RBC 3.77 L, Hgb 11.6 L, Hct 36.7 L, MCV 97.3, MCH 30.8, MCHC 31.6 L, RDW Std Deviation 51.9 H, RDW Coeff of Monika 14.6, Plt Count 358, MPV 10.7, Immature Gran % (Auto) 0.600, Neut % (Auto) 74.4 H, Lymph % (Auto) 12.0 L, [place] % (Auto) 10.9 H, Eos % (Auto) 1.4, Baso % (Auto) 0.7, Absolute Neuts (auto) 7.1, Absolute Lymphs (auto) 1.14, Nucleated RBC % 0 12/22/21 03:46: Sodium 142, Potassium 3.0 L, Chloride 107, Carbon Dioxide 30.0, Anion Gap 5, BUN 23 H, Creatinine 0.55, Estim Creat Clear Calc 123.47, Est GFR (MDRD) Af Amer 156, Est GFR (MDRD) Non-Af 129, BUN/Creatinine Ratio 42.0 H, Glucose 104, Calcium 8.5, Phosphorus 2.5, Magnesium 2.0, Total Bilirubin 0.30, AST 31, ALT 15, Alkaline Phosphatase 80, Total Protein 6.6, Albumin 2.0 L, Globulin 4.6 H, Albumin/Globulin Ratio 0.4 L 12/23/21 00:12: Vancomycin Trough 8.7 12/23/21 03:08: WBC 9.3, RBC 3.66 L, Hgb 11.3 L, Hct 35.6 L, MCV 97.3, MCH 30.9, MCHC 31.7 L, RDW Std Deviation 52.3 H, RDW Coeff of Monika 14.5, Plt Count 325, MPV 9.9, Immature Gran % (Auto) 0.900, Neut % (Auto) 67.9, Lymph % (Auto) 14.5 L, [place] % (Auto) 12.6 H, Eos % (Auto) 3.7, Baso % (Auto) 0.4, Absolute Neuts (auto) 6.3, Absolute Lymphs (auto) 1.35, Nucleated RBC % 0 12/23/21 03:08: Sodium 141, Potassium 3.5, Chloride 105, Carbon Dioxide 31.0, Anion Gap 5, BUN 24 H, Creatinine 0.48 L, Estim Creat Clear Calc 141.47, Est GFR (MDRD) Af Amer 183, Est GFR (MDRD) Non-Af 151, BUN/Creatinine Ratio 50.3 H, Glucose 129 H, Calcium 8.5, Phosphorus 3.2, Magnesium 1.9 Micro: Microbiology 12/18/21 01:10 Blood Culture (Wb) - Anticubital Right Blood Culture - Preliminary No growth in 48 hours. 12/18/21 00:40 Blood Culture (Wb) - Anticubital Left Blood Culture - Preliminary No growth in 48 hours. 12/18/21 00:35 Sputum, Induced/Lukens Gram Stain - Final 12/18/21 00:35 Sputum, Induced/Lukens Respiratory Culture - Final Meth. resistant Staph. aureus 12/18/21 00:45 Nasal Secretion SARS-CoV-2 Antigen (Rapid) - Final Radiography Diagnostic Testing: Radiology Impression Head/Neck CTA 12/22/21 09:07 IMPRESSION: Normal CTA Head and neck with contrast. N.B. : The above Results were Read Back by Lee Muir MD to VARSHA CHAPMAN and understanding confirmed on 12/22/2021 10:45:52 (ET). Electronically Signed: Lee Muir MD at 10:46 EDT , ADDENDUM: 12/22/21 1053 IMPRESSION: Normal CTA Head and neck with contrast. N.B. : The above Results were Read Back by Lee Muir MD to VARSHA CHAPMAN and understanding confirmed on 12/22/2021 10:45:52 (ET). Electronically Signed: Lee Muir MD at 10:46 EDT , Physical Exam Const Constitutional Narrative: The patient remains unresponsive on the ventilator. General Appearance: intubated and patient mechanically ventilated HEENT normocephalic and head/scalp atraumatic Mouth: endotracheal tube in place and OG tube in place Eyes PERRL and conjunctivae normal Neck supple General: trachea midline Chest inspection of chest normal Resp Auscultation: rhonchi and diminished lung sounds Cardio regular rate, regular rhythm, S1 normal heart sound and S2 normal heart sound GI normal to inspection, nondistended, normoactive bowel sounds Extremity General Extremity: edema; Negative for clubbing Skin no rashes or lesions noted Neuro Neuro Narrative: Currently nonresponsive. Charges/Coding Procedures Hospitalists Procedures: 75046 Critial Care 1st Hr
[2021-12-23] MEDS: LORazepam 2 MG/ML Syringe IV (08:37)
--- NOTE | 2021-12-23 08:51 | NURSING ---
Patient noted to have stiff arms and legs, teeth clenching and a rhythmic motion to her breathing resulting in tachypnea and hypoxia at 0805. Patient appeared agitated. Assessed patient and asked a second RN for her opinion and it was concluded that the patient was more than likely having a seizure. Ativan was obtained from [facility] [place] 2nd RN but by the time the ativan arrived the seizure stopped. It lasted approximately 5 min. At 0835 patient once again presented same symptoms and ativan was obtained from [facility] and administered. Seizure stopped and lasted approximately 2 min. Patient now resting comfortably with no signs of seizure activity noted.
[2021-12-23] MEDS: levETIRAcetam IV 1,000 MG/100 ML BAG 400 MG IV (09:31)
[2021-12-23] MEDS: Chlorhexidine 15 ML PO (09:32)
[2021-12-23] MEDS: Furosemide 40 MG/4 ML Vial IV (09:34)
[2021-12-23] MEDS: Enoxaparin 40 MG/0.4 ML Syringe SC (09:40)
[2021-12-23] MEDS: Senna/Docusate Sodium 1 Tablet 2 TABLET GT (09:41)
[2021-12-23] MEDS: Famotidine 20 MG Tablet GT (09:41)
--- NOTE | 2021-12-23 15:12 | DS.PCM_ITS ---
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 General / Pulmonary Medicine Routine Consulting Provider: Pulmonary Medicine jim Cordoba Reason for Consult: Vent management EMERGENT Consult: No MD Notified: Yes Date Notified: 12/18/21 Time Notified: 02: Method of Notification: Text Reason For Visit: OVERDOSE, RESPIRATORY FAILURE Diagnosis Discharge Diagnosis (1) Aspiration into lower respiratory tract: Status: Acute Code(s): T17.800A - Unspecified foreign body in other parts of respiratory tract causing asphyxiation, initial encounter Medications at Discharge Home Medications hydroxyzine pamoate 50 mg capsule (Vistaril) 50 mg PO TID PRN 04/21/16 paroxetine HCl 10 mg tablet 10 mg PO DAILY 04/21/16 quetiapine 200 mg tablet (Seroquel) 200 mg PO QHS 04/21/16 quetiapine 50 mg tablet (Seroquel) 50 mg PO TID 04/21/16 trazodone 100 mg tablet 100 mg PO QHS 04/22/16 amoxicillin 875 mg-potassium clavulanate 125 mg tablet 875 mg PO Q12H ##14 04/25/16 ketorolac 10 mg tablet 10 mg PO Q8H PRN pain ##20 04/25/16 clindamycin HCl 150 mg capsule 150 mg PO TID #21 caps 09/18/21 hydroxyzine pamoate 50 mg capsule (Vistaril) 50 mg PO TID #30 caps 09/18/21 aripiprazole 10 mg tablet (Abilify) 10 mg PO DAILY 12/18/21 escitalopram oxalate 10 mg tablet (Lexapro) 10 mg PO DAILY 12/18/21 Hospital Course Operations None Procedures 2-D Echocardiogram and Electroencephalogram Summary of Care Provided Minutes Spent on Discharge: 60 Hospital Course: Patient is a 41-year-old female with a past medical history as outlined who was admitted after being found unresponsive by bystanders. It was unclear how long she had been unresponsive for. EMS was called and she was found to be apneic and cyanotic with emesis. She was suctioned by EMS and bag and mask ventilation was started. She was given Narcan. Initially she was not pulseless but subsequently went into PEA [place] was started. Oral airway placed showed copious amounts of vomitus. She was given epinephrine and Narcan by the EMS and subsequently achieved ROSC. She was brought to the ED and was intubated and started on IV Zosyn for aspiration pneumonia. She was sedated with propofol and CT of the brain was negative. Urine tox showed amphetamines, MD and cannabinoids. She was admitted and managed for cardiopulmonary arrest and acute hypoxic respiratory failure due to likely drug overdose and aspiration pneumonia due to aspiration. She was admitted to the ICU and critical care was consulted. 2D echo done showed normal left ventricular size with normal left ventricular systolic function and EF of 55%. Hospital course was complicated by patient developing seizures and she was started on Keppra. SOC neurology was consulted. Patient kept on having seizures despite being given Keppra and Ativan so decision was made to transfer patient to a tertiary facility for inpatient neurology evaluation and for video EEG. She was accepted at [facility] and transferred on 12/23/2021 by [facility]. Patient was seen and examined prior to discharge. Patient was unresponsive and so unable to do review of systems. He remained intubated and sedated. Physical Exam Narrative GENERAL: Unresponsive on the vent HEENT: Atraumatic; normocephalic EYES; Anicteric, Normal Conjunctiva NECK; supple, normal thyroid, RESPIRATORY: Diminished to auscultation CARDIOVASCULAR:? Regular S1 S2, GI:? soft, normoactive bowel sounds, : No Renal angle tenderness; EXTREMITIES:? No edema, no clubbing, MUSCULOSKELETAL:? no muscle wasting NEURO: Unresponsive on the vent SKIN: Tattoos on all extremities Weight / BMI Weight Weight: 143 lb 4.807 oz Body Mass Index (BMI) 22.0 ABG / Lab / Microbiology Data Result Diagrams: 12/23/21 03:08 12/23/21 03:08 Laboratory: Laboratory Results - last 24 hr 12/23/21 00:12: Vancomycin Trough 8.7 12/23/21 03:08: WBC 9.3, RBC 3.66 L, Hgb 11.3 L, Hct 35.6 L, MCV 97.3, MCH 30.9, MCHC 31.7 L, RDW Std Deviation 52.3 H, RDW Coeff of [place]ika 14.5, Plt Count 325, MPV 9.9, Immature Gran % (Auto) 0.900, Neut % (Auto) 67.9, Lymph % (Auto) 14.5 L, [place] % (Auto) 12.6 H, Eos % (Auto) 3.7, Baso % (Auto) 0.4, Absolute Neuts (auto) 6.3, Absolute Lymphs (auto) 1.35, Nucleated RBC % 0 12/23/21 03:08: Sodium 141, Potassium 3.5, Chloride 105, Carbon Dioxide 31.0, Anion Gap 5, BUN 24 H, Creatinine 0.48 L, Estim Creat Clear Calc 141.47, Est GFR (MDRD) Af Amer 183, Est GFR (MDRD) Non-Af 151, BUN/Creatinine Ratio 50.3 H, Glucose 129 H, Calcium 8.5, Phosphorus 3.2, Magnesium 1.9 Microbiology: Microbiology 12/18/21 01:10 Blood Culture (Wb) - Anticubital Right Blood Culture - Final No growth in 5 days. 12/18/21 00:40 Blood Culture (Wb) - Anticubital Left Blood Culture - Final No growth in 5 days. 12/18/21 00:35 Sputum, Induced/Lukens Gram Stain - Final 12/18/21 00:35 Sputum, Induced/Lukens Respiratory Culture - Final Meth. resistant Staph. aureus 12/18/21 00:45 Nasal Secretion SARS-CoV-2 Antigen (Rapid) - Final Meaningful Use Info Meaningful Use Diagnoses (Choose all that apply): None applicable Discharge Plan Admission Admit Date/Time: 12/18/21 02:24 Primary Reason for Your Visit: acute cardiopulmonary arrest Attending Provider: Brandie Humphries Primary Care Provider: Care Physician,No Primary Consulting Providers: Charan Sanchez ; Matthew Wagner ; Ancelmo Mcneil ; Johnny Bella ; Mitali Moreno NP ; Teja Marquez ; Michele Pettit Discharge Orders/Prescriptions Prescriptions: No Action paroxetine HCl 10 MG tablet 10 mg PO DAILY Label Comments: mood quetiapine [Seroquel] 200 MG tablet 200 mg PO QHS Label Comments: mental health hydroxyzine pamoate [Vistaril] 50 MG capsule 50 mg PO TID PRN Label Comments: sleep quetiapine [Seroquel] 50 MG tablet 50 mg PO TID Label Comments: mental health trazodone 100 MG tablet 100 mg PO QHS Label Comments: sleep amoxicillin-pot clavulanate 875 MG tablet 875 mg PO Q12H Qty: 14 0RF ketorolac 10 MG tablet 10 mg PO Q8H PRN (Reason: pain) Qty: 20 0RF clindamycin HCl 150 mg capsule 150 mg PO TID Qty: 21 0RF hydroxyzine pamoate [Vistaril] 50 mg capsule 50 mg PO TID Qty: 30 0RF escitalopram oxalate [Lexapro] 10 mg Tablet 10 mg PO DAILY aripiprazole [Abilify] 10 mg Tablet 10 mg PO DAILY Referrals / Follow Up: Care Physician,No Primary [Primary Care Provider] - Disposition Disposition (needs filled in before D/C Order can be placed): Acute Care Hospital Charges/Coding Visit Charges Inpatient E&M: 04189 Disch Hosp
== END 2021-12-23 13:40 | disposition short-term general hospital (02) | DRG 812 ==
LOC: ED 01:38 → ICU 02:44
PROVIDERS: Internal Medicine; Internal Medicine Critical Care Medicine; Emergency Provider Emergency Medicine; Visit Provider Student in an Organized Health Care Education/Training Program
DX: T50.904A Poisoning by unspecified drugs, medicaments and biological substances, undetermined, initial encounter (principal); I46.9 Cardiac arrest, cause unspecified; J69.0 Pneumonitis due to inhalation of food and vomit; G92.8 Other toxic encephalopathy; J96.01 Acute respiratory failure with hypoxia; J15.212 Pneumonia due to Methicillin resistant Staphylococcus aureus; R56.9 Unspecified convulsions; J96.02 Acute respiratory failure with hypercapnia; N17.9 Acute kidney failure, unspecified; G93.1 Anoxic brain damage, not elsewhere classified; F15.10 Other stimulant abuse, uncomplicated; F16.10 Hallucinogen abuse, uncomplicated; E87.6 Hypokalemia; R11.11 Vomiting without nausea; F12.10 Cannabis abuse, uncomplicated; F17.210 Nicotine dependence, cigarettes, uncomplicated; R40.4 Transient alteration of awareness; R23.0 Cyanosis; R79.1 Abnormal coagulation profile; R45.1 Restlessness and agitation; E87.29 Other acidosis; L03.116 Cellulitis of left lower limb
CPT/HCPCS: 31500; 31720; 36600; 51702; 70450; 70496; 70498; 70553; 71045; 71275; 74018; 80048; 80053; 80202; 80307; 82077; 82140; 82550; 82803; 83605; 83735; 83880; 84100; 84443; 84478; 84484; 84703; 85025; 85379; 87040; 87070; 87077; 87186; 87205; 87811; 93005; 93306; 93970; 94002; 94003; 94640; 95819; 97802; 97803; 99251; 99285; A9575; J7030; J7040; J7050; Q9967; A4216; G0463; J0295; J1940; J3010